=== PATIENT | male | born 1960 | race Caucasian/White ===

== ENCOUNTER → 2017-04-10 | Outpatient (CLI) | payer BC, SELFPAY | PROVIDERS: Visit Provider Family Medicine | DX: Z79.01 Long term (current) use of anticoagulants (principal); Z51.81 Encounter for therapeutic drug level monitoring | CPT/HCPCS: 36415; 85610 ==

== ENCOUNTER → 2017-05-15 08:19 | Outpatient (CLI) | payer BC, SELFPAY ==
[2017-05-15 08:43] LABS: INR 2.21 (0.9-1.1); Prothrombin Time 24.1 seconds (9.4-11.8)
== END ==
PROVIDERS: PCP Family Medicine; Visit Provider Family Medicine
DX: Z79.01 Long term (current) use of anticoagulants (principal); Z51.81 Encounter for therapeutic drug level monitoring
CPT/HCPCS: 36415; 85610

== ENCOUNTER → 2017-06-11 09:01 | Outpatient (CLI) | payer BC, SELFPAY ==
[2017-06-11 09:22] LABS: INR 1.42 (0.9-1.1); Prothrombin Time 15.4 seconds (9.4-11.8)
== END ==
PROVIDERS: Visit Provider Family Medicine
DX: Z51.81 Encounter for therapeutic drug level monitoring (principal); Z79.01 Long term (current) use of anticoagulants
CPT/HCPCS: 36415; 85610

== ENCOUNTER → 2017-07-03 10:55 | Outpatient (CLI) | payer BC, SELFPAY ==
[2017-07-03 11:16] LABS: INR 2.64 (0.9-1.1); Prothrombin Time 28.8 seconds (9.4-11.8)
== END ==
PROVIDERS: Visit Provider Family Medicine
DX: Z79.01 Long term (current) use of anticoagulants (principal); Z51.81 Encounter for therapeutic drug level monitoring
CPT/HCPCS: 36415; 85610

== ENCOUNTER → 2017-08-31 11:09 | Outpatient (CLI) | payer BC, SELFPAY ==
[2017-08-31 11:37] LABS: INR 2.38 (0.9-1.1); Prothrombin Time 25.9 seconds (9.4-11.8)
== END ==
PROVIDERS: Visit Provider Family Medicine
DX: Z79.01 Long term (current) use of anticoagulants (principal); Z51.81 Encounter for therapeutic drug level monitoring
CPT/HCPCS: 36415; 85610

== ENCOUNTER → 2017-10-09 08:34 | Outpatient (CLI) | payer BC, SELFPAY ==
[2017-10-09 08:59] LABS: INR 2.44 (0.9-1.1); Prothrombin Time 24.5 seconds (9.4-11.8)
== END ==
PROVIDERS: Visit Provider Family Medicine
DX: Z79.01 Long term (current) use of anticoagulants (principal); Z51.81 Encounter for therapeutic drug level monitoring
CPT/HCPCS: 36415; 85610

== ENCOUNTER → 2017-11-13 08:20 | Outpatient (CLI) | payer BC, SELFPAY ==
[2017-11-13 08:42] LABS: INR 2.19 (0.9-1.1); Prothrombin Time 22.1 seconds (9.4-11.8)
== END ==
PROVIDERS: Visit Provider Family Medicine
DX: Z79.01 Long term (current) use of anticoagulants (principal); Z51.81 Encounter for therapeutic drug level monitoring
CPT/HCPCS: 36415; 85610

== ENCOUNTER → 2018-03-05 11:57 | Outpatient (CLI) | payer BC, SELFPAY ==
[2018-03-05 12:16] LABS: INR 2.53 (0.9-1.1); Prothrombin Time 25.4 seconds (9.4-11.8)
== END ==
PROVIDERS: Visit Provider Family Medicine
DX: Z51.81 Encounter for therapeutic drug level monitoring (principal); Z79.01 Long term (current) use of anticoagulants
CPT/HCPCS: 36415; 85610

== ENCOUNTER → 2018-04-02 10:36 | Outpatient (CLI) | payer BC, SELFPAY ==
[2018-04-02 11:39] LABS: INR 2.98 (0.9-1.1); Prothrombin Time 29.7 seconds (9.4-11.8)
== END ==
PROVIDERS: Visit Provider Family Medicine
DX: Z79.01 Long term (current) use of anticoagulants (principal)
CPT/HCPCS: 36415; 85610

== ENCOUNTER → 2018-06-04 12:51 | Outpatient (CLI) | payer BC, SELFPAY ==
[2018-06-04 13:09] LABS: INR 2.46 (0.9-1.1); Prothrombin Time 24.7 seconds (9.4-11.8)
== END ==
PROVIDERS: Visit Provider Family Medicine
DX: Z51.81 Encounter for therapeutic drug level monitoring (principal); Z79.01 Long term (current) use of anticoagulants
CPT/HCPCS: 36415; 85610

== ENCOUNTER → 2018-07-02 08:01 | Outpatient (CLI) | payer BC, SELFPAY ==
[2018-07-02 08:42] LABS: INR 3.14 (0.9-1.1); Prothrombin Time 31.3 seconds (9.4-11.8)
== END ==
PROVIDERS: Visit Provider Family Medicine
DX: Z51.81 Encounter for therapeutic drug level monitoring (principal); Z79.01 Long term (current) use of anticoagulants
CPT/HCPCS: 36415; 85610

== ENCOUNTER → 2018-09-03 10:37 | Outpatient (CLI) | payer BC, SELFPAY ==
[2018-09-03 10:56] LABS: INR 2.84 (0.9-1.1); Prothrombin Time 28.1 seconds (9.4-11.8)
== END ==
PROVIDERS: Visit Provider Family Medicine
DX: Z51.81 Encounter for therapeutic drug level monitoring (principal); Z79.01 Long term (current) use of anticoagulants
CPT/HCPCS: 36415; 85610

== ENCOUNTER → 2018-10-15 09:56 | Outpatient (CLI) | payer BC, SELFPAY ==
[2018-10-15 10:35] LABS: INR 2.84 (0.9-1.1); Prothrombin Time 28.1 seconds (9.4-11.8)
== END ==
PROVIDERS: Visit Provider Family Medicine
DX: Z51.81 Encounter for therapeutic drug level monitoring (principal); Z79.01 Long term (current) use of anticoagulants
CPT/HCPCS: 36415; 85610

== ENCOUNTER → 2018-12-24 11:23 | Outpatient (CLI) | payer BC, SELFPAY ==
[2018-12-24 11:47] LABS: INR 3.02 (0.9-1.1); Prothrombin Time 29.8 seconds (9.4-11.8)
== END ==
PROVIDERS: Visit Provider Family Medicine
DX: Z51.81 Encounter for therapeutic drug level monitoring (principal); Z79.01 Long term (current) use of anticoagulants; Z86.718 Personal history of other venous thrombosis and embolism
CPT/HCPCS: 36415; 85610

== ENCOUNTER → 2019-03-04 09:39 | Outpatient (CLI) | payer BC, SELFPAY ==
[2019-03-04 10:10] LABS: INR 2.78 (0.9-1.1); Prothrombin Time 27.5 seconds (9.4-11.8)
== END ==
PROVIDERS: Visit Provider Family Medicine
DX: Z51.81 Encounter for therapeutic drug level monitoring (principal); Z79.01 Long term (current) use of anticoagulants; Z86.718 Personal history of other venous thrombosis and embolism
CPT/HCPCS: 36415; 85610

== ENCOUNTER → 2019-04-08 12:54 | Outpatient (CLI) | payer BC, SELFPAY ==
[2019-04-08 14:29] LABS: INR 2.98 (0.9-1.1); Prothrombin Time 29.4 seconds (9.4-11.8)
== END ==
PROVIDERS: Visit Provider Family Medicine
DX: Z51.81 Encounter for therapeutic drug level monitoring (principal); Z79.01 Long term (current) use of anticoagulants; Z86.718 Personal history of other venous thrombosis and embolism
CPT/HCPCS: 36415; 85610

== ENCOUNTER → 2019-06-10 11:40 | Outpatient (CLI) | payer BC, SELFPAY ==
[2019-06-10 12:15] LABS: INR 2.72 (0.9-1.1)
== END ==
PROVIDERS: Visit Provider Family Medicine
DX: Z51.81 Encounter for therapeutic drug level monitoring (principal); Z79.01 Long term (current) use of anticoagulants; Z86.718 Personal history of other venous thrombosis and embolism
CPT/HCPCS: 36415; 85610

== ENCOUNTER → 2019-07-08 12:02 | Outpatient (CLI) | payer BC, SELFPAY ==
[2019-07-08 12:23] LABS: INR 2.68 (0.9-1.1); Prothrombin Time 26.6 seconds (9.4-11.8)
== END ==
PROVIDERS: Visit Provider Family Medicine
DX: Z51.81 Encounter for therapeutic drug level monitoring (principal); Z79.01 Long term (current) use of anticoagulants; Z86.718 Personal history of other venous thrombosis and embolism
CPT/HCPCS: 36415; 85610

== ENCOUNTER → 2019-08-03 11:01 | Outpatient (CLI) | payer BC, SELFPAY ==
--- NOTE | 2019-08-03 11:06 | XR_ITS ---
PROCEDURE: XR HAND LT MIN 3V CLINICAL INDICATION: Pain and stiffness COMPARISON: No exams were available for comparison FINDINGS: No fracture or dislocation. No lytic or blastic change. There is normal mineralization. Minimal osteoarthritic changes are present at the 1st metacarpal-carpal joint with some mild lateral subluxation of the 1st metacarpal. Ring artifact is present at the proximal phalanx of the 4th finger Other findings:None. IMPRESSION: Minimal osteoarthritic change 1st metacarpal-carpal joint Dictated by: Jacob Bah MD 08/03/2019 12:27 Electronically signed by Jacob Bah MD in [place] 08/03/2019 12:27
--- NOTE | 2019-08-03 11:06 | XR_ITS ---
PROCEDURE: XR HAND RT MIN 3V CLINICAL INDICATION: POLYARTHRALGIA COMPARISON: No exams were available for comparison FINDINGS: There are mild osteoarthritic changes the 1st metacarpophalangeal joint and 1st interphalangeal joint No fracture or dislocation. No lytic or blastic change. Other findings:None. IMPRESSION: Mild osteoarthritis of the thumb Dictated by: Jacob Bah MD 08/03/2019 12:12 Electronically signed by Jacob Bah MD in [place] 08/03/2019 12:12
== END ==
PROVIDERS: PCP Family Medicine; Visit Provider Family Medicine
DX: M25.50 Pain in unspecified joint (principal); M79.642 Pain in left hand; M79.641 Pain in right hand
CPT/HCPCS: 73130

== ENCOUNTER → 2019-09-09 10:03 | Outpatient (CLI) | payer BC, SELFPAY ==
[2019-09-09 11:00] LABS: INR 2.55 (0.9-1.1); Prothrombin Time 24.7 seconds (9.4-11.8)
== END ==
PROVIDERS: Visit Provider Family Medicine
DX: Z86.718 Personal history of other venous thrombosis and embolism (principal); Z79.01 Long term (current) use of anticoagulants
CPT/HCPCS: 36415; 85610

== ENCOUNTER → 2019-10-06 14:49 | Outpatient (CLI) | payer BC, SELFPAY ==
[2019-10-06 15:09] LABS: INR 2.69 (0.9-1.1)
== END ==
PROVIDERS: Visit Provider Family Medicine
DX: Z51.81 Encounter for therapeutic drug level monitoring (principal); Z79.01 Long term (current) use of anticoagulants; Z86.718 Personal history of other venous thrombosis and embolism
CPT/HCPCS: 36415; 85610

== ENCOUNTER → 2019-12-30 09:48 | Outpatient (CLI) | payer BC, SELFPAY ==
[2019-12-30 10:19] LABS: INR 2.63 (0.9-1.1); Prothrombin Time 25.4 seconds (9.4-11.8)
== END ==
PROVIDERS: Visit Provider Family Medicine
DX: Z51.81 Encounter for therapeutic drug level monitoring (principal); Z79.01 Long term (current) use of anticoagulants; Z86.718 Personal history of other venous thrombosis and embolism
CPT/HCPCS: 36415; 85610

== ENCOUNTER → 2020-02-09 11:09 | Outpatient (CLI) | payer BC, SELFPAY ==
[2020-02-09 12:06] LABS: INR 2.48 (0.9-1.1); Prothrombin Time 25.3 seconds (9.4-11.8)
== END ==
PROVIDERS: Visit Provider Family Medicine
DX: Z51.81 Encounter for therapeutic drug level monitoring (principal); Z79.01 Long term (current) use of anticoagulants; Z86.718 Personal history of other venous thrombosis and embolism
CPT/HCPCS: 36415; 85610

== ENCOUNTER → 2020-03-16 11:12 | Outpatient (CLI) | payer BC, SELFPAY ==
[2020-03-16 12:14] LABS: INR 2.81 (0.9-1.1); Prothrombin Time 28.4 seconds (9.4-11.8)
== END ==
PROVIDERS: Visit Provider Family Medicine
DX: Z51.81 Encounter for therapeutic drug level monitoring (principal); Z79.01 Long term (current) use of anticoagulants; Z86.718 Personal history of other venous thrombosis and embolism
CPT/HCPCS: 36415; 85610

== ENCOUNTER → 2020-04-20 12:01 | Outpatient (CLI) | payer BC, SELFPAY ==
[2020-04-20 13:04] LABS: INR 2.31 (0.9-1.1); Prothrombin Time 23.8 seconds (9.4-11.8)
== END ==
PROVIDERS: Visit Provider Family Medicine
DX: Z51.81 Encounter for therapeutic drug level monitoring (principal); Z79.01 Long term (current) use of anticoagulants; Z86.718 Personal history of other venous thrombosis and embolism
CPT/HCPCS: 36415; 85610

== ENCOUNTER → 2020-06-01 09:27 | Outpatient (CLI) | payer BC, SELFPAY ==
[2020-06-01 10:30] LABS: Chloride 106 mmol/L (98-107); Sodium 141 mmol/L (136-145)
[2020-06-01 10:31] LABS: Potassium 4.6 mmoL/L (3.5-5.1)
[2020-06-01 10:33] LABS: Alanine Aminotransferase 26 U/L (12-78); Albumin Level 4.5 g/dl (3.5-5.0); Albumin/Globulin Ratio 1.3 (1.1-1.8); Alkaline Phosphatase 52 U/L (38-126); Anion Gap 12.6 mEq/L (5-15); Aspartate Amino Transferase 26 U/L (17-59); Bilirubin,Total 0.8 mg/dl (0.2-1.3); Blood Urea Nitrogen 22 mg/dl (9-20); Carbon Dioxide 27 mmol/L (22.0-30.0); Cholesterol 132 mg/dl (140-200); Estimated Glomerular Filt Rate 68 ml/min (>60); GFR (African American) 82 ML/MIN (>60); Globulin 3.4 g/dL (1.3-3.2); Total Protein,Serum 7.9 g/dl (6.3-8.2); Triglycerides 154 mg/dl (30-150); VLDL Cholesterol 31 mg/dL (0-40)
[2020-06-01 10:34] LABS: Calcium 9.7 mg/dl (8.4-10.2); Chol/HDL Ratio 3.3 (1-3.5); Glucose 133 mg/dl (74-100); HDL Cholesterol 40 mg/dl (40-60)
[2020-06-01 10:45] LABS: Direct LDL Cholesterol 64.15 mg/dL (100-129)
[2020-06-01 10:48] LABS: Creatinine,Urine Random 81 mg/dL (Not Estab.); Microalbumin < 6.000 mg/L (0-16.7)
[2020-06-01 10:50] LABS: 25-OH Vitamin D, Total 51.3 ng/mL (30-100)
[2020-06-01 10:50] LABS: INR 1.95 (0.9-1.1); Prothrombin Time 20.4 seconds (9.4-11.8)
[2020-06-01 10:59] LABS: Uric Acid 3.8 mg/dl (3.5-8.5)
[2020-06-01 11:05] LABS: Thyroid Stimulating Hormone 1.08 uIU/mL (0.465-4.68)
[2020-06-01 11:19] LABS: Hemoglobin A1C 7.1 % (4.0-6.0)
== END ==
PROVIDERS: Visit Provider Family Medicine
DX: E11.9 Type 2 diabetes mellitus without complications (principal); E78.2 Mixed hyperlipidemia; E55.9 Vitamin D deficiency, unspecified; I10 Essential (primary) hypertension; M1A.9XX0 Chronic gout, unspecified, without tophus (tophi); Z79.84 Long term (current) use of oral hypoglycemic drugs
CPT/HCPCS: 36415; 80053; 80061; 82043; 82306; 82570; 83036; 84443; 84550; 85610

== ENCOUNTER → 2020-07-06 10:21 | Outpatient (CLI) | payer BC, SELFPAY ==
[2020-07-06 10:42] LABS: INR 1.82 (0.9-1.1); Prothrombin Time 20.5 seconds (10.1-12.5)
== END ==
PROVIDERS: Visit Provider Family Medicine
DX: Z79.01 Long term (current) use of anticoagulants (principal); Z86.718 Personal history of other venous thrombosis and embolism
CPT/HCPCS: 36415; 85610

== ENCOUNTER → 2020-08-17 08:55 | Outpatient (CLI) | payer BC, SELFPAY ==
[2020-08-17 09:41] LABS: INR 2.63 (0.9-1.1); Prothrombin Time 28.9 seconds (10.1-12.5)
== END ==
PROVIDERS: Visit Provider Family Medicine
DX: Z51.81 Encounter for therapeutic drug level monitoring (principal); Z79.01 Long term (current) use of anticoagulants; Z86.718 Personal history of other venous thrombosis and embolism
CPT/HCPCS: 36415; 85610

== ENCOUNTER → 2020-09-14 09:21 | Outpatient (CLI) | payer BC, SELFPAY ==
[2020-09-14 09:54] LABS: Prothrombin Time 43.5 seconds (10.1-12.5)
[2020-09-14 10:18] LABS: INR 4.09 (0.9-1.1)
== END ==
PROVIDERS: Visit Provider Family Medicine
DX: Z51.81 Encounter for therapeutic drug level monitoring (principal); Z79.01 Long term (current) use of anticoagulants; Z86.718 Personal history of other venous thrombosis and embolism
CPT/HCPCS: 36415; 85610

== ENCOUNTER 2020-09-14 13:19 | Emergency (ER) | payer BC, SELFPAY ==
[2020-09-14 13:59] VITALS: BP 155/87; PULSE 86; RESP 14; TEMP 36.8; O2SAT 98; BMI 36.6
--- NOTE | 2020-09-14 14:09 | HMH.EDUTC ---
[facility] [place] Disposition Clinical Impression: Left leg cellulitis, Abscess of left leg Disposition: Home, Self-Care Condition on Discharge: Good Instructions: Cellulitis, Boil Additional Instructions: Keep the wounds clean and dry. Follow up with your regular doctor. Take the antibiotics as directed and apply the topical antibiotics as directed. Follow up with your primary care doctor. Since you are diabetic, it makes infections like this very worrisome. You should f/u for a recheck in 48 to 72 hours to make sure it is getting better instead of worse. GO TO THE ER FOR ANY WORSENING SYMPTOMS Prescriptions: Sulfamethoxazole/Trimethoprim [Bactrim DS tablet] 1 each PO BID 10 Days #20 tab Transmission Status: Received by [facility] # cephALEXin [cephALEXin 500mg capsule] 500 mg PO Q6H 10 Days #40 cap Transmission Status: Received by [facility] # Referrals: Drew Stout MD [Primary Care Provider] - Time of Disposition: 14:19 Medical Decision Making - Medical Records Medical records reviewed: No: I reviewed the patient's medical records. - Jose Inquiry Pt receiving controlled substance: No Vital Signs: 09/14/20 13:59 09/14/20 14:28 Temperature 98.3 F 98.3 F Temperature Source Oral Pulse Rate 85 Pulse Rate [Right] 86 Respiratory Rate 14 16 Blood Pressure 149/89 H Blood Pressure [Right Arm] 155/87 H Blood Pressure Mean [Right Arm] 109 02 Sat by Pulse Oximetry 98 Orders (Tests/Meds): ED MEDICATIONS Discontinued Medications Generic Name Dose Route Start Last Admin Trade Name Manuelq PRN Reason Stop Dose Admin Ceftriaxone Sodium 1 gm 09/14/20 14:25 09/14/20 14:26 Ceftriaxone 1gm Vial IM 09/14/20 14:26 1 gm ONCE ONE Administration Protocol Lidocaine HCl 0 ml 09/14/20 14:25 09/14/20 14:26 Lidocaine 1% 5ml Pf Vial IM 09/14/20 14:26 2 ml ONCE ONE Administration ORDERS Category Date Time Status Wound Culture and Gram Stain Stat Micro 09/14/20 14:30 Results [facility] [place] HPI - General Stated complaint: Poss Bug bite on left leg Time Seen by Provider: 09/14/20 14:15 Mode of Arrival: Ambulatory Source of Information: Patient Limitations: No Limitations Description of Symptoms (Recalled from Triage Doc. by RN): pt c/o of a bug bit on his lower L barrow. it appears as cellulitis on the L outer barrow. the area is purple with red all around it and oozing red/purulent drainage. HEENT Symptoms (Recalled from RN notes): No Resp Symptoms (Recalled from RN notes): No Skin Symptoms (Recalled from RN notes): Yes (L outer barrow cellulitis) MS Symptoms (Recalled from RN notes): No Functional Status (Recalled from RN notes): na - History of Present Illness Provider Complaint: He states that for the past 2 days he has had a red area on his left lower leg that has bene painful and swollen. There is now an open area in its center that has a moderate amount of clear drainage coming from it. - Related Data Home Medications Medication Instructions Recorded Confirmed Empagliflozin [Jardiance] 10 mg PO DAILY 11/28/18 11/28/18 Enoxaparin Sodium [Lovenox 100 mg SQ DAILY 11/28/18 11/28/18 100mg/mL syringe] Fenofibrate 40 mg PO DAILY 11/28/18 11/28/18 Metformin HCl [Metformin 1000mg 1,000 mg PO BID 11/28/18 11/28/18 Tablets] Multivit-Min/FA/Lycopen/Lutein 1 tab PO DAILY 11/28/18 11/28/18 [Centrum Silver Men Tablet] Pravastatin Sodium [Pravachol] 20 mg PO DAILY 11/28/18 11/28/18 Warfarin Sodium [Jantoven] 10 mg PO DAILY 11/28/18 11/28/18 allopurinoL [Allopurinol 100mg 100 mg PO DAILY 11/28/18 11/28/18 tablet] Previous Rx's Medication Instructions Recorded Sulfamethoxazole/Trimethoprim 1 each PO BID 10 Days #20 tab 09/14/20 [Bactrim DS tablet] cephALEXin [cephALEXin 500mg 500 mg PO Q6H 10 Days #40 cap 09/14/20 capsule] Allergies Allergy/AdvReac Type Severity Reaction Status Date / Time No Known Allergies Allergy
[2020-09-14 14:28] VITALS: BP 149/89; PULSE 85; RESP 16; TEMP 36.8
== END 2020-09-14 14:42 | disposition home or self-care (01) ==
PROVIDERS: Emergency Provider Nurse Practitioner Family; PCP Family Medicine
DX: L03.116 Cellulitis of left lower limb (principal); W57.XXXA Bitten or stung by nonvenomous insect and other nonvenomous arthropods, initial encounter
CPT/HCPCS: 87070; 87077; 87186; 87205; 96372; 99202; G0463

== ENCOUNTER → 2020-11-02 11:07 | Outpatient (CLI) | payer BC, SELFPAY ==
[2020-11-02 11:36] LABS: Prothrombin Time 27.7 seconds (10.1-12.5)
[2020-11-02 11:39] LABS: INR 2.51 (0.9-1.1)
== END ==
PROVIDERS: Visit Provider Family Medicine
DX: Z51.81 Encounter for therapeutic drug level monitoring (principal); Z79.01 Long term (current) use of anticoagulants; Z86.718 Personal history of other venous thrombosis and embolism
CPT/HCPCS: 85610

== ENCOUNTER → 2020-12-21 10:43 | Outpatient (CLI) | payer BC, SELFPAY ==
[2020-12-21 11:18] LABS: Prothrombin Time 37.2 seconds (10.1-12.5)
[2020-12-21 11:26] LABS: INR 3.46 (0.9-1.1)
== END ==
PROVIDERS: Visit Provider Family Medicine
DX: Z51.81 Encounter for therapeutic drug level monitoring (principal); Z79.01 Long term (current) use of anticoagulants; Z86.718 Personal history of other venous thrombosis and embolism
CPT/HCPCS: 36415; 85610

== ENCOUNTER → 2021-01-24 09:15 | Outpatient (CLI) | payer BC, SELFPAY ==
[2021-01-24 09:59] LABS: INR 2.85 (0.9-1.1); Prothrombin Time 29.8 seconds (10.1-12.5)
== END ==
PROVIDERS: Visit Provider Family Medicine
DX: Z51.81 Encounter for therapeutic drug level monitoring (principal); Z79.01 Long term (current) use of anticoagulants; Z86.718 Personal history of other venous thrombosis and embolism
CPT/HCPCS: 36415; 85610

== ENCOUNTER → 2021-02-22 11:51 | Outpatient (CLI) | payer BC, SELFPAY ==
[2021-02-22 14:12] LABS: INR 1.83 (0.9-1.1); Prothrombin Time 19.8 seconds (10.1-12.5)
== END ==
PROVIDERS: Visit Provider Family Medicine
DX: Z51.81 Encounter for therapeutic drug level monitoring (principal); Z79.01 Long term (current) use of anticoagulants; Z86.718 Personal history of other venous thrombosis and embolism
CPT/HCPCS: 36415; 85610

== ENCOUNTER → 2021-03-29 10:20 | Outpatient (CLI) | payer BC, SELFPAY ==
[2021-03-29 10:47] LABS: INR 3.25 (0.9-1.1); Prothrombin Time 33.7 seconds (10.1-12.5)
== END ==
PROVIDERS: Visit Provider Family Medicine
DX: Z51.81 Encounter for therapeutic drug level monitoring (principal); Z79.01 Long term (current) use of anticoagulants; Z86.718 Personal history of other venous thrombosis and embolism
CPT/HCPCS: 36415; 85610

== ENCOUNTER → 2021-06-07 08:43 | Outpatient (CLI) | payer BC, SELFPAY ==
[2021-06-07 09:46] LABS: INR 2.03 (0.9-1.1); Prothrombin Time 21.8 seconds (10.1-12.5)
== END ==
PROVIDERS: PCP Family Medicine; Visit Provider Family Medicine
DX: Z51.81 Encounter for therapeutic drug level monitoring (principal); Z79.01 Long term (current) use of anticoagulants; Z86.718 Personal history of other venous thrombosis and embolism
CPT/HCPCS: 36415; 85610

== ENCOUNTER → 2021-07-19 08:56 | Outpatient (CLI) | payer BC, SELFPAY ==
[2021-07-19 09:34] LABS: INR 2.27 (0.9-1.1); Prothrombin Time 24.1 seconds (10.1-12.5)
== END ==
PROVIDERS: Visit Provider Family Medicine
DX: Z51.81 Encounter for therapeutic drug level monitoring (principal); Z79.01 Long term (current) use of anticoagulants; Z86.718 Personal history of other venous thrombosis and embolism
CPT/HCPCS: 36415; 85610

== ENCOUNTER → 2021-09-01 10:36 | Outpatient (CLI) | payer BC, SELFPAY ==
[2021-09-01 11:54] LABS: INR 2.02 (0.9-1.1); Prothrombin Time 21.7 seconds (10.1-12.5)
== END ==
PROVIDERS: Family Medicine; Visit Provider Family Medicine
DX: Z51.81 Encounter for therapeutic drug level monitoring (principal); Z79.01 Long term (current) use of anticoagulants; Z86.718 Personal history of other venous thrombosis and embolism
CPT/HCPCS: 36415; 85610

== ENCOUNTER → 2021-11-29 12:01 | Outpatient (CLI) | payer BC, SELFPAY ==
[2021-11-29 12:49] LABS: INR 2.34 (0.9-1.1); Prothrombin Time 24.8 seconds (10.1-12.5)
== END ==
PROVIDERS: PCP Family Medicine; Visit Provider Family Medicine
DX: Z51.81 Encounter for therapeutic drug level monitoring (principal); Z79.01 Long term (current) use of anticoagulants; Z86.718 Personal history of other venous thrombosis and embolism
CPT/HCPCS: 36415; 85610

== ENCOUNTER → 2022-01-10 09:17 | Outpatient (CLI) | payer BC, SELFPAY ==
[2022-01-10 10:02] LABS: INR 2.93 (0.9-1.1); Prothrombin Time 29.8 seconds (10.1-12.5)
== END ==
PROVIDERS: PCP Family Medicine; Visit Provider Family Medicine
DX: Z51.81 Encounter for therapeutic drug level monitoring (principal); Z79.01 Long term (current) use of anticoagulants; Z86.718 Personal history of other venous thrombosis and embolism
CPT/HCPCS: 36415; 85610

== ENCOUNTER → 2022-02-14 09:56 | Outpatient (CLI) | payer BC, SELFPAY ==
[2022-02-14 10:58] LABS: INR 2.29 (0.9-1.1); Prothrombin Time 23.6 seconds (10.1-12.5)
== END ==
PROVIDERS: PCP Family Medicine; Visit Provider Family Medicine
DX: Z51.81 Encounter for therapeutic drug level monitoring (principal); Z79.01 Long term (current) use of anticoagulants; Z86.718 Personal history of other venous thrombosis and embolism
CPT/HCPCS: 36415; 85610

== ENCOUNTER 2022-02-28 10:33 | Emergency (ER) | payer BC, SELFPAY ==
--- NOTE | 2022-02-28 11:27 | EXP.UTC ---
Discharge Plan Disposition Patient Disposition: Home, Self-Care Condition: Good Prescriptions Prescriptions: New cephalexin 500 mg capsule 500 mg PO QID Qty: 40 0RF mupirocin 2 % ointment 1 applic topical TID 7 Days Qty: 1 0RF No Action warfarin 10 MG tablet 10 mg PO DAILY allopurinol 100 MG tablet 100 mg PO DAILY metformin 1,000 MG tablet 1,000 mg PO BID pravastatin 20 MG tablet 20 mg PO DAILY enoxaparin 100 MG/ML syringe 100 mg SQ DAILY fenofibrate 40 MG tablet 40 mg PO DAILY wmoyhjrr-qpx-AT-lycopen-lutein 1 EACH tablet 1 tab PO DAILY empagliflozin 10 MG tablet 10 mg PO DAILY sulfamethoxazole-trimethoprim 1 EACH tablet 1 each PO BID 10 Days Qty: 20 0RF cephalexin 500 MG capsule 500 mg PO Q6H 10 Days Qty: 40 0RF Referrals Follow up/Referrals: Drew Stout MD [Primary Care Provider] - See instructions Activity Restrictions/Add. Instructions Additional Instructions/Restrictions: Keep the wound clean and dry. Watch the wound for signs of infection, such as redness, swelling, drainage, fever. etc. take tylenol for pain. Follow up with your regular doctor. GO TO THE ER FOR ANY WORSENING SYMPTOMS OR CONCERNS. Clinical Impressions Clinical Impression: Cellulitis of left leg, Ulcer of left lower extremity Instructions Patient Instructions: Cellulitis Discharge ED [place] Óscar Calhoun [facility] [place] General Stated complaint: left leg redness,sore Time Seen by Provider: 02/28/22 11:25 History of Present Illness Provider Complaint: He is here with a wound and redness of his left lower leg. He states that he first noticed the wound last night. He is a diabetic. He had a similar wound on his other leg last year that he had to take rocephin shots to get it to heal. Related Data Home Medications Medication Instructions Recorded Confirmed allopurinol 100 mg tablet 100 mg PO DAILY blood pressure 11/28/18 11/28/18 empagliflozin 10 mg tablet 10 mg PO DAILY Diabetes 11/28/18 11/28/18 enoxaparin 100 mg/mL subcutaneous 100 mg SQ DAILY Blood thinner 11/28/18 11/28/18 syringe fenofibrate 40 mg tablet 40 mg PO DAILY cholestrol 11/28/18 11/28/18 metformin 1,000 mg tablet 1,000 mg PO BID Diabetes 11/28/18 11/28/18 rrjqzsjq-yjn-estxw acid 300 1 tab PO DAILY Supplement 11/28/18 11/28/18 mcg-lycopene 600 mcg-lutein 300 mcg tablet pravastatin 20 mg tablet 20 mg PO DAILY cholestrol 11/28/18 11/28/18 warfarin 10 mg tablet 10 mg PO DAILY Blood thinner 11/28/18 11/28/18 Previous Rx's Medication Instructions Recorded cephalexin 500 mg capsule 500 mg PO Q6H 10 days #40 caps 09/14/20 sulfamethoxazole 800 1 each PO BID 10 days #20 tabs 09/14/20 mg-trimethoprim 160 mg tablet cephalexin 500 mg capsule 500 mg PO QID #40 caps 02/28/22 mupirocin 2 % topical ointment 1 applic topical TID 7 days #1 g 02/28/22 Allergies Allergy/AdvReac Type Severity Reaction Status Date / Time No Known Allergies Allergy Verified 02/28/22 11:35 PFSH PFS Social History Smoking Status: Former smoker alcohol intake: former current occupational status: employed Travel in the last 8 weeks: None caffeine: Yes ROS Obtained: Yes All systems reviewed & no additional complaints except as documented Constitutional Constitutional: Denies chills and Denies fever(s) Eyes Eyes: Denies eye discharge ENT Ears, Nose, Mouth, and Throat: Denies dizziness, Denies otalgia and Denies sore throat Cardiovascular Cardiovascular: Denies chest pain Respiratory Respiratory: Denies shortness of breath, Denies chest congestion, Denies cough, Denies stridor and Denies wheezing Gastrointestinal Gastrointestingal: Denies nausea or vomiting Musculoskeletal Musculoskeletal: Reports system reviewed and no additional complaints, except as documented and Denies arthralgias Integumentary/Breasts Skin
[2022-02-28 11:32] VITALS: BP 182/68; PULSE 69; RESP 18; TEMP 36.6; O2SAT 95; BMI 36.6
[2022-02-28 12:02] VITALS: BP 0/0; PULSE 105; RESP 19; TEMP 38.2
== END 2022-02-28 12:02 | disposition home or self-care (01) ==
PROVIDERS: Emergency Provider Nurse Practitioner Family; PCP Family Medicine
DX: L03.116 Cellulitis of left lower limb (principal); E11.622 Type 2 diabetes mellitus with other skin ulcer; L97.921 Non-pressure chronic ulcer of unspecified part of left lower leg limited to breakdown of skin; Z79.84 Long term (current) use of oral hypoglycemic drugs; Z79.01 Long term (current) use of anticoagulants; Z79.899 Other long term (current) drug therapy
CPT/HCPCS: 87070; 87205; 96372; 99213; G0463; J0696

== ENCOUNTER → 2022-03-21 09:52 | Outpatient (CLI) | payer BC, SELFPAY ==
[2022-03-21 10:24] LABS: INR 2.48 (0.9-1.1); Prothrombin Time 25.4 seconds (10.1-12.5)
== END ==
PROVIDERS: PCP Family Medicine; Visit Provider Family Medicine
DX: Z51.81 Encounter for therapeutic drug level monitoring (principal); Z79.01 Long term (current) use of anticoagulants; Z86.718 Personal history of other venous thrombosis and embolism
CPT/HCPCS: 36415; 85610

== ENCOUNTER → 2022-05-30 10:37 | Outpatient (CLI) | payer BC, SELFPAY ==
[2022-05-30 13:23] LABS: Prothrombin Time 27.6 seconds (10.1-12.5)
== END ==
PROVIDERS: PCP Family Medicine; Visit Provider Family Medicine
DX: Z51.81 Encounter for therapeutic drug level monitoring (principal); Z79.01 Long term (current) use of anticoagulants
CPT/HCPCS: 36415; 85610

== ENCOUNTER → 2022-07-04 09:21 | Outpatient (CLI) | payer BC, SELFPAY ==
[2022-07-04 10:02] LABS: INR 3.35 (0.9-1.1); Prothrombin Time 33.8 seconds (10.1-12.5)
== END ==
PROVIDERS: PCP Family Medicine; Visit Provider Family Medicine
DX: Z51.81 Encounter for therapeutic drug level monitoring (principal); Z79.01 Long term (current) use of anticoagulants
CPT/HCPCS: 36415; 85610

== ENCOUNTER → 2022-08-07 11:38 | Outpatient (CLI) | payer BC, SELFPAY ==
[2022-08-07 12:07] LABS: INR 2.33 (0.9-1.1)
== END ==
PROVIDERS: PCP Family Medicine; Visit Provider Family Medicine
DX: Z51.81 Encounter for therapeutic drug level monitoring (principal); Z79.01 Long term (current) use of anticoagulants
CPT/HCPCS: 36415; 85610

== ENCOUNTER → 2022-09-12 11:16 | Outpatient (CLI) | payer BC, SELFPAY ==
[2022-09-12 12:53] LABS: INR 2.59 (0.9-1.1); Prothrombin Time 26.5 seconds (10.1-12.5)
== END ==
PROVIDERS: PCP Family Medicine; Visit Provider Family Medicine
DX: Z51.81 Encounter for therapeutic drug level monitoring (principal); Z79.01 Long term (current) use of anticoagulants
CPT/HCPCS: 36415; 85610

== ENCOUNTER → 2022-11-23 11:26 | Outpatient (CLI) | payer BC, SELFPAY ==
[2022-11-23 12:15] LABS: INR 2.18 (0.9-1.1); Prothrombin Time 22.4 seconds (10.1-12.5)
== END ==
PROVIDERS: PCP Family Medicine; Visit Provider Family Medicine
DX: Z51.81 Encounter for therapeutic drug level monitoring (principal); Z79.01 Long term (current) use of anticoagulants
CPT/HCPCS: 36415; 85610

== ENCOUNTER → 2022-12-19 12:22 | Outpatient (CLI) | payer BC, SELFPAY | PROVIDERS: PCP Family Medicine; Visit Provider Family Medicine | DX: Z51.81 Encounter for therapeutic drug level monitoring (principal); Z79.01 Long term (current) use of anticoagulants | CPT/HCPCS: 36415; 85610 ==

== ENCOUNTER → 2023-01-23 09:06 | Outpatient (CLI) | payer BC, SELFPAY ==
[2023-01-23 09:45] LABS: INR 3.78 (0.9-1.1); Prothrombin Time 37.4 seconds (10.1-12.5)
== END ==
PROVIDERS: PCP Family Medicine; Visit Provider Family Medicine
DX: Z51.81 Encounter for therapeutic drug level monitoring (principal); Z79.01 Long term (current) use of anticoagulants
CPT/HCPCS: 36415; 85610

== ENCOUNTER → 2023-02-24 16:02 | Outpatient (CLI) | payer BC, SELFPAY ==
[2023-02-24 16:32] LABS: Prothrombin Time 17.7 seconds (10.1-12.5)
== END ==
PROVIDERS: PCP Family Medicine; Visit Provider Family Medicine
DX: Z79.01 Long term (current) use of anticoagulants (principal); Z86.718 Personal history of other venous thrombosis and embolism
CPT/HCPCS: 36415; 85610

== ENCOUNTER → 2023-03-27 12:10 | Outpatient (CLI) | payer BC, SELFPAY ==
[2023-03-27 13:10] LABS: INR 2.47 (0.9-1.1); Prothrombin Time 25.1 seconds (10.1-12.5)
== END ==
PROVIDERS: PCP Family Medicine; Visit Provider Family Medicine
DX: Z79.01 Long term (current) use of anticoagulants (principal)
CPT/HCPCS: 36415; 85610

== ENCOUNTER 2023-06-03 15:40 | Outpatient (CLI) | payer BC, SELFPAY ==
[2023-06-03 16:30] LABS: INR 2.29 (0.9-1.1); Prothrombin Time 23.4 seconds (10.1-12.5)
== END 2023-06-03 23:59 ==
LOC: LAB 15:42
PROVIDERS: PCP Family Medicine; Visit Provider Family Medicine
DX: Z79.01 Long term (current) use of anticoagulants (principal)
CPT/HCPCS: 36415; 85610

== ENCOUNTER 2023-07-03 12:48 | Outpatient (CLI) | payer BC, SELFPAY ==
[2023-07-03 13:12] LABS: Prothrombin Time 24.5 seconds (10.1-12.5)
== END 2023-07-03 23:59 ==
LOC: LAB 12:50
PROVIDERS: PCP Family Medicine; Visit Provider Family Medicine
DX: Z79.01 Long term (current) use of anticoagulants (principal); Z86.718 Personal history of other venous thrombosis and embolism
CPT/HCPCS: 36415; 85610

== ENCOUNTER 2023-08-11 10:34 | Outpatient (CLI) | payer MEDICARE, OTHER, SELFPAY ==
[2023-08-11 11:02] LABS: INR 1.96 (0.9-1.1); Prothrombin Time 20.3 seconds (10.1-12.5)
== END 2023-08-11 23:59 | disposition home or self-care (01) ==
LOC: LAB 10:36
PROVIDERS: PCP Family Medicine; Visit Provider Family Medicine
DX: Z51.81 Encounter for therapeutic drug level monitoring; Z79.01 Long term (current) use of anticoagulants
CPT/HCPCS: 36415; 85610

== ENCOUNTER 2023-11-22 13:42 | Outpatient (CLI) | payer MEDICARE, OTHER, SELFPAY ==
[2023-11-22 14:34] LABS: INR 2.54 (0.9-1.1); Prothrombin Time 25.9 seconds (10.1-12.5)
== END 2023-11-22 23:59 | disposition home or self-care (01) ==
LOC: LAB 13:43
PROVIDERS: PCP Family Medicine; Visit Provider Family Medicine
DX: Z79.01 Long term (current) use of anticoagulants (principal)
CPT/HCPCS: 36415; 85610

== ENCOUNTER 2023-12-31 12:01 | Outpatient (CLI) | payer MEDICARE, OTHER, SELFPAY ==
[2023-12-31 12:34] LABS: INR 2.41 (0.9-1.1); Prothrombin Time 24.7 seconds (10.1-12.5)
== END 2023-12-31 23:59 | disposition home or self-care (01) ==
LOC: LAB 12:05
PROVIDERS: PCP Family Medicine; Visit Provider Family Medicine
DX: Z79.01 Long term (current) use of anticoagulants (principal); Z86.718 Personal history of other venous thrombosis and embolism
CPT/HCPCS: 36415; 85610

== ENCOUNTER 2024-01-27 10:40 | Outpatient (CLI) | payer MEDICARE, OTHER, SELFPAY ==
[2024-01-27 11:31] LABS: INR 1.84 (0.9-1.1); Prothrombin Time 19.4 seconds (10.1-12.5)
== END 2024-01-27 23:59 | disposition home or self-care (01) ==
LOC: LAB 10:42
PROVIDERS: PCP Family Medicine; Visit Provider Family Medicine
DX: Z79.01 Long term (current) use of anticoagulants (principal)
CPT/HCPCS: 36415; 85610

== ENCOUNTER 2024-03-14 10:28 | Outpatient (CLI) | payer MEDICARE, OTHER, SELFPAY ==
[2024-03-14 11:04] LABS: INR 1.85 (0.9-1.1); Prothrombin Time 19.5 seconds (10.1-12.5)
== END 2024-03-14 23:59 | disposition home or self-care (01) ==
LOC: LAB 10:29
PROVIDERS: PCP Family Medicine; Visit Provider Family Medicine
DX: Z79.01 Long term (current) use of anticoagulants (principal)
CPT/HCPCS: 36415; 85610

== ENCOUNTER 2024-06-05 11:54 | Outpatient (CLI) | payer MEDICARE, OTHER, SELFPAY ==
[2024-06-05 12:45] LABS: INR 1.76 (0.9-1.1); Prothrombin Time 18.3 seconds (9.2-12.1)
== END 2024-06-05 23:59 | disposition home or self-care (01) ==
LOC: LAB 11:55
PROVIDERS: PCP Family Medicine; Visit Provider Family Medicine
DX: Z79.01 Long term (current) use of anticoagulants (principal)
CPT/HCPCS: 36415; 85610

== ENCOUNTER 2024-07-07 12:51 | Outpatient (CLI) | payer MEDICARE, OTHER, SELFPAY ==
[2024-07-07 13:16] LABS: INR 2.56 (0.9-1.1); Prothrombin Time 26.1 seconds (10.1-12.5)
== END 2024-07-07 23:59 | disposition home or self-care (01) ==
LOC: LAB 12:53
PROVIDERS: PCP Family Medicine; Visit Provider Family Medicine
DX: Z79.01 Long term (current) use of anticoagulants (principal)
CPT/HCPCS: 36415; 85610

== ENCOUNTER 2024-08-03 07:38 | Day surgery (SDC) | payer MEDICARE, OTHER, SELFPAY ==
[2024-07-21 09:14] VITALS: BMI 37.3
--- NOTE | 2024-07-21 09:15 | SUR.PREOP ---
Left message w/ Dr Stout's office on 07/18/24 after speaking w/ patient to see if we could bridge w/ Lovenox for upcoming Colonoscopy on 08/03. Followed up w/ Dr Stout s office on 07/19, and , no response to message. Determined to schedule appointment for pt to address coumadin/Lovenox. Pt to call and schedule. Dr. Patterson office notified.
[2024-08-03 08:14] VITALS: BP 166/78; PULSE 64; RESP 18; TEMP 36.2; O2SAT 94
[2024-08-03 08:23] LABS: POC Glucose,Bedside 104 (70-110)
--- NOTE | 2024-08-03 08:40 | P.HP_ITS ---
History of Present Illness *Admission Date: 08/03/24 *Reason for visit:: Surveillance colonoscopy *History of present illness: Mr. Staton is a 64-year-old gentleman who is here for surveillance colonoscopy secondary to a personal history of colon polyps and family history of colon cancer (father). The examination is deemed medically necessary for surveillance. The patient has been seen, interviewed and examined prior to the procedure by both myself and the anesthesia provider. [facility] Disclaimer: The information contained in this section may have been updated after the patient was seen, as this information can be updated by other users. Medical History (Updated 08/03/24 @ 08:42 by Rakesh Patterson II, MD) HLD (hyperlipidemia) Diabetes DVT (deep venous thrombosis) Surgical History (Updated 07/21/24 @ 09:13 by Martin Mcbride RN) No history of previous surgery Family History (Updated 07/21/24 @ 09:14 by Martin Mcbride RN) Other Family history of DVT Family history of cancer Family history of heart disease Social History (Updated 07/21/24 @ 09:13 by Martin Mcbride RN) Smoking Status: Former smoker alcohol intake: former current occupational status: retired Travel in the last 8 weeks: Inside the [place] caffeine: Yes Have you lived/traveled outside US in past 30 days?: No Contact w/someone who lives/traveled outside US past 30 days?: No Exposure to someone with infectious disease in past 14 days?: No Do you have a fever (greater than 100.4 F or 38 C)?: No Have you tested positive for COVID-19: No Exposed to someone with COVID-19 in past 14 days?: No Do you have a sore throat?: No Do you have a cough?: No Do you have any weakness?: No Do you have any diarrhea?: No Are you experiencing any unusual bleeding?: No Do you have any muscle aches/pain?: No Do you have any abdominal pain?: No Are you experiencing loss of taste or smell?: No Review of Systems Review of Systems Review of systems (narrative): Negative *Cardiovascular Comments: Negative *Gastrointestinal Comments: Negative *Genitourinary Comments: Negative *Musculoskeletal Comments: Negative *Neurologic Comments: Negative Meds Home Medications and Allergies Home Medications ?Medication ?Instructions ?Recorded ?Confirmed ?Type allopurinol 100 mg tablet 100 mg PO DAILY blood pressure 11/28/18 08/03/24 History empagliflozin 10 mg tablet 10 mg PO DAILY Diabetes 11/28/18 08/03/24 History fenofibrate 40 mg tablet 40 mg PO DAILY cholestrol 11/28/18 08/03/24 History metformin 1,000 mg tablet 1,000 mg PO BID Diabetes 11/28/18 08/03/24 History rwofzreg-nw-sgdup 300 mcg-K 60 1 tab PO DAILY Supplement 11/28/18 08/03/24 History mcg-lycop 600 mcg-lutein 300 mcg tablet pravastatin 20 mg tablet 20 mg PO DAILY cholestrol 11/28/18 08/03/24 History warfarin 10 mg tablet 10 mg PO DAILY Blood thinner 11/28/18 08/03/24 History sodium,potassium,mag sulfates 17.5 See Rx Instructions PO .COMPLEX 07/21/24 08/03/24 Rx gram-3.13 gram-1.6 gram oral soln #354 mL (Suprep Bowel Prep Kit) enoxaparin 30 mg/0.3 mL 30 mg SQ Q12H 08/03/24 08/03/24 History subcutaneous syringe (Lovenox) New Prescriptions to Start Prescriptions: Allergies Allergy/AdvReac Type Severity Reaction Status Date / Time No Known Allergies Allergy Verified 02/28/22 11:35 Exam Data for Last 24 hours Vital signs and Labs for Last 24 Hours: Temp Pulse Resp BP Pulse Ox O2 Del Method 97.2 F L 64 18 166/78 H 94 L Room Air 08/03/24 08:14 08/03/24 08:14 08/03/24 08:14 08/03/24 08:14 08/03/24 08:14 08/03/24 08:14 Laboratory Results - last 24 hr 08/03/24 08:15: POC Glucose 104 *Routine HEENT Exam Head: Present normocephalic Eye: Present EOMI and PERRL ENT: Present mucous membranes moist *Routine Neck Exam Neck: Present supple *Routine Respiratory Exam Respiratory: Present CTA bilaterally *Routine Cardiovascular Exam Cardiovascular: Present RRR *Routine Abdominal Exam Abdominal: Present soft and normoactive bowel sounds; Absent tenderness *Routine Rectal Exam Rectal:: deferred *Routine Genitalia Exam Genitalia:: deferred *Routine Extremities Exam Extremities: Absent cyanosis, clubbing or edema *Routine Skin Exam Skin: Present warm; Absent rash *Routine Neurological Exam Neurological: Present alert and oriented X3 Assessment and Plan *Assessment and plan (1) Family history of colon cancer in father: Status: Acute Category: Medical Code(s): Z80.0 - Family history of malignant neoplasm of digestive organs (2) Personal history of colon polyps, unspecified: Status: Acute Category: Medical Code(s): Z86.0100 - Personal history of colon polyps, unspecified Plan A/P: 1. Personal history of colon polyps and family history of colon cancer (father) is the preprocedural diagnosis. The patient's last colonoscopy was November 2018. The patient will be anesthetized/sedated using MAC sedation. The patient has been seen and examined. Cardiac and lung assessment prior to the examination is stable. Proceed with planned surveillance colonoscopy.
--- NOTE | 2024-08-03 08:42 | HMH.PROCNOTE ---
[facility] Procedure Note Date: 08/03/24 Time: 09:17 Procedure Note:: Colonoscopy Procedure Report: Colonoscopy with cold snare polypectomy Endoscopist: Rakesh Patterson II, MD Referring physician: Drew Stout MD Date of Procedure: August 03, 2024 Equipment: Olympus 190 variable stiffness pediatric colonoscope Sedation: MAC sedation Indication: Mr. Staton is a 64-year-old gentleman who is here for follow-up surveillance colonoscopy. The patient's father had colon cancer at the age of 70. His first colonoscopy 15 or 16 years ago revealed 4-5 polyps which were removed. His colonoscopy 10 or 11 years ago (Rafiq Hough M.D.) revealed 1 or 2 polyps which were removed. His last colonoscopy with il in November 2018 revealed a single polyp (hyperplastic polyp) which was removed. He reports no abdominal pain, weight loss, change in his bowel habits or rectal bleeding. Procedure: Prior to the procedure, a history and physical exam was performed, and patient's medications and allergies were reviewed. The risks, benefits and alternatives of the sedation and procedure were discussed with the patient. All questions were answered and informed consent was obtained. The patient was brought to the procedure room. Patient identification and proposed procedure were verified by the physician and the nurse. The patient was placed in a left lateral decubitus position and the scope was passed under direct vision. Throughout the procedure, the patient's blood pressure, pulse, and oxygen saturations were monitored continuously. The colonoscopy was accomplished without difficulty. The patient tolerated the procedure well. Findings: On digital rectal examination there was normal rectal tone. There were no external hemorrhoids. The prostate was 2-3+, mildly firm but symmetric without nodules. The colonoscope was introduced through the anal canal to the rectum and advanced to the cecum. The ileocecal valve and appendiceal orifice were identified. The scope was advanced a short distance into the ileum which appeared grossly normal. The scope was then withdrawn into the colon. There were 5 diminutive polyps (ascending x 1 (4 mm), transverse x 1 (3 mm), descending x 2 (2 and 5 mm) and sigmoid x 1 (2 mm)). These were all removed via cold snare polypectomy. The remaining cecum, ascending and transverse colon and mucosa were grossly normal. There were scattered diverticuli throughout the descending and sigmoid colon (LEFT colon). Within the rectum there were rectal varices identified. Upon retroflexion within the rectum there were grade 2 internal hemorrhoids. The preparation was excellent throughout with [place] Preparation Score of 9. The cecal time was 12 minutes. Impression: 1. Diminutive colonic polyps x 5 2. Left-sided diverticulosis 3. Incidental rectal varices 4. Grade 2 internal hemorrhoids Plan: I will follow-up the polyp histology and recommend repeat surveillance colonoscopy again in 5 years. I would encourage psyllium bulking fiber supplementation on a long-term daily maintenance basis. Because of the incidental rectal varices, I will obtain hepatic fibrotic markers/FibroSure testing.
[2024-08-03 08:48] VITALS: O2SAT 98
--- NOTE | 2024-08-03 08:51 | EXP.ANES.CKL ---
[facility] Disclaimer: The information contained in this section may have been updated after the patient was seen, as this information can be updated by other users. Medical History HLD (hyperlipidemia) Diabetes DVT (deep venous thrombosis) Surgical History No history of previous surgery Family History Other Family history of DVT Family history of cancer Family history of heart disease Social History Smoking Status: Former smoker alcohol intake: former substance use type: unknown current occupational status: retired Travel in the last 8 weeks: Inside the [place] caffeine: Yes [facility] Anesthesia Checklist Patient Identification Patient Identification: Arm Band Structural Data Admitted From: Home Planned Operative Procedure/s: colonscopy Consent for Planned Operative Procedure(s) Verified: Yes Verified Documents: Surgical Consent and History and Physical NPO Status Verified Time NPO: 00:00 Additional verifications Anesthesia Reactions: No Airway Assessment Mallampati Score:: Class II Neurological Assessment Level of Consciousness: Awake, Alert and Appropriate Hx Seizures: No Anesthesia Plan Anesthesia Risk discussed: Yes Anesthesia Plan: Verified ASA Class: III Anesthesia Type: MAC
[2024-08-03 09:19] VITALS: BP 104/64; PULSE 71; RESP 17; O2SAT 92
[2024-08-03 09:29] VITALS: BP 102/58; PULSE 63; RESP 17; O2SAT 97
[2024-08-03 09:39] VITALS: BP 112/60; PULSE 74; RESP 17; O2SAT 93
[2024-08-03 09:49] VITALS: BP 105/73; PULSE 70; RESP 17; O2SAT 93
== END 2024-08-03 10:15 | disposition home or self-care (01) ==
PROVIDERS: PCP Family Medicine; Visit Provider Internal Medicine Gastroenterology
PROC: 0DJD8ZZ Inspection of Lower Intestinal Tract, Via Natural or Artificial Opening Endoscopic (ICD-10-PCS; CPT 45378; principal; 2024-08-03 09:00)
DX: D12.2 Benign neoplasm of ascending colon (principal); D12.4 Benign neoplasm of descending colon; D12.5 Benign neoplasm of sigmoid colon; D12.3 Benign neoplasm of transverse colon; K57.30 Diverticulosis of large intestine without perforation or abscess without bleeding; K64.1 Second degree hemorrhoids; Z80.0 Family history of malignant neoplasm of digestive organs; Z86.0100 Personal history of colon polyps, unspecified
CPT/HCPCS: 45385; 82962; J7120

== ENCOUNTER 2024-08-11 12:49 | Outpatient (CLI) | payer MEDICARE, OTHER, SELFPAY ==
--- OUTSIDE RECORDS SUMMARY | 2024-08-11 12:51 | XMS_ITS ---
Author Organization Unknown [facility] Start Date Provider Encounter for Check-up [id number] [facility]
[2024-08-11 13:40] LABS: Prothrombin Time 11.2 seconds (10.1-12.5)
[2024-08-16 00:08] LABS: ALT (SGPT) P5P 88 IU/L (0-55); AST (SGOT) P5P 50 IU/L (0-40); Alpha 2-Macroglobulins, Qn 317 mg/dL (110-276); Apolipoprotein A-1 143 mg/dL (101-178); Bilirubin, Total <0.1 mg/dL (0.0-1.2); Cholesterol, Total 138 mg/dL (100-199); GGT 27 IU/L (0-65); Glucose 183 mg/dL (70-99); Haptoglobin 206 mg/dL (32-363); NASH Score 0.77 (0.00-0.25); Steatosis Score 0.72 (0.00-0.40); Triglycerides 181 mg/dL (0-149)
== END 2024-08-11 23:59 | disposition home or self-care (01) ==
LOC: LAB 12:50
PROVIDERS: PCP Family Medicine; Visit Provider Internal Medicine Gastroenterology
DX: K64.9 Unspecified hemorrhoids (principal); E78.5 Hyperlipidemia, unspecified; K75.81 Nonalcoholic steatohepatitis (NASH); Z79.01 Long term (current) use of anticoagulants
CPT/HCPCS: 36415; 82172; 82247; 82465; 82947; 82977; 83010; 83883; 84450; 84460; 84478; 85610

== ENCOUNTER 2024-08-28 09:20 | Outpatient (CLI) | payer MEDICARE, OTHER, SELFPAY ==
[2024-08-28 13:07] LABS: INR 2.42 (0.9-1.1); Prothrombin Time 25.2 seconds (10.1-12.5)
== END 2024-08-28 23:59 | disposition home or self-care (01) ==
LOC: LAB 09:21
PROVIDERS: PCP Family Medicine; Visit Provider Family Medicine
DX: Z79.01 Long term (current) use of anticoagulants (principal)
CPT/HCPCS: 36415; 85610

== ENCOUNTER 2024-09-25 11:46 | Outpatient (CLI) | payer MEDICARE, OTHER, SELFPAY ==
--- OUTSIDE RECORDS SUMMARY | 2023-10-22 06:30 | XMS_ITS ---
Author Organization [facility] Address [address] [place] [id number] Care Team Providers Care Audit Consultant Name Role Phone Drew Stout Primary Care Provider Allergies No Known Allergies Results Component Value [...] Interpretation:satisfactory Performing Lab: Notes/Report: Test performed by [facility], [facility] [address] [place] [address] , [address], [place] [address] Sterling Allen MD, Material Cutter CLIA: [id number] Sodium 136 135-145 mmol/L Potassium 4.4 3.5-5.3 [...] Interpretation:Normal Performing Lab: Notes/Report: Test performed by [facility], [address] , [address] , [place] [address] Sterling Allen MD, Material Cutter CLIA: [id number] Cholesterol 128 <200 mg/dL Triglycerides 141 <150 [...] Interpretation:Normal Performing Lab: Notes/Report: Test performed by [facility] , [address], [place] [address] Sterling Allen MD, Material Cutter CLIA: [id number] PSA 0.45 <4.00 ng/mL Please note this is an ultrasensitive PSA assay with a lower limit of detection of 0.014 ng/mL. This test is performed by the [employer] ECLIA methodology. Values obtained with different assay methods or kits cannot be directly compared. P-TSH reflex to FT4 Reviewed date:10/25/2023 12:10:32 PM Interpretation:Normal Performing Lab: Notes/Report: Test performed by [facility] [address] , [place] [id number] Sterling Allen MD, Material Cutter CLIA: [id number] TSH reflex to FT4 1.74 0.43-5.25 mU/L P-Microalbumin/Creatinine, R andom Urine Sample Reviewed date:10/25/2023 12:10:32 PM Interpretation:satisfactory Performing Lab: Notes/Report: Test performed by [facility] , [address], [place] [address] Sterling Allen MD, Material Cutter CLIA: [id number] Albumin/Creatinine Ratio, Urine See Comment 0-30 ug/mg Unable to calculate Urine Albumin/Creatinine Ratio when urine creatinine or urine albumin fall outside established reportable range. Microalbumin, Urine, Random <0.3 Creatinine, Urine 93.0 P-Uric Acid Reviewed date:10/25/2023 12:10:33 PM Interpretation:Normal Performing Lab: Notes/Report: Test performed by [facility] , [address], [place] [address] Sterling Allen MD, Material Cutter CLIA: [id number] Uric Acid 4.5 3.4-8.0 mg/dL P-Vitamin D 25-Hydroxy Reviewed date:10/25/2023 12:10:33 PM Interpretation:Normal Performing Lab: Notes/Report: Test performed by [facility] [address] [place] [address] , [address], [place] [address] Sterling Allen MD, Material Cutter CLIA: [id number] Vitamin D 25-Hydroxy 50.8 30.0-100.0 ng/mL Interpretation [...] MG TAKE 1 TO 2 TABLETS ONCE DAILY for 90 days Active metFORMIN HCl ER 500 MG 2 tabs Orally Tw o times a day 10/19/2022 Active Vital Signs Blood pressure systolic 140 mm Hg 10/22/19 24 Blood pressure diastolic 76 mm Hg 024 Heart Rate 64 /min 10/22/2023 Height 73.50 in 10/22/2023 Weight 282.4 lbs 10/22/2023 BMI 36.75 kg/m2 10/22/2023 Encounters Encounter Location Date Provider Diagnosis [facility] [address] [facility] [address] [place], [place] [phone] 10/22/2023 Drew Stout Type 2 diabetes andres [...] E66.9 ; Prostate cancer screening Z12.5 and senior living current use of anticoagulant Z79.01 Assessments Encounter [...] Prostate cancer screening (ICD-10 - Z12.5) 10/22/2023 terminologist current us e of anticoagulant (ICD-10 - Z79.01) Plan Of Treatment Medication Medication Name Sig Start Date Stop Date Notes Rosuvastatin Calcium 20 MG 1 tab(s) orally once a day Vitamin D3 50 MCG (2000 UT) 2.5 cap(s) orally once a day [...] Follow Up: 6 Months, Reason: Provider Name:Drew mason, 10/20/2024 09:00:00 AM, [address], [address], [place], [phone], Progress Notes * Katlyn STATONDOB:09/1960 (64 yo M)Acc No.[id number]:10/22/2023 Progress Notes Patient: Katlyn CARBAJAL Provider: Alexandre Stout M.D. :1960 A ge:63 Y S ex:Male Date:10/22/2023 Address:[address], [id number] Subjective: * Chief Complaints: * 1 . [...] Diagno stic Procedure: R T Leg DVT- [facility] 01/17-03/2007, LT Leg Cellulitis- [facility] ER 09/14/2020. * Family History: F ather: alive 91 yrs, CABG x4, colon CA. M other: alive 84 yrs, valve repair. P aternal Grand Father: , [place]. P aternal Grand Mother: , alzheimer. M [...] C ardiology: General Appearance: p leasant, NAD. HEENT: u nremarkable. Heart sounds: R RR, normal S1, S2. Lungs: c lear, no rales or wheezes. Extremities: t race right leg edema, no left leg edema.? Peripheral pulses: 2 plus bilateral. ? Assessment: * Assessment: 1. T ype 2 [...] by Creatinine 68 >59 - mL/min/1.73m2 * Radha Burciagaira 10/25/2023 12:10:0 7 PM [...] igor Acid 4.5 3.4-8.0 - mg/dL * Melani Burciaga 10/25/2023 12:10:0 7 PM > Pt informed 6.?Vitamin D deficiency? Continue Vitamin D3 Capsule, 50 MCG (2000 UT), 2.5 cap(s), orally, once a day.?LAB: P-Vitamin D 25-Hydroxy (Collection Date & Time - 10/22/2023 09:52 AM)? Normal* Value Reference Range V itamin D 25-Hydroxy 50.8 30.0-100.0 - ng/mL * Melani Burciaga 10/25/2023 12:10:0 7 PM > Pt informed 7.?Obstructive sleep apnea syndrome? Refill CPAP SUPPLIES, DIRECTED, 1, Refills 0.??8.?Prostate cancer screening?LAB: P-PSA (Collection Date & Time - 10/22/2023 09:52 AM)?Normal* Value Reference Range P SA 0.45 <4.00 - ng/mL * Melani Burciaga 10/25/2023 12:10:0 7 PM > Pt informed 9.?senior living current use of anticoagulant?LAB: PT/INR (in house) [...] G 2211 Complex e/[place], [address] GLUCOSE TEST, 45730 GLYCATED HEMOGLOBIN TEST, Modifiers: QW , 28127 PROTHROMBIN TIME, Modifiers: QW * Follow Up: 6 Months * Billing Information: * Visit Code: 02259 Office Visit, Est Pt., Level 4. * Procedure Codes: G2211 Complex e/[place]. [address] GLUCOSE TEST. 01455 GLYCATED HEMOGLOBIN TEST. Modifiers: QW 74289 PROTHROMBIN TIME. Modifiers: QW * Electronic signature of Mora Stout MD on 09/25/2024 at 11:48 AM EDT Sign off status: Pending * Provider: Alexandre Stout M.D. Date: 0 10/22/2023 Generated for Andressa carter/Elías/Keenansmitting on: 0 09/25/2024 11:48 AM EDT History and Physical Notes * [...]
--- OUTSIDE RECORDS SUMMARY | 2024-04-21 05:15 | XMS_ITS ---
Author Organization [facility] Address [address] [place] [id number] Care Team Providers Care Rn Patient Services Name Role Phone Drew Stout Primary Care [...] Notes/Report: glycohemoglobin 7.1% 5 - 6.5 % REASON FOR VISIT 6 mth check up [...] 300 MG TAKE 1 TABLET ONCE D AILY for 90 Active metFORMIN HCl ER 500 MG TAKE 2 TABLETS T WICE A DAY Active Jardiance 25 MG TAKE 1 TABLET EVERY MORNING Active Triamterene-HCTZ 37.5-25 MG 1/2 tab(s) o rally once a day Active Fenofibrate 150 MG TAKE 1 CAPSULE ONCE DAILY for 90 Active Rosuvastatin Calcium 20 MG TAKE 1 TABLET ONCE DAILY for 90 Active Immunizations Vaccine Route Administration Date Status Comme candelaria Prevnar (PCV20) IM Intramuscular 04/21/2024 Administered Vital Signs Blood pressure systolic 142 mm Hg 04/21/19 25 Blood pressure diastolic 80 mm Hg 025 Heart Rate 70 /min 04/21/2024 Height 73.50 in 04/21/2024 Weight 286.6 lbs 04/21/2024 BMI 37.30 kg/m2 04/21/2024 Encounters Encounter Location Date Provider Diagnosis [facility] [address] [place], [place] [phone] 04/21/2024 Drew Stout Type 2 diabetes andres itus without complication, without long-term current use of insulin E11.9 ; Essential hypertension I10 ; History of DVT of lower extremity Z86.718 ; residential current use of anticoagulant Z79.01 ; Colon cancer screening Z12.11 and Encounter for immunization Z23 Assessments Encounter Date Diagnosis (ICD Code) Assessment Notes Treatment Notes Treatment Clinical Notes Section Notes 04/21/2024 Type 2 diabetes mellitus without complication, without long-term current use of insulin (ICD-10 - E11.9) 04/21/2024 Essential hypertension (ICD-10 - I10) 04/21/2024 History of DVT of lower extremity (ICD-10 - Z86.718) 04/21/2024 exterminator termite current use of anticoagulant (ICD-10 - Z79.01) [...] MG 1/2 tab(s) orally once a day Pending Test Test Name Order Date colonoscopy 04/21/2024 Next Appt Details Follow Up: 6 Months, Reason: Provider Name:Drew mason, 10/20/2024 09:00:00 AM, [address], [address], [place], [phone], Progress Notes * Katlyn STATONDOB:09/1960 (64 yo M)Acc No.[id number]:04/21/2024 Progress Notes Patient: Katlyn CARBAJAL Provider: Alexandre Stout M.D. :1960 A ge:63 Y S ex:Male Date:04/21/2024 Address:[address], [id number] Subjective: * Chief Complaints: * 1 . [...] Diagno stic Procedure: R T Leg DVT- [facility] 01/17-03/2007, LT Leg Cellulitis- [facility] ER 09/14/2020. * Family History: F ather: alive 92 yrs, CABG x4, colon CA. M other: alive 85 yrs, valve repair. P aternal Grand Father: , [place]. P aternal Grand Mother: , alzheimer. M [...] glucose 117 74 - 106 mg/dL * Melani Burciaga 04/21/2024 10:03:5 4 AM > , Provider reviewed results while patient in office. ?LAB: Glycohemoglobin A1c (in house) (Collection Date & Time - 04/21/2024)* Value Reference Range g lycohemoglobin 7.1% 5 - 6.5 % * Melani Burciaga 04/21/2024 10:07:0 3 AM > , Provider [...] month * i deal INR 2-3 * Melani Burciaga 04/21/2024 10:05:4 4 AM > , Provider reviewed results while patient in office.Drew Stout 04/21/2024 1:26:14 PM > 4.?Colon cancer screening?Imaging: colonoscopy* Malu Patel 04/21/2024 10:56 :56 AM > order faxed to Dr. Patterson * Immunizations: Prevnar (PCV20) : 0.5 mL (Route: Intramuscular) given by Melani Burciaga on Right Deltoid (Encounter for immunization) * Procedure Codes: G 2211 Complex e/[place], [address] CAPILLARY BLOOD DRAW, 64358 GLUCOSE TEST, 74579 GLYCATED HEMOGLOBIN TEST, Modifiers: QW , 73855 PROTHROMBIN TIME, Modifiers: QW * Follow Up: 6 Months * Billing Information: * Visit Code: 84489 Office Visit, Est Pt., Level 4. * Procedure Codes: G2211 Complex e/[place]. [address] CAPILLARY BLOOD DRAW. 48255 GLUCOSE TEST. 32326 GLYCATED HEMOGLOBIN TEST. Modifiers: QW 38868 PROTHROMBIN TIME. Modifiers: QW * Electronic signature of Mora Stout MD on 09/25/2024 at 11:48 AM EDT Sign off status: Pending * Provider: Alexandre Stout M.D. Date: 0 04/21/2024 Generated for Ericksoni ng/Oriong/eTransmitting on: 0 09/25/2024 11:48 AM EDT History [...]
--- OUTSIDE RECORDS SUMMARY | 2024-06-19 07:00 | XMS_ITS ---
Author Organization [facility] Address [address] [place] [phone] Care Team Providers Care Olive Knocker Name Role Phone Drew Stout Primary Care Provider Shae Dominguez Unavailable [phone] Allergies No Known Allergies Results Component Value Reference Range Notes Influenza Screen (in house) Reviewed date:06/19/2024 01:09:35 PM Interpretation:pos fluA Performing Lab: Notes/Report: pos fluA results pos fluA REASON FOR VISIT fever & cough Medications Medication SIG (Take, Route, Frequency, Duration) Notes Start Date End Date Status Triamterene-HCTZ 37.5-25 MG 1/2 tab(s) o rally once a day for 90 days Active Jardiance 25 MG TAKE 1 TABLET EVERY MORNING for 90 days Active metFORMIN HCl ER 500 MG TAKE 2 TABLETS T WICE A DAY for 90 days Active Scopolamine 1 MG/3DAYS 1 patch to skin b ehind the ear as needed Transdermal every 72 hours 04/28/2024 Active Pioglitazone HCl 30 MG TAKE 1 TABLET ONC E DAILY for 90 days Active Jantoven 5 MG TAKE 1 TO 2 TABLETS ONCE DAILY Active Vitamin D3 50 MCG (1999) 2.5 cap(s) o rally once a day Active Rosuvastatin Calcium 20 MG TAKE 1 TABLET ONCE DAILY for 90 Active Fenofibrate 150 MG TAKE 1 CAPSULE ONCE DAILY for 90 Active Allopurinol 300 MG TAKE 1 TABLET ONCE D AILY for 90 Active Tamiflu 75 MG 1 capsule Orally Twi ce a day for 5 day(s) 06/19/2024 Active CPAP SUPPLIES DIRECTED 02/10/2019 Act aaron Vital Signs Blood pressure systolic 130 mm Hg 06/20/19 25 Blood pressure diastolic 70 mm Hg 025 Heart Rate 103 /min 06/19/2024 Height 73.50 in 06/19/2024 Weight 281.2 lbs 06/19/2024 BMI 36.59 kg/m2 06/19/2024 Encounters Encounter Location Date Provider Diagnosis [facility] [address] [facility] [address] [facility] [address] [place] [phone] 06/19/2024 Shae Dominguez Influenza A J10.1 Assessments Encounter Date Diagnosis (ICD Code) Assessment Notes Treatment Notes Treatment Clinical Notes Section Notes 06/19/2024 Influenza A (ICD-10 - J10.1) fluids, rest, supportive measures for fever/symptom relief Plan Of Treatment Medication Medication Name Sig Start Date Stop Date Notes Tamiflu 75 MG 1 capsule Orally Twice a day for 5 day(s) Treatment Notes Assessment Notes Influenza A fluids, rest, suppor tive measures for fever/symptom relief Next Appt Details Follow Up: prn, Reason: Provider Name:Drew Zuniga ry, 10/20/2024 09:00:00 AM, [address] [facility] 36 [facility], [address], [place], [phone], Progress Notes * Katlyn STATONDOB:09/1960 (64 yo M)Acc No.[id number]:06/19/2024 Progress Notes Patient: Alexandre HEBERTBraxton Katlyn Almaraz Provider: DOMONIQUE Means :1960 A ge:64 Y S ex:Male Date:06/19/2024 Address:[address] [id number] Pcp:Drew Stout Subjective: * Chief Complaints: * 1 . Fever & cough. * HPI: E NT/respiratory: 64 year old male presents with c/o cough c onstant. c/o Fever P t sts that when he woke up this morning he had a temp of 101 and sts he has not taken any Tylenol since last night. c/o headache. c/o body aches. Denies : rhinorrhea. D enies : Short of Breath. D enies : smoking. Pt sts he started coughing on Wednesday and sts he had a low grade fever last night and this morning was 101. Pt sts today his cough is better does not feel like eating; drinking less. G astroenterology: c/o Nausea. * ROS: D ERMATOLOGY: no R bobby. n o H kirby. G ASTROENTEROLOGY: no N ausea. n o V omiting. U ROLOGY: no D ifficulty urinating. n o B lood in urine. * Medical History: T ype 2 Diabetes, DVT, Protein S deficiency, Hypertriglyceridemia, Hyperuricemia, Colon polyps, needs colonoscopy every 5 years, Testosterone deficiency, Vitamin D deficiency, sleep apnea, Dx: 2015, RE positive July 2019, Eye Exam 01/2022. * Surgical History: C olonoscopy 2008, 2013, 2018. * Hospitalization/Major Diagno stic Procedure: R T Leg DVT- [facility] 01/17-03/2007, LT Leg Cellulitis- [facility] ER 09/14/2020. * Family History: F ather: alive 92 yrs, CABG x4, colon CA. M other: alive 85 yrs, valve repair. P aternal Grand Father: , [place]. P aternal Grand Mother: , alzheimer. M [...] T aking CPAP SUPPLIES DIRECTED , Taking Vitamin D3 50 MCG (1999 UT) Capsule 2.5 cap(s) orally once a day , Taking Jantoven 5 MG Tablet TAKE 1 TO 2 TABLETS ONCE DAILY , Taking Allopurinol 300 MG Tablet TAKE 1 TABLET ONCE DAILY , Taking Fenofibrate 150 MG Capsule TAKE 1 CAPSULE ONCE DAILY , Taking Rosuvastatin Calcium 20 MG Tablet TAKE 1 TABLET ONCE DAILY , Taking Pioglitazone HCl 30 MG Tablet TAKE 1 TABLET ONCE DAILY , Taking metFORMIN HCl ER 500 MG Tablet Extended Release 24 Hour TAKE 2 TABLETS TWICE A DAY , Taking Jardiance 25 MG Tablet TAKE 1 TABLET EVERY MORNING , Taking Triamterene-HCTZ 37.5-25 MG Tablet 1/2 tab(s) orally once a day , Taking Scopolamine 1 MG/3DAYS Patch 72 Hour 1 patch to skin behind the ear as needed Transdermal every 72 hours , Medication List reviewed and reconciled with the patient * Allergies: N .K.D.A. Objective: * Vitals: W t:281.2, Temp:99.3, BP:130/70, HR:103, O2 Sat:97% on RA, Nurse:javier, Ht: 73.50, BMI:36.59. * Examination: E NT/Respiratory: General Appearance: well nourished and hydrated, NAD, alert, active. Eyes: sclera and conjunctiva clear. Ears: auditory canals normal bilaterally, tympanic membranes normal bilaterally. Nose : nares patent. Oral cavity : no erythema or exudate seen on pharynx.? Neck : supple, no cervical lymphadenopathy. Heart : RRR. Lungs: CTAB A&P. Skin : cheeks flushed. Assessment: * Assessment: 1. I markos A - J10.1 (Primary) Plan: * Treatment: * Labs: * L ab: Influenza Screen (in house) (Collection Date & Time - 06/19/2024) p os fluA Value Reference Range r esults pos fluA * Makenzie Shrestha 06/19/2024 11:09 :33 AM > Provider reviewed results while patient in office.Shae Dominguez 06/19/2024 1:09:37 PM > * Procedure Codes: G 2211 Complex e/[place], [address] [place] [address] Flu Test- Nasal Swab, Modifiers: QW , G8752 MOST RECENT SYSTOLIC BP < 140MM HG, G8754 MOST RECENT DIASTOLIC BP < 90MM HG * Follow Up: p rn * Billing Information: * Visit Code: 77487 Office Visit, Est Pt., Level 3. * Procedure Codes: G2211 Complex e/[place] [address] [place] [address] Flu Test- Nasal Swab. Modifiers: QW G8752 MOST RECENT SYSTOLIC BP < 140MM HG. G8754 MOST RECENT DIASTOLIC BP < 90MM HG. * Electronic signature of Sharlene mcclurelois Dominguez APRN on 09/25/2024 at 11:48 AM EDT Sign off status: Pending * Provider: DOMONIQUE Means Date: 0 06/19/2024 Generated for Andressa carter/Elías/Fred on: 0 09/25/2024 11:48 AM EDT History and Physical Notes * HPI (History of Present Illness) Category Sub-Category Detail Notes Category Not es ENT/respiratory Short of Breath Pt sts he started coughing on Wednesday and sts he had a low grade fever last night and this morning was 101. Pt sts today his cough is better does not feel like eating; drinking less cough constant Fever Pt sts that when he woke up this morning he had a temp of 101 and sts he has not taken any Tylenol since last night headache rhinorrhea smoking body aches Gastroenterology Nausea Examination Category Sub-Category Detail Notes Category Not es ENT/Respiratory Oral cavity : no erythema or exudate s een on pharynx Ears: auditory canals norm al bilaterally, tympanic membranes normal bilaterally Neck : supple, no cervical lymphadenopathy Heart : RRR Lungs: CTAB A&P General Appearance: well nourished and h ydrated, NAD, alert, active Nose : nares patent Skin : cheeks flushed Eyes: sclera and conjuncti va clear
--- OUTSIDE RECORDS SUMMARY | 2024-09-25 11:49 | XMS_ITS | Patient Health Record ---
Author Organization [facility] Address [address] [place] [id number] Care Team Providers Care Ball Shagger Name Role Phone Drew Stout Primary Care Provider Shae Dominguez Unavailable [phone] Allergies No Known Allergies Results Component Value [...] Interpretation:satisfactory Performing Lab: Notes/Report: Test performed by [facility], [facility] , [address], [place] [address] Sterling Allen MD, [place] CLIA: [id number] Sodium 136 135-145 mmol/L Potassium 4.4 3.5-5.3 [...] Interpretation:Normal Performing Lab: Notes/Report: Test performed by [facility], [address] , [address] , [place] [address] Sterling Allen MD, [place] CLIA: [id number] Cholesterol 128 <200 mg/dL Triglycerides 141 <150 [...] Interpretation:Normal Performing Lab: Notes/Report: Test performed by [facility] [address] , [address], [place] [address] Sterling Allen MD, [place]maker CLIA: [id number] PSA 0.45 <4.00 ng/mL Please note this is an ultrasensitive PSA assay with a lower limit of detection of 0.014 ng/mL. This test is performed by the [employer] ECLIA methodology. Values obtained with different assay methods or kits cannot be directly compared. P-TSH reflex to FT4 Reviewed date:10/25/2023 12:10:32 PM Interpretation:Normal Performing Lab: Notes/Report: Test performed by [facility] [address] , [address], [place] [address] Sterling Allen MD, [place] CLIA: [id number] TSH reflex to FT4 1.74 0.43-5.25 mU/L P-Microalbumin/Creatinine, R andom Urine Sample Reviewed date:10/25/2023 12:10:32 PM Interpretation:satisfactory Performing Lab: Notes/Report: Test performed by [facility] [address] , [address], [place] [address] Sterling Allen MD, Sparmaker CLIA: [id number] Albumin/Creatinine Ratio, Urine See Comment 0-30 ug/mg Unable to calculate Urine Albumin/Creatinine Ratio when urine creatinine or urine albumin fall outside established reportable range. Microalbumin, Urine, Random <0.3 Creatinine, Urine 93.0 P-Uric Acid Reviewed date:10/25/2023 12:10:33 PM Interpretation:Normal Performing Lab: Notes/Report: Test performed by [facility] [address] , [address], [place] [address] Sterling Allen MD, [place]maker CLIA: [id number] Uric Acid 4.5 3.4-8.0 mg/dL P-Vitamin D 25-Hydroxy Reviewed date:10/25/2023 12:10:33 PM Interpretation:Normal Performing Lab: Notes/Report: Test performed by [facility] [address] [place] [address] , [address], [place] [address] Sterling Allen MD, [place]maker CLIA: [id number] Vitamin D 25-Hydroxy 50.8 30.0-100.0 ng/mL Interpretation of Vitamin D 25 OH: < 20 ng/mL - Deficiency 20 - 29 ng/mL - Insufficiency 30 - 100 ng/mL - Sufficiency > 100 ng/mL - Super-therapeutic- toxicity may occur above this level. Clinical correlation required. PT/INR (in house) Reviewed date:04/21/2024 01:26:18 PM [...] Notes/Report: glycohemoglobin 7.1% 5 - 6.5 % Influenza Screen (in house) Reviewed date:06/19/2024 01:09:35 PM Interpretation:pos fluA Performing Lab: Notes/Report: pos fluA results pos fluA H-PT/INR Reviewed date:11/22/2023 03:18:24 PM Interpretation: Performing Lab: Notes/Report: PT 25.9 10.1-12.5 seconds INR 2.54 0.9-1.1 INDICATION INR RANGE Therapy for DVT, PE, Atrial Fib, 2.0-3.0 Prophylaxis for VTE. 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 H-PT/INR Reviewed date:07/07/2024 05:10:42 PM Interpretation: Performing Lab: Notes/Report: PT 26.1 10.1-12.5 seconds INR 2.56 0.9-1.1 INDICATION INR RANGE Therapy for DVT, PE, Atrial Fib, 2.0-3.0 Prophylaxis for VTE. 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 H-PT/INR Reviewed date:08/29/2024 03:13:22 PM Interpretation: Performing Lab: Notes/Report: PT 25.2 10.1-12.5 seconds INR 2.42 0.9-1.1 INDICATION INR RANGE Therapy for DVT, PE, Atrial Fib, 2.0-3.0 Prophylaxis for VTE. 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 H-PT/INR Reviewed date:12/31/2023 04:18:29 PM Interpretation: Performing Lab: Notes/Report: PT 24.7 10.1-12.5 seconds INR 2.41 0.9-1.1 INDICATION INR RANGE Therapy for DVT, PE, Atrial Fib, 2.0-3.0 Prophylaxis for VTE. 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 H-PT/INR Reviewed date:01/31/2024 11:44:32 AM Interpretation: Performing Lab: Notes/Report: PT 19.4 10.1-12.5 seconds INR 1.84 0.9-1.1 INDICATION INR RANGE Therapy for DVT, PE, Atrial Fib, 2.0-3.0 Prophylaxis for VTE. 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 H-PT/INR Reviewed date:03/16/2024 09:29:33 AM Interpretation: Performing Lab: Notes/Report: PT 19.5 10.1-12.5 seconds INR 1.85 0.9-1.1 INDICATION INR RANGE Therapy for DVT, PE, Atrial Fib, 2.0-3.0 Prophylaxis for VTE. 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 H-PT/INR Reviewed date:08/15/2024 03:54:08 PM Interpretation:1.0 Performing Lab: Notes/Report: PT 11.2 10.1-12.5 seconds INR 1.00 0.9-1.1 INDICATION INR RANGE Therapy for DVT, PE, Atrial Fib, 2.0-3.0 Prophylaxis for VTE. 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 H-PT/INR Reviewed date:06/05/2024 02:53:46 PM Interpretation: Performing Lab: Notes/Report: PT 18.3 9.2-12.1 seconds INR 1.76 0.9-1.1 INDICATION INR RANGE Therapy for DVT, PE, Atrial Fib, 2.0-3.0 Prophylaxis for VTE. 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 Medications Medication SIG (Take, Route, Frequency, Duration) Notes Start Date End Date Status Triamterene-HCTZ 37.5-25 MG 1/2 tab(s) o rally once a day for 90 days Active Jardiance 25 MG TAKE 1 TABLET EVERY MORNING for 90 days Active metFORMIN HCl ER 500 MG TAKE 2 TABLETS T WICE A DAY for 90 days Active Enoxaparin Sodium 100 MG/ML 100 mg Injec tion every 12 hrs for 7 days 07/24/2024 Active Tamiflu 75 MG 1 capsule Orally Twi ce a day for 5 day(s) 06/19/2024 Active Jantoven 5 MG TAKE 1 TO 2 TABLETS ONCE DAILY Active Vitamin D3 50 MCG (1999) 2.5 cap(s) o rally once a day Active CPAP SUPPLIES DIRECTED 02/10/2019 Act aaron Scopolamine 1 MG/3DAYS 1 patch to skin b ehind the ear as needed Transdermal every 72 hours 04/28/2024 Active Pioglitazone HCl 30 MG TAKE 1 TABLET ONC E DAILY for 90 days Active Rosuvastatin Calcium 20 MG TAKE 1 TABLET ONCE DAILY for 90 Active Fenofibrate 150 MG TAKE 1 CAPSULE ONCE DAILY for 90 Active Allopurinol 300 MG TAKE 1 TABLET ONCE D AILY for 90 Active Immunizations Vaccine Route Administration Date Status Comme nts Tetanus Tdap-Adacel (over 7yrs) IM Intramuscular 10/18/2006 Administered Tetanus Tdap-Adacel (over 7yrs) IM Intramuscular 04/20/2022 Administered Prevnar (PCV20) IM Intramuscular 04/21/2024 Administered Fluzone Quad (6months&older) IM Intramuscular 01/31/2018 Administered Given by MP Fluzone Quad (6months&older) IM Intramuscular 02/06/2019 Administered COVID 19 Darcie Unknown 09/05/2020 Administered Problems Problem Type SNOMED Code ICD Code Onset Dates Problem Status W/U Status Risk Notes Problem 43940513 Vitamin D defici ency (E55.9) Active confirmed Problem 01401009 Essential hypert ension (I10) Active confirmed Problem 761477249 Hypertriglycerid emia (E78.1) Active confirmed Problem 503674744 History of DVT o f lower extremity (Z86.718) Active confirmed PT/INR order 12/17/20 to 12/17/21 Problem 696024000 manager intermediate curren t use of anticoagulant (Z79.01) Active confirmed Problem 569518330 Sebaceous cyst (L72.3) Active confirm ed Problem 278107039 Mixed hyperlipid emia (E78.2) Active confirmed Problem 851331312 Non morbid obesi ty due to excess calories (E66.09) Active confirmed Problem 35289983 Obstructive slee p apnea syndrome (G47.33) Active confirmed Problem 776270025 Chronic gout wit hout tophus, unspecified cause, unspecified site (M1A.9XX0) Active confirmed Problem 94209547 Essential hypert ension, hypertension with unspecified goal (I10) Active confirmed Problem 710778518 Type 2 diabetes mellitus without complication, without long-term current use of insulin (E11.9) Active confirmed Problem 338487573 Non morbid obesi ty (E66.9) Active confirmed Vital Signs Heart Rate 103 /min 06/19/2024 Blood pressure diastolic 70 mm Hg 06/19/2024 Height 73.50 in 06/19/2024 Blood pressure systolic 130 mm Hg 06/19/2024 Weight 281.2 lbs 06/19/2024 BMI 36.59 kg/m2 06/19/2024 Encounters Encounter Location Date Provider Diagnosis [facility] [address] [place], [place] [id number] 10/22/2023 Drew Stout Type 2 diabetes andres [...] E66.9 ; Prostate cancer screening Z12.5 and [facility] current use of anticoagulant Z79.01 [facility] [address] [facility] [address] [place], [place] [id number] 04/21/2024 Drew Prospect Type 2 diabetes andres itus without complication, without long-term current use of insulin E11.9 ; Essential hypertension I10 ; History of DVT of lower extremity Z86.718 ; [facility]FP current use of anticoagulant Z79.01 ; Colon cancer screening Z12.11 and Encounter for immunization Z23 [facility] [address] [facility] [address] [place], [place] [id number] 06/19/2024 Shae Dominguez Influenza A J10.1 [facility] [address] [facility] [address] [place], [place] [id number] 10/22/2023 Drew Prospect Type 2 diabetes andres itus without complication, without long-term current use of insulin E11.9 ; Chronic gout without tophus, unspecified cause, unspecified site M1A.9XX0 ; Hypertriglyceridemia E78.1 ; Mixed hyperlipidemia E78.2 ; History of DVT of lower extremity Z86.718 and Essential hypertension, hypertension with unspecified goal I10 [facility] [address] [facility] [address] [place], [place] [id number] 11/22/2023 Drew Prospect [facility] [address] [facility] [address] [place], [place] [id number] 12/31/2023 Drew Prospect [facility] [address] [facility] [address] [place] [id number] 01/28/2024 Drew Prospect [facility] [address] [facility] [address] [place], [place] [id number] 03/15/2024 Drew Prospect [facility] [address] [facility] [address] [place], [place] [id number] 04/28/2024 Drew Prospect Type 2 diabetes andres itus without complication, without long-term current use of insulin E11.9 ; Essential hypertension I10 and History of DVT of lower extremity Z86.718 [facility] [address] [place], [place] [id number] 04/28/2024 Drew Prospect [facility] [address] [place], [place] [id number] 06/05/2024 Drew Prospect [facility] [address] [place], [place] [id number] 07/07/2024 Drew Prospect [facility] [address] [place], [place] [id number] 07/18/2024 Drew Prospect [facility] [address] [place], [place] [id number] 07/21/2024 Drew Prospect [facility] [address] [place], [place] [id number] 08/14/2024 Drew Prospect [facility] [address] [place], [place] [id number] 08/29/2024 Drew Prospect Assessments Encounter Date Diagnosis (ICD Code) Assessment Notes Treatment Notes Treatment Clinical Notes Section Notes 10/22/2023 Essential hypertensi on, hypertension with unspecified goal (ICD-10 - I10) 10/22/2023 Type 2 diabetes andres itus without complication, without long-term current use of insulin (ICD-10 - E11.9) 10/22/2023 Type 2 diabetes andres itus without complication, without long-term current use of insulin (ICD-10 - E11.9) 04/21/2024 Essential hypertensi on (ICD-10 - I10) 04/21/2024 Type 2 diabetes andres itus without complication, without long-term current use of insulin (ICD-10 - E11.9) 04/28/2024 Type 2 diabetes andres itus without complication, without long-term current use of insulin (ICD-10 - E11.9) 06/19/2024 Influenza A (ICD-10 - J10.1) fluids, rest, supportive measures for fever/symptom relief 04/28/2024 Essential hypertensi on (ICD-10 - I10) 10/22/2023 Chronic gout without tophus, unspecified cause, unspecified site (ICD-10 - M1A.9XX0) 04/21/2024 History of DVT of lo wer extremity (ICD-10 - Z86.718) 10/22/2023 Mixed hyperlipidemia (ICD-10 - E78.2) 10/22/2023 Hypertriglyceridemia (ICD-10 - E78.1) 10/22/2023 Hypertriglyceridemia (ICD-10 - E78.1) 04/21/2024 manager intermediate current us e of anticoagulant (ICD-10 - Z79.01) 04/28/2024 History of DVT of lo wer extremity (ICD-10 - Z86.718) 04/21/2024 Colon cancer screeni ng (ICD-10 - Z12.11) 10/22/2023 Chronic gout without tophus, unspecified cause, unspecified site (ICD-10 - M1A.9XX0) 10/22/2023 Mixed hyperlipidemia (ICD-10 - E78.2) 10/22/2023 Vitamin D deficiency (ICD-10 - E55.9) 10/22/2023 History of DVT of lo wer extremity (ICD-10 - Z86.718) 04/21/2024 Encounter for immunization (ICD-10 - Z23) 10/22/2023 Essential hypertensi on, hypertension with unspecified goal (ICD-10 - I10) 10/22/2023 Obstructive sleep ap marco a syndrome (ICD-10 - G47.33) 10/22/2023 Non morbid obesity (ICD-10 - E66.9) 10/22/2023 Prostate cancer screening (ICD-10 - Z12.5) 10/22/2023 [facility]FP current us e of anticoagulant (ICD-10 - Z79.01) Plan Of Treatment Pending Test Test Name Order Date colonoscopy 04/21/2024 Next Appt Details Provider Name:Drew Zuniga ry, 10/20/2024 09:00:00 AM, [address], [address], [place], [id number], Insurance Providers Payer Name Payer Address Payer Phone Subscriber Number Group Number Insured Name Patient Relationship to Insured Coverage Start Date Coverage End Date MEDICARE PART B [address] [place] [id number] Bradley Katlyn Self - patient is the insured [email or web address] [address] [address] [place] [id number] Collette Statonll Self - patient is the insured Medical (General) History Medical History History ICD Code Type 2 Diabetes DVT, Protein S deficiency Hypertriglyceridemia Hyperuricemia Colon polyps, needs colonoscopy every 5 years Testosterone deficiency Vitamin D deficiency sleep apnea, Dx: 2015 RE positive July 2019 Eye Exam 01/2022 Surgical History Surgery Date(Month/Year) Colonoscopy 2008, 2013, 2018 Hospitalization History Reason Date(Month/Year) RT Leg DVT- [facility] 01/17-03/2007 LT Leg Cellulitis- [facility] ER 09/14/2020
[2024-09-25 12:40] LABS: INR 2.96 (0.9-1.1); Prothrombin Time 30.3 seconds (10.1-12.5)
== END 2024-09-25 23:59 | disposition home or self-care (01) ==
LOC: LAB 11:46
PROVIDERS: PCP Family Medicine; Visit Provider Family Medicine
DX: Z79.01 Long term (current) use of anticoagulants (principal)
CPT/HCPCS: 36415; 85610

== ENCOUNTER 2024-11-16 10:39 | Outpatient (CLI) | payer MEDICARE, OTHER, SELFPAY ==
--- OUTSIDE RECORDS SUMMARY | 2024-04-21 05:15 | XMS_ITS ---
Author Organization [facility] Address [address] [place] [phone] Care Team Providers Care Car Washer Name Role Phone Drew Stout Primary Care [...] 04/21/2024 Encounters Encounter Location Date Provider Diagnosis [facility] [address] [phone] 04/21/2024 Drew Stout Type 2 diabetes andres itus without complication, without long-term current use of insulin E11.9 ; Essential hypertension I10 ; History of DVT of lower extremity Z86.718 ; senior living current use of anticoagulant Z79.01 ; Colon cancer screening Z12.11 and Encounter for immunization Z23 Assessments Encounter Date Diagnosis (ICD Code) Assessment Notes Treatment Notes Treatment Clinical Notes Section Notes 04/21/2024 Type 2 diabetes mellitus without complication, without long-term current use of insulin (ICD-10 - E11.9) 04/21/2024 Essential hypertension (ICD-10 - I10) 04/21/2024 History of DVT of lower extremity (ICD-10 - Z86.718) 04/21/2024 senior living current use of anticoagulant (ICD-10 - Z79.01) [...] [address], [place], [phone], Progress Notes * Katlyn STATONDOB:09/1960 (64 yo M)Acc No.[id number]:04/21/2024 Progress Notes Patient: Katlyn CARBAJAL Provider: Alexandre Stout M.D. :1960 A ge:63 Y S ex:Male Date:04/21/2024 Address:[place], [id number] Subjective: * Chief Complaints: * 1 . [...] Diagno stic Procedure: R T Leg DVT- [facility] 01/17-03/2007, LT Leg Cellulitis- [facility] ER 09/14/2020. * Family History: F ather: alive 92 yrs, CABG x4, colon CA. M other: alive 85 yrs, valve repair. P aternal Grand Father: , [place]. P aternal Grand Mother: , alzheimer. M [...] screening?Imaging: colonoscopy (Performed Date - 08/03/2024)?Several polyps* aMlu Patel 04/21/2024 10:56 :56 AM > order faxed to Drew [facility] 09/26/2024 10:31:37 PM EDT > * Immunizations: Prevnar (PCV20) : 0.5 mL (Route: Intramuscular) given by Melani Burciaga on Right Deltoid (Encounter for immunization) * Procedure Codes: G 2211 Complex e/[place], [address] CAPILLARY BLOOD DRAW, 29355 GLUCOSE TEST, 10750 GLYCATED HEMOGLOBIN TEST, Modifiers: QW , 01746 PROTHROMBIN TIME, Modifiers: QW * Follow Up: 6 Months * Images: Billing Information: * Visit Code: 40505 Office Visit, Est Pt., Level 4. * Procedure Codes: G2211 Complex e/[place]. [address] CAPILLARY BLOOD DRAW. 99978 GLUCOSE TEST. 10469 GLYCATED HEMOGLOBIN TEST. Modifiers: QW 74313 PROTHROMBIN TIME. Modifiers: QW * Electronic signature of Mora Stout MD on 11/16/2024 at 10:48 AM EDT Sign off status: Pending * Provider: Alexandre Stout M.D. Date: 0 04/21/2024 Generated for Andressa carter/Elías/Keenansmitting on: 0 11/16/2024 10:48 AM EDT History and Physical Notes * [...]
--- OUTSIDE RECORDS SUMMARY | 2024-06-19 07:00 | XMS_ITS ---
Author Organization [facility] Address [address] [place] [phone] Care Team Providers Care Cloth Cutting Inspector Name Role Phone Drew Stout Primary Care Provider Shae Dominguez Unavailable [phone] Allergies No Known Allergies Results Component Value Reference Range Notes Influenza Screen (in house) Reviewed date:06/19/2024 01:09:35 PM Interpretation:pos fluA Performing Lab: Notes/Report: pos fluA results pos fluA REASON FOR VISIT fever & cough Medications Medication SIG (Take, Route, Frequency, Duration) Notes Start Date End Date Status Triamterene-HCTZ 37.5-25 MG 1/2 tab(s) o rally once a day; Duration: 90 days Active Jardiance 25 MG TAKE 1 TABLET EVERY MORNING; Duration: 90 days Active metFORMIN HCl ER 500 MG TAKE 2 TABLETS T WICE A DAY; Duration: 90 days Active Scopolamine 1 MG/3DAYS 1 patch to skin b ehind the ear as needed Transdermal every 72 hours 04/28/2024 Active Pioglitazone HCl 30 MG TAKE 1 TABLET ONC E DAILY; Duration: 90 days Active Jantoven 5 MG TAKE 1 TO 2 TABLETS ONCE DAILY Active Vitamin D3 50 MCG (1999) 2.5 cap(s) o rally once a day Active Rosuvastatin Calcium 20 MG TAKE 1 TABLET ONCE DAILY; Duration: 90 Active Fenofibrate 150 MG TAKE 1 CAPSULE ONCE DAILY; Duration: 90 Active Allopurinol 300 MG TAKE 1 TABLET ONCE D AILY; Duration: 90 Active Tamiflu 75 MG 1 capsule Orally Twi ce a day; Duration: 5 day(s) 06/19/2024 Active CPAP SUPPLIES DIRECTED 02/10/2019 Act aaron Vital Signs Blood pressure systolic 130 mm Hg 06/20/19 25 Blood pressure diastolic 70 mm Hg 025 Heart Rate 103 /min 06/19/2024 Height 73.50 in 06/19/2024 Weight 281.2 lbs 06/19/2024 BMI 36.59 kg/m2 06/19/2024 Encounters Encounter Location Date Provider Diagnosis [facility] [address] [facility] 36 [facility] [address] [place], [place] [phone] 06/19/2024 Shae Dominguez Influenza A J10.1 Assessments Encounter Date Diagnosis (ICD Code) Assessment Notes Treatment Notes Treatment Clinical Notes Section Notes 06/19/2024 Influenza A (ICD-10 - J10.1) fluids, rest, supportive measures for fever/symptom relief Plan Of Treatment Medication Medication Name Sig Start Date Stop Date Notes Tamiflu 75 MG 1 capsule Orally Twi ce a day; Duration: 5 day(s) 06/19/2024 Treatment Notes Assessment Notes Influenza A fluids, rest, suppor tive measures for fever/symptom relief Next Appt Details Follow Up: prn, Reason: Provider Name:Drew mason, 04/23/2025 10:00:00 AM, [address] [facility] 36 [facility], [address], [place], [place], [phone], Progress Notes * Katlyn STATONDOB:09/1960 (64 yo M)Acc No.[id number]:06/19/2024 Progress Notes Patient: Eagle CARBAJALrachana Almaraz Provider: DOMONIQUE Means :1960 A ge:64 Y S ex:Male Date:06/19/2024 Address:[address] [id number] Pcp:Drew Stout Subjective: * Chief Complaints: * [...] stic Procedure: R T Leg DVT- [facility] 01/17-03/2007, LT Leg Cellulitis- [facility] ER 09/14/2020. * Family History: F ather: alive 92 yrs, CABG x4, colon CA. M other: alive 85 yrs, valve repair. P aternal Grand Father: , [place]. P aternal Grand Mother: , alzheimer. M [...] DIRECTED , Taking Vitamin D3 50 MCG (2000 UT) Capsule 2.5 cap(s) orally once a [...] well nourished and hydrated, NAD, alert, active. E yes: sclera and conjunctiva clear. E ars: auditory canals normal bilaterally, tympanic membranes normal bilaterally. N ose : nares patent. O ral cavity : no erythema or exudate seen on pharynx. N reynaldo : supple, no cervical lymphadenopathy. H eart : RRR. L ungs: CTAB A&P. S kin : cheeks flushed. ? Assessment: * Assessment: 1. I markos A [...] G 2211 Complex e/[place], [address] [place], [address] Flu Test- Nasal Swab, Modifiers: QW , G8752 MOST RECENT SYSTOLIC BP < 140MM HG, G8754 MOST RECENT DIASTOLIC BP < 90MM HG * Follow Up: p rn * Images: Billing Information: * Visit Code: 27156 Office Visit, Est Pt., Level 3. * Procedure Codes: G2211 Complex e/[place]. [address] [place] [address] Flu Test- Nasal Swab. Modifiers: QW G8752 MOST RECENT SYSTOLIC BP < 140MM HG. G8754 MOST RECENT DIASTOLIC BP < 90MM HG. * Electronic signature of Sharlene Dominguez APRN on 11/16/2024 at 10:48 AM EDT Sign off status: Pending * Provider: DOMONIQUE Means Date: 0 06/19/2024 Generated for Andressa carter/Elías/eTransmitting on: 0 11/16/2024 10:48 AM EDT History [...]
--- OUTSIDE RECORDS SUMMARY | 2024-10-20 05:00 | XMS_ITS ---
Author Organization [facility] Address [address] [place] [id number] Care Team Providers Care Security Rover Name Role Phone Drew Stout Primary Care Provider Allergies No Known Allergies Results Component Value Reference Range Notes PT/INR (in house) Reviewed date:10/20/2024 10:45:54 AM Interpretation: Performing Lab: Notes/Report: INR 4.1 current dose 10 mg Daily new dose 7.5 mg daily next check 3 weeks at [facility] ideal INR 2-3 Glucose (In-House) Reviewed date:10/20/2024 10:45:54 AM Interpretation:107 Performing Lab: Notes/Report: 107 blood glucose 107 74 - 106 mg/dL Glycohemoglobin A1c (in hous e) Reviewed date:10/20/2024 10:45:54 AM Interpretation:7.2 Performing Lab: Notes/Report: 7.2 glycohemoglobin 7.2% 5 - 6.5 % P-Comprehensive Metabolic Pa codie (CMP) Reviewed date:10/23/2024 12:47:55 PM Interpretation:gluc 118 Performing Lab: Notes/Report: Test performed by [facility], [facility] [address] [place] [address] , [address], [place] [address] Sterling Allen MD, Test And Research Reactor Operator CLIA: [id number] Sodium 139 135-145 mmol/L Potassium 4.4 3.5-5.3 mmol/L Chloride 106 97-108 mmol/L CO2 23 20-32 mmol/L Glucose 118 65-99 mg/dL BUN 23 8-23 mg/dL Creatinine 1.02 0.70-1.30 mg/dL Calcium 9.0 8.6-10.4 mg/dL eGFR by Creatinine 81 >59 mL/min/1.73m2 Protein 7.1 6.0-8.3 g/dL Albumin 4.3 3.5-5.3 g/dL Alkaline Phosphatase 51 40-129 IU/L ALT (SGPT) 19 <5-55 IU/L AST (SGOT) 18 <5-46 IU/L Bilirubin, Total 0.5 <0.2-1.2 mg/dL A/G Ratio 1.5 1.1-2.5 P-Lipid Panel Reviewed date:10/23/2024 12:47:55 PM Interpretation:Normal Performing Lab: Notes/Report: Test performed by [facility], [address] , [address], [place] [address] Sterling Allen MD, Test And Research Reactor Operator CLIA: [id number] Cholesterol 119 <200 mg/dL Triglycerides 127 <150 mg/dL HDL Cholesterol 44 >39 mg/dL Cholesterol / HDL Ratio 2.70 0.00-4.99 Ratio Non-HDL Cholesterol 75 <130 mg/dL LDL Cholesterol (Calculation) 50 <130 mg/dL LDL Cholesterol Levels* Less than 100 mg/dL Optimal 100 to 129 mg/dL Near Optimal/ Above Optimal 130 to 159 mg/dL Borderline High 160 to 189 mg/dL High 190 mg/dL and above Very High * Categories as recommended by the 2004 ATPIII guidelines LDL/HDL Ratio 1.1 <3.3 Ratio LDL Cholesterol Patient History Test Date: 10/22/2023 LDL Results: 59 Units: mg/dL % Change: - Test Date: 10/20/2024 LDL Results: 50 Units: mg/dL % Change: -15% P-PSA Reviewed date:10/23/2024 12:47:55 PM Interpretation:Normal Performing Lab: Notes/Report: Test performed by [facility] [address] [place] [address] , [place] [address] Sterling Allen MD, Test And Research Reactor Operator CLIA: [id number] PSA 0.54 <4.00 ng/mL Please note this is an ultrasensitive PSA assay with a lower limit of detection of 0.014 ng/mL. This test is performed by the [employer] ECLIA methodology. Values obtained with different assay methods or kits cannot be directly compared. P-TSH reflex to FT4 Reviewed date:10/23/2024 12:47:55 PM Interpretation:Normal Performing Lab: Notes/Report: Test performed by [facility] [address] [place] [address] , [place] [address] Sterling Allen MD, Test And Research Reactor Operator CLIA: [id number] TSH reflex to FT4 1.49 0.43-5.25 mU/L P-Microalbumin/Creatinine, R andom Urine Sample Reviewed date:10/23/2024 12:47:55 PM Interpretation:Normal Performing Lab: Notes/Report: Test performed by [facility] [address] [place] [address] , [address], [place] [address] Sterling Allen MD, Test And Research Reactor Operator CLIA: [id number] Albumin/Creatinine Ratio, Urine <4.30 0-30 ug/mg Microalbumin, Urine, Random <0.3 Creatinine, Urine 69.7 P-Uric Acid Reviewed date:10/23/2024 12:47:55 PM Interpretation:Normal Performing Lab: Notes/Report: Test performed by [facility] [address] [place] [address] [address]Dny [address] , [place] [address] Sterling Allen MD, Test And Research Reactor Operator CLIA: [id number] Uric Acid 4.2 3.4-8.0 mg/dL P-Vitamin D 25-Hydroxy Reviewed date:10/23/2024 12:47:55 PM Interpretation:42.6 Performing Lab: Notes/Report: Test performed by [facility] [address] [place] [address] Dany Mackay , [place] [address] Sterling Allen MD, Test And Research Reactor Operator CLIA: [id number] Vitamin D 25-Hydroxy 42.6 30.0-100.0 ng/mL Interpretation of Vitamin D 25 OH: < 20 ng/mL - Deficiency 20 - 29 ng/mL - Insufficiency 30 - 100 ng/mL - Sufficiency > 100 ng/mL - Super-therapeutic- toxicity may occur above this level. Clinical correlation required. REASON FOR VISIT 6 months Medications Medication SIG (Take, Route, Frequency, Duration) Notes Start Date End Date Status metFORMIN HCl ER 500 MG 2 tablets orally twice a day; Duration: 90 days Active Rosuvastatin Calcium 20 MG 1 tablet Oral ly Once a day; Duration: 90 days Active Pioglitazone HCl 30 MG 1 tablet Orally O nce a day; Duration: 90 days Active Enoxaparin Sodium 100 MG/ML 100 mg Injec tion every 12 hrs; Duration: 7 days 07/24/2024 Active Vitamin D3 50 MCG (1999) 2.5 cap(s) o rally once a day Active CPAP SUPPLIES DIRECTED 02/10/2019 Act aaron Triamterene-HCTZ 37.5-25 MG 1/2 tab(s) o rally once a day; Duration: 90 days Active Jantoven 5 MG TAKE 1 TO 2 TABLETS ONCE DAILY Active Fenofibrate 150 MG 1 capsule with food Orally Once a day; Duration: 90 days Active Jardiance 25 MG 1 tablet Orally Once a day; Duration: 90 days Active Allopurinol 300 MG 1 tablet Orally Once a day; Duration: 90 days Active Problems Problem Type SNOMED Code ICD Code Onset Dates Problem Status W/U Status Risk Notes Problem Type 2 diabetes mellitus with other specified complication, unspecified whether detention insulin use (E11.69) Active confirmed Vital Signs Blood pressure systolic 140 mm Hg 10/21/19 25 Blood pressure diastolic 80 mm Hg 025 Heart Rate 69 /min 10/20/2024 Height 73.50 in 10/20/2024 Weight 278.2 lbs 10/20/2024 BMI 36.2 kg/m2 10/20/2024 Encounters Encounter Location Date Provider Diagnosis [facility] [address] [facility] [address] [place], [place] [id number] 10/20/2024 Drew Stout Type 2 diabetes andres itus without complication, without long-term current use of insulin E11.9 ; Essential hypertension, hypertension with unspecified goal I10 ; Mixed hyperlipidemia E78.2 ; Hypertriglyceridemia E78.1 ; Chronic gout without tophus, unspecified cause, unspecified site M1A.9XX0 ; Vitamin D deficiency E55.9 ; Prostate cancer screening Z12.5 ; History of DVT of lower extremity Z86.718 ; 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 ; Non morbid obesity E66.9 and Type 2 diabetes mellitus with other specified complication, unspecified whether intermediate frame tender insulin use E11.69 Assessments Encounter Date Diagnosis (ICD Code) Assessment Notes Treatment Notes Treatment Clinical Notes Section Notes 10/20/2024 Type 2 diabetes andres itus without complication, without long-term current use of insulin (ICD-10 - E11.9) 10/20/2024 Essential hypertensi on, hypertension with unspecified goal (ICD-10 - I10) 10/20/2024 Mixed hyperlipidemia (ICD-10 - E78.2) 10/20/2024 Hypertriglyceridemia (ICD-10 - E78.1) 10/20/2024 Chronic gout without tophus, unspecified cause, unspecified site (ICD-10 - M1A.9XX0) 10/20/2024 Vitamin D deficiency (ICD-10 - E55.9) 10/20/2024 Prostate cancer screening (ICD-10 - Z12.5) 10/20/2024 History of DVT of lo wer extremity (ICD-10 - Z86.718) 10/20/2024 shelter current us e of anticoagulant (ICD-10 - Z79.01) 10/20/2024 Non morbid obesity (ICD-10 - E66.9) 10/20/2024 Type 2 diabetes andres itus with other specified complication, unspecified whether intermediate frame tender insulin use (ICD-10 - E11.69) Plan Of Treatment Next Appt Details Follow Up: 6 Months, Reason: Provider Name:Drew Zuniga ry, 04/23/2025 10:00:00 AM, [address], [address], [place], [place], [id number], Progress Notes * Katlyn STATON SungDOB:09/1960 (64 yo M)Acc No.[id number]:10/20/2024 Progress Notes Patient: Katlyn CARBAJAL Provider: Alexandre Stout M.D. :1960 A ge:64 Y S ex:Male Date:10/20/2024 Address:[facility], [id number] Subjective: * Chief Complaints: * 1 . 6 months. * HPI: C ardiology: 64 year old male presents with c/o Blood Pressure Elevated P t here for 6 mo f/u on hypertension. Pt states he is doing well and does not have any concerns.? c/o Hyperlipidemia P t is fasting today. E ndocrinology: c/o Recent Blood Sugars P t here to f/u on DM 2. * ROS: D ERMATOLOGY: no R bobby. [...] Procedure: R T Leg DVT- [facility] 01/17-03/2007, LT Leg Cellulitis- [facility] ER 09/14/2020. * Family History: F [...] . * Social History: C URRENT TOBACCO USE: No . C affeine: yes, frequency:. Exercise: no. Home smoke detector use: no. Marital Status: . New since last visit: none. Past smoking status: no. Occup. exposure: none. Recreational drug use: no. Alcohol: no. Sexually active: yes. Travel ouside [place]: no. * Medications: T akin CPAP SUPPLIES DIRECTED , Taking Vitamin D3 50 MCG (1999 [place]) Capsule 2.5 cap(s) orally once a day , Taking Jantoven 5 MG Tablet TAKE 1 TO 2 TABLETS ONCE DAILY , Taking Triamterene-HCTZ 37.5-25 MG Tablet 1/2 tab(s) orally once a day , Taking Enoxaparin Sodium 100 MG/ML Solution Prefilled Syringe 100 mg Injection every 12 hrs , Taking Pioglitazone HCl 30 MG Tablet 1 tablet Orally Once a day , Taking Rosuvastatin Calcium 20 MG Tablet 1 tablet Orally Once a day , Taking metFORMIN HCl ER 500 MG Tablet Extended Release 24 Hour 2 tablets orally twice a day , Taking Allopurinol 300 MG Tablet 1 tablet Orally Once a day , Taking Jardiance 25 MG Tablet 1 tablet Orally Once a day , Taking Fenofibrate 150 MG Capsule 1 capsule with food Orally Once a day , Discontinued Scopolamine 1 MG/3DAYS Patch 72 Hour 1 patch to skin behind the ear as needed Transdermal every 72 hours , Discontinued Tamiflu 75 MG Capsule 1 capsule Orally Twice a day , Medication List reviewed and reconciled with the patient * Allergies: N .K.D.A. Objective: * Vitals: W t: 278.2, Temp: 97.8, BP: 140/80, HR: 69, Nurse: vicki, Ht: 73.50, BMI:36.2. * Examination: C ardiology: General Appearance: p [...] itamin D deficiency - E55.9 7 . P rostate cancer screening - Z12.5 8 . H istory of DVT of lower extremity - Z86.718 9 . L anibal term current use of anticoagulant - Z79.01 1 0. N on morbid obesity - E66.9 1 1. T ype 2 diabetes mellitus with other specified complication, unspecified whether detention insulin use - E11.69 Plan: * Treatment: Value Reference Range A /G Ratio 1.5 1.1-2.5 - * A lbumin 4.3 3.5-5.3 - g/dL * A lkaline Phosphatase 51 40-129 - IU/L * A LT (SGPT) 19 <5-55 - IU/L * A ST (SGOT) 18 <5-46 - IU/L * B ilirubin, Total 0.5 <0.2-1.2 - mg/dL * B UN 23 8-23 - mg/dL * C alcium 9.0 8.6-10.4 - mg/dL * C hloride 106 97-108 - mmol/L * C O2 23 20-32 - mmol/L * C reatinine 1.02 0.70-1.30 - mg/dL * G lucose 118 H 65-99 - mg/dL * P otassium 4.4 3.5-5.3 - mmol/L * S odium 139 135-145 - mmol/L * P rotein 7.1 6.0-8.3 - g/dL * e GFR by Creatinine 81 >59 - mL/min/1.73m2 * AmandaMalu greco 10/23/2024 12:4 7:46 PM EDT > See phone encounter ?LAB: P-TSH reflex to FT4 (Collection Date & Time - 10/20/2024 08:30 AM)? Normal* Value Reference Range T SH reflex to FT4 1.49 0.43-5.25 - mU/L * Malu Patel 10/23/2024 12:4 7:46 PM EDT > See phone encounter ?LAB: P-Microalbumin/Creatinine, Random Urine Sample (Collection Date & Time - 10/20/2024 08:30 AM)?Normal* Value Reference Range A lbumin/Creatinine Ratio, Urine <4.30 0-30 - ug /mg * C reatinine, Urine 69.7 - mg/dL * M icroalbumin, Urine, Random <0.3 - mg/dL * Malu Patel 10/23/2024 12:4 7:46 PM EDT > See phone encounter ?LAB: Glucose (In-House) (Collection Date & Time - 10/20/2024)?107* Value Reference Range b lood glucose 107 74 - 106 mg/dL * Melani Burciaga 10/20/2024 09:31: 39 AM EDT > Provider reviewed results while patient in office. ?LAB: Glycohemoglobin A1c (in house) (Collection Date & Time - 10/20/2024)? 7.2* Value Reference Range g lycohemoglobin 7.2% 5 - 6.5 % * Melani Bucriaga 10/20/2024 09:34: 20 AM EDT > Provider reviewed results while patient in office. 2.?Essential hypertension, hypertension with unspecified goal?LAB: P-Comprehensive Metabolic Panel (CMP) (Collection Date & Time - 10/20/2024 08:30 AM)?gluc 118* Value Reference Range A /G Ratio 1.5 1.1-2.5 - * A lbumin 4.3 3.5-5.3 - g/dL * A lkaline Phosphatase 51 40-129 - IU/L * A LT (SGPT) 19 <5-55 - IU/L * A ST (SGOT) 18 <5-46 - IU/L * B ilirubin, Total 0.5 <0.2-1.2 - mg/dL * B UN 23 8-23 - mg/dL * C alcium 9.0 8.6-10.4 - mg/dL * C hloride 106 97-108 - mmol/L * C O2 23 20-32 - mmol/L * C reatinine 1.02 0.70-1.30 - mg/dL * G lucose 118 H 65-99 - mg/dL * P otassium 4.4 3.5-5.3 - mmol/L * S odium 139 135-145 - mmol/L * P rotein 7.1 6.0-8.3 - g/dL * e GFR by Creatinine 81 >59 - mL/min/1.73m2 * Malu Patel 10/23/2024 12:4 7:46 PM EDT > See phone encounter 3.?Mixed hyperlipidemia?LAB: P-Comprehensive Metabolic Panel (CMP) (Collection Date & Time - 10/20/2024 08:30 AM)?gluc 118* Value Reference Range A /G Ratio 1.5 1.1-2.5 - * A lbumin 4.3 3.5-5.3 - g/dL * A lkaline Phosphatase 51 40-129 - IU/L * A LT (SGPT) 19 <5-55 - IU/L * A ST (SGOT) 18 <5-46 - IU/L * B ilirubin, Total 0.5 <0.2-1.2 - mg/dL * B UN 23 8-23 - mg/dL * C alcium 9.0 8.6-10.4 - mg/dL * C hloride 106 97-108 - mmol/L * C O2 23 20-32 - mmol/L * C reatinine 1.02 0.70-1.30 - mg/dL * G lucose 118 H 65-99 - mg/dL * P otassium 4.4 3.5-5.3 - mmol/L * S odium 139 135-145 - mmol/L * P rotein 7.1 6.0-8.3 - g/dL * e GFR by Creatinine 81 >59 - mL/min/1.73m2 * Malu Patel 10/23/2024 12:4 7:46 PM EDT > See phone encounter ?LAB: P-Lipid Panel (Collection Date & Time - 10/20/2024 08:30 AM)?Normal* Value Reference Range C holesterol / HDL Ratio 2.70 0.00-4.99 - Ratio * C holesterol 119 <200 - mg/dL * H DL Cholesterol 44 >39 - mg/dL * L DL Cholesterol (Calculation) 50 <130 - mg/d L * L DL/HDL Ratio 1.1 <3.3 - Ratio * N on-HDL Cholesterol 75 <130 - mg/dL * T riglycerides 127 <150 - mg/dL * Amanda Malu 10/23/2024 12:4 7:46 PM EDT > See phone encounter 4.?Chronic gout without tophus, unspecified cause, unspecified site?LAB: P-Uric Acid (Collection Date & Time - 10/20/2024 08:30 AM)?Normal* Value Reference Range U igor Acid 4.2 3.4-8.0 - mg/dL * Amanda Malu 10/23/2024 12:4 7:46 PM EDT > See phone encounter 5.?Vitamin D deficiency?LAB: P-Vitamin D 25-Hydroxy (Collection Date & Time - 10/20/2024 08:30 AM)? 42.6* Value Reference Range V itamin D 25-Hydroxy 42.6 30.0-100.0 - ng/mL * Malu Patel 10/23/2024 12:4 7:46 PM EDT > See phone encounter 6.?Prostate cancer screening?LAB: P-PSA (Collection Date & Time - 10/20/2024 08:30 AM)?Normal* Value Reference Range P SA 0.54 <4.00 - ng/mL * Amanda Malu 10/23/2024 12:4 7:46 PM EDT > See phone encounter 7.?History of DVT of lower extremity?LAB: PT/INR (in house) (Collection Date & Time - 10/20/2024)* Value Reference Range I NR 4.1 * c urrent dose 10 mg Daily * n ew dose 7.5 mg daily * n ext check 3 weeks at [facility] * i deal INR 2-3 * Melani Burciaga 10/20/2024 09:31: 18 AM EDT > Provider reviewed results while patient in office. 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 * Procedure Codes: G 2211 Complex e/[place], [address] GLUCOSE TEST, 30971 GLYCATED HEMOGLOBIN TEST, Modifiers: QW , 7[address] PROTHROMBIN TIME, Modifiers: QW , 3051F HG A1C>EQUAL 7.0%<8.0%, 1036F TOBACCO NON-USER, G8950 PREHTN/HTN BP DOC INDCD F/U DOC, G8753 MOST RECENT SYSTOLIC BP >= 140MM HG, G8754 MOST RECENT DIASTOLIC BP < 90MM HG * Follow Up: 6 Months * Images: Billing Information: * Visit Code: 42162 Office Visit, Est Pt., Level 4. * Procedure Codes: G2211 Complex e/[place]. [address] GLUCOSE TEST. 12300 GLYCATED HEMOGLOBIN TEST. Modifiers: QW 62734 PROTHROMBIN TIME. Modifiers: QW 3051F HG A1C>EQUAL 7.0%<8.0%. 1036F TOBACCO NON-USER. G8950 PREHTN/HTN BP DOC INDCD F/U DOC. G8753 MOST RECENT SYSTOLIC BP >= 140MM HG. G8754 MOST RECENT DIASTOLIC BP < 90MM HG. * Electronic signature of Mora Stout MD on 11/16/2024 at 10:48 AM EDT Sign off status: Pending * Provider: Alexandre Stout M.D. Date: 0 10/20/2024 Generated for Andressa carter/Elías/Geraitting on: 0 11/16/2024 10:48 AM EDT History and Physical Notes * HPI (History of Present Illness) Category Sub-Category Detail Notes Category Not es Endocrinology Recent Blood Sugars Pt here to f/u on DM 2 Cardiology Blood Pressure Elevated Pt here for 6 mo f/u on hypertension. Pt states he is doing well and [...]
--- OUTSIDE RECORDS SUMMARY | 2024-11-16 10:49 | XMS_ITS | Patient Health Record ---
[facility] Address [address] [facility] [address] [place] [id number] Care Team Providers Care Hem Inspector Name Role Phone Drew Stout Primary Care Provider Shae Dominguez Unavailable [phone] Allergies No Known Allergies Results Component Value [...] Interpretation:Several polyps Performing Lab: Notes/Report: Several polyps Influenza Screen (in house) Reviewed date:06/19/2024 01:09:35 PM Interpretation:pos fluA Performing Lab: Notes/Report: pos fluA results pos fluA PT/INR (in house) Reviewed date:10/20/2024 10:45:54 AM Interpretation: Performing Lab: Notes/Report: INR 4.1 current dose 10 mg Daily new dose 7.5 mg daily next check 3 weeks at [facility] ideal INR 2-3 Glucose (In-House) Reviewed date:10/20/2024 10:45:54 AM Interpretation:107 Performing Lab: Notes/Report: 107 blood glucose 107 74 - 106 mg/dL Glycohemoglobin A1c (in hous e) Reviewed date:10/20/2024 10:45:54 AM Interpretation:7.2 Performing Lab: Notes/Report: 7.2 glycohemoglobin 7.2% 5 - 6.5 % P-Comprehensive Metabolic Pa codie ([facility]) Reviewed date:10/23/2024 12:47:55 PM Interpretation:gluc 118 Performing Lab: Notes/Report: Test performed by [facility] [address] [place] [address] , [address], [place] [address] Sterling Allen MD, Hotel Maintenance Worker CLIA: [id number] Sodium 139 135-145 mmol/L Potassium 4.4 3.5-5.3 [...] Interpretation:Normal Performing Lab: Notes/Report: Test performed by [facility] [address] [place] [address] , [address], [place] [address] Sterling Allen MD, Hotel Maintenance Worker CLIA: [id number] Cholesterol 119 <200 mg/dL Triglycerides 127 <150 [...] Interpretation:Normal Performing Lab: Notes/Report: Test performed by [facility], [address] , [address], [place] [address] Sterling Allen MD, Hotel Maintenance Worker CLIA: [id number] PSA 0.54 <4.00 ng/mL Please note this is an ultrasensitive PSA assay with a lower limit of detection of 0.014 ng/mL. This test is performed by the [facility] ECLIA methodology. Values obtained with different assay methods or kits cannot be directly compared. P-TSH reflex to FT4 Reviewed date:10/23/2024 12:47:55 PM Interpretation:Normal Performing Lab: Notes/Report: Test performed by [facility] [address] , [address], [place] [address] Sterling Allen MD, Hotel Maintenance Worker CLIA: [id number] TSH reflex to FT4 1.49 0.43-5.25 mU/L P-Microalbumin/Creatinine, R andom Urine Sample Reviewed date:10/23/2024 12:47:55 PM Interpretation:Normal Performing Lab: Notes/Report: Test performed by [facility] , [address], [place] [address] Sterling Aleln MD, Hotel Maintenance Worker CLIA: [id number] Albumin/Creatinine Ratio, Urine <4.30 0-30 ug/mg Microalbumin, Urine, Random <0.3 Creatinine, Urine 69.7 P-Uric Acid Reviewed date:10/23/2024 12:47:55 PM Interpretation:Normal Performing Lab: Notes/Report: Test performed by [facility] [address] , [address], [place] [address] Sterling Allen MD, Hotel Maintenance Worker CLIA: [id number] Uric Acid 4.2 3.4-8.0 mg/dL P-Vitamin D 25-Hydroxy Reviewed date:10/23/2024 12:47:55 PM Interpretation:42.6 Performing Lab: Notes/Report: Test performed by [facility] [address] , [address], [place] [address] Sterling Allen MD, Hotel Maintenance Worker CLIA: [id number] Vitamin D 25-Hydroxy 42.6 30.0-100.0 ng/mL Interpretation of Vitamin D 25 OH: < 20 ng/mL - Deficiency 20 - 29 ng/mL - Insufficiency 30 - 100 ng/mL - Sufficiency > 100 ng/mL - Super-therapeutic- toxicity may occur above this level. Clinical correlation required. 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 H-PT/INR Reviewed date:09/28/2024 09:42:54 AM Interpretation: Performing Lab: Notes/Report: PT 30.3 10.1-12.5 seconds INR 2.96 0.9-1.1 INDICATION INR RANGE Therapy for DVT, PE, Atrial Fib, 2.0-3.0 Prophylaxis for VTE. 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 Medications Medication SIG (Take, Route, Frequency, Duration) Notes Start Date End Date Status Vitamin D3 50 MCG (1999) 2.5 cap(s) o rally once a day Active CPAP SUPPLIES DIRECTED 02/10/2019 Act aaron Fenofibrate 150 MG 1 capsule with food Orally Once a day; Duration: 90 days Active Jardiance 25 MG 1 tablet Orally Once a day; Duration: 90 days Active Allopurinol 300 MG 1 tablet Orally Once a day; Duration: 90 days Active metFORMIN HCl ER 500 MG 2 tablets orally twice a day; Duration: 90 days Active Rosuvastatin Calcium 20 MG 1 tablet Oral ly Once a day; Duration: 90 days Active Pioglitazone HCl 30 MG 1 tablet Orally O nce a day; Duration: 90 days Active Enoxaparin Sodium 100 MG/ML 100 mg Injec tion every 12 hrs; Duration: 7 days 07/24/2024 Active Triamterene-HCTZ 37.5-25 MG 1/2 tab(s) o rally once a day; Duration: 90 days Active Jantoven 5 MG TAKE 1 TO 2 TABLETS ONCE DAILY Active Immunizations Vaccine Route Administration Date Status [...] Problem Status W/U Status Risk Notes Problem Vitamin D deficiency (18076818) Vitamin D deficiency (E55.9) Active confirmed Problem Essential hypertension (00703793) Essential hypertension (I10) Active confirmed Problem Hypertriglyceridemia (617742430) Hypertriglyceridemia (E78.1) Active confirmed Problem History of thromboembolism of vein (898982096) History of DVT of lower extremity (Z86.718) Active confirmed PT/INR order 12/17/20 to 12/17/21 Problem Long-term current us e of anticoagulant (302182024) terminal gauger current use of anticoagulant (Z79.01) Active confirmed Problem Sebaceous cyst (792781602) Sebaceous cyst (L72.3) Active confirmed Problem Mixed hyperlipidemia (548790773) Mixed hyperlipidemia (E78.2) Active confirmed Problem Obesity (529700842) Non morbid o besity due to excess calories (E66.09) Active confirmed Problem Obstructive sleep apnea syndrome (76312941) Obstructive sleep apnea syndrome (G47.33) Active confirmed Problem Chronic gouty arthritis (83882405) Chronic gout without tophus, unspecified cause, unspecified site (M1A.9XX0) Active confirmed Problem Essential hypertension (16102394) Essential hypertension, hypertension with unspecified goal (I10) Active confirmed Problem Type II diabetes mellitus without complication (185224238) Type 2 diabetes mellitus without complication, without long-term current use of insulin (E11.9) Active confirmed Problem Obesity (477713321) Non morbid o besity (E66.9) Active confirmed Problem Type 2 diabetes mellitus with other specified complication, unspecified whether intermediate manager insulin use (E11.69) Active confirmed Vital Signs Heart Rate 69 /min 10/20/2024 Blood pressure diastolic 80 mm Hg 10/20/2024 Height 73.50 in 10/20/2024 Blood pressure systolic 140 mm Hg 10/20/2024 Weight 278.2 lbs 10/20/2024 BMI 36.2 kg/m2 10/20/2024 Encounters Encounter Location Date [facility] [address] [place] [id number] 04/21/2024 Drew Stout Type 2 diabetes mellitus without complication, without long-term current use of insulin E11.9 ; Essential hypertension I10 ; History of DVT of lower extremity Z86.718 ; half-way current use of anticoagulant Z79.01 ; Colon cancer screening Z12.11 and Encounter for immunization Z23 [facility] [address] [place] [id number] 06/19/2024 Shae Dominguez Influenza A J10.[address] [place] [id number] 10/20/2024 Drewgeorges Stout Type 2 diabetes mellitus without complication, without long-term current use of insulin E11.9 ; Essential hypertension, hypertension with unspecified goal I10 ; Mixed hyperlipidemia E78.2 ; Hypertriglyceridemia E78.1 ; Chronic gout without tophus, unspecified cause, unspecified site M1A.9XX0 ; Vitamin D deficiency E55.9 ; Prostate cancer screening Z12.5 ; History of DVT of lower extremity Z86.718 ; terminal gauger current use of anticoagulant Z79.01 ; Non morbid obesity E66.9 and Type 2 diabetes mellitus with other specified complication, unspecified whether intermediate manager insulin use E11.69 [facility] [address] [place] [id number] 11/22/2023 Drew Liberty [facility] [address] [place], [place] [id number] 12/31/2023 Drew Liberty [facility] [address] [place] [id number] 01/28/2024 Drew Liberty [facility] [address] [place] [id number] 03/15/2024 Drew Liberty [facility] [address] [place] [id number] 04/28/2024 Drew Liberty Type 2 diabetes mellitus without complication, without long-term current use of insulin E11.9 ; Essential hypertension I10 and History of DVT of lower extremity Z86.718 [facility] [address] [place], [place] [id number] 04/28/2024 Drew Liberty [facility] [address] [place] [id number] 06/05/2024 Drew Liberty [facility] [address] [place] [id number] 07/07/2024 Drew Liberty [facility] [address] [place] [id number] 07/18/2024 Drew Liberty [facility] [address] [place] [id number] 07/21/2024 Drew Liberty [facility] [address] [place] [id number] 08/14/2024 Drew Liberty [facility] [address] [place] [id number] 08/29/2024 Drew Liberty [facility] [address] [place] [id number] 09/27/2024 Drew Liberty [facility] [address] [place] [id number] 10/23/2024 Drew Liberty Assessments Encounter Date Diagnosis (ICD Code) Assessment Notes Treatment Notes Treatment Clinical Notes Section Notes 04/21/2024 Essential hypertensi on (ICD-10 - I10) 04/28/2024 Type 2 diabetes andres itus without complication, without long-term current use of insulin (ICD-10 - E11.9) 06/19/2024 Influenza A (ICD-10 - J10.1) fluids, rest, supportive measures for fever/symptom relief 04/21/2024 Type 2 diabetes andres itus without complication, without long-term current use of insulin (ICD-10 - E11.9) 10/20/2024 Essential hypertensi on, hypertension with unspecified goal (ICD-10 - I10) 10/20/2024 Type 2 diabetes andres itus without complication, without long-term current use of insulin (ICD-10 - E11.9) 10/20/2024 Mixed hyperlipidemia (ICD-10 - E78.2) 04/28/2024 Essential hypertensi on (ICD-10 - I10) 04/21/2024 History of DVT of lo wer extremity (ICD-10 - Z86.718) 04/21/2024 half-way current us e of anticoagulant (ICD-10 - Z79.01) 04/28/2024 History of DVT of lo wer extremity (ICD-10 - Z86.718) 10/20/2024 Hypertriglyceridemia (ICD-10 - E78.1) 10/20/2024 Chronic gout without tophus, unspecified cause, unspecified site (ICD-10 - M1A.9XX0) 04/21/2024 Colon cancer screeni ng (ICD-10 - Z12.11) 04/21/2024 Encounter for immunization (ICD-10 - Z23) 10/20/2024 Vitamin D deficiency (ICD-10 - E55.9) 10/20/2024 Prostate cancer screening (ICD-10 - Z12.5) 10/20/2024 History of DVT of lo wer extremity (ICD-10 - Z86.718) 10/20/2024 half-way current us e of anticoagulant (ICD-10 - Z79.01) 10/20/2024 Non morbid obesity (ICD-10 - E66.9) 10/20/2024 Type 2 diabetes andres itus with other specified complication, unspecified whether [facility] insulin use (ICD-10 - E11.69) Plan Of Treatment Next Appt Details Provider Name:Drew Zuniga ry, 04/23/2025 10:00:00 AM, [address], [address], [place], [id number], Insurance Providers Payer Name Payer Address Payer Phone Subscriber Number Group Number Insured Name Patient Relationship to Insured Coverage Start Date Coverage End Date MEDICARE PART B [address] [address] [place] [address] [phone] [id number] Katlyn Staton Self - patient is the insured [employer] [address] [address] [place] [id number] Katlyn Staton Self - patient is the insured Medical (General) History Medical History History ICD Code Type 2 Diabetes DVT, Protein S deficiency Hypertriglyceridemia Hyperuricemia Colon polyps, needs colonoscopy every 5 years Testosterone deficiency Vitamin D deficiency sleep apnea, Dx: 2016 RE positive July 2019 Eye Exam 01/2022 Surgical History Surgery Date(Month/Year) Colonoscopy 2008, 2013, 2018 Hospitalization History Reason Date(Month/Year) LT Leg Cellulitis- [facility] ER 09/14/2020 RT Leg DVT- [facility] 01/17-03/2007
[2024-11-16 12:15] LABS: INR 1.65 (0.9-1.1); Prothrombin Time 17.6 seconds (10.1-12.5)
== END 2024-11-16 23:59 | disposition home or self-care (01) ==
LOC: LAB 10:46
PROVIDERS: PCP Family Medicine; Visit Provider Family Medicine
DX: Z51.81 Encounter for therapeutic drug level monitoring (principal); Z79.01 Long term (current) use of anticoagulants
CPT/HCPCS: 36415; 85610

== ENCOUNTER 2024-11-29 12:04 | Outpatient (CLI) | payer MEDICARE, OTHER, SELFPAY ==
--- OUTSIDE RECORDS SUMMARY | 2024-04-21 05:15 | XMS_ITS ---
Author Organization [facility] Address [address] [place] [id number] Care Team Providers Care Senior Portfolio Manager Name Role Phone Drew Stout Primary Care Provider [phone] Allergies No Known Allergies Results Component Value Reference Range Notes PT/INR (in house) Reviewed date:04/21/2024 01:26:18 PM Interpretation: Performing Lab: Notes/Report: INR 2.0 current dose 7.5mg Daily new dose no change next check 1 month ideal INR 2-3 Glucose (In-House) Reviewed date:04/21/2024 12:55:25 PM Interpretation: Performing Lab: Notes/Report: blood glucose 117 74 - 106 mg/dL Glycohemoglobin A1c (in hous e) Reviewed date:04/21/2024 12:55:16 PM Interpretation: Performing Lab: Notes/Report: glycohemoglobin 7.1% 5 - 6.5 % colonoscopy Reviewed date:09/26/2024 10:31:42 PM Interpretation:Several polyps Performing Lab: Notes/Report: Several polyps REASON FOR VISIT 6 mth check up Medications Medication SIG (Take, Route, Frequency, Duration) Notes Start Date End Date Status Jantoven 5 MG TAKE 1 TO 2 TABLETS ONCE DAILY Active Pioglitazone HCl 30 MG TAKE 1 TABLET ONCE DAILY Active Vitamin D3 50 MCG (1999) 2.5 cap(s) o rally once a day Active CPAP SUPPLIES DIRECTED 02/10/2019 Act aaron Allopurinol 300 MG TAKE 1 TABLET ONCE D AILY; Duration: 90 Active metFORMIN HCl ER 500 MG TAKE 2 TABLETS T WICE A DAY Active Jardiance 25 MG TAKE 1 TABLET EVERY MORNING Active Triamterene-HCTZ 37.5-25 MG 1/2 tab(s) o rally once a day Active Fenofibrate 150 MG TAKE 1 CAPSULE ONCE DAILY; Duration: 90 Active Rosuvastatin Calcium 20 MG TAKE 1 TABLET ONCE DAILY; Duration: 90 Active Immunizations Vaccine Route Administration Date Status Comme nts Prevnar (PCV20) IM Intramuscular 04/21/2024 Administered Vital Signs Blood pressure systolic 142 mm Hg 04/21/19 25 Blood pressure diastolic 80 mm Hg 025 Heart Rate 70 /min 04/21/2024 Height 73.50 in 04/21/2024 Weight 286.6 lbs 04/21/2024 BMI 37.30 kg/m2 04/21/2024 Encounters Encounter Location Date Provider Diagnosis [facility] [address] [phone] 04/21/2024 Drew Stout Type 2 diabetes andres itus without complication, without long-term current use of insulin E11.9 ; Essential hypertension I10 ; History of DVT of lower extremity Z86.718 ; 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 ; Colon cancer screening Z12.11 and Encounter for immunization Z23 Assessments Encounter Date Diagnosis (ICD Code) Assessment Notes Treatment Notes Treatment Clinical Notes Section Notes 04/21/2024 Type 2 diabetes mellitus without complication, without long-term current use of insulin (ICD-10 - E11.9) 04/21/2024 Essential hypertension (ICD-10 - I10) 04/21/2024 History of DVT of lower extremity (ICD-10 - Z86.718) 04/21/2024 bed bug exterminator current use of anticoagulant (ICD-10 - Z79.01) 04/21/2024 Colon cancer screening (ICD-10 - Z12.11) 04/21/2024 Encounter for immunization (ICD-10 - Z23) Plan Of Treatment Medication Medication Name Sig Start Date Stop Date Notes Jantoven 5 MG TAKE 1 TO 2 TABLETS ONCE DAILY Pioglitazone HCl 30 MG TAKE 1 TABLET ONCE DAILY metFORMIN HCl ER 500 MG TAKE 2 TABLETS TWICE A DAY Jardiance 25 MG TAKE 1 TABLET EVERY MORNING Triamterene-HCTZ 37.5-25 MG 1/2 tab(s) orally once a day Next Appt Details Follow Up: 6 Months, Reason: Provider Name:Drew Zuniga ry, 04/23/2025 10:00:00 AM, [address], [address], [place], [phone], Progress Notes * Katlyn STATONDOB:09/1960 (64 yo M)Acc No.[id number]:04/21/2024 Progress Notes Patient: Katlyn CARBAJAL Provider: Alexandre Stout M.D. :1960 A ge:63 Y S ex:Male Date:04/21/2024 Address:[address], [id number] Subjective: * Chief Complaints: * 1 . 6 mth check up. * HPI: C ardiology: 63 year old male presents with c/o Blood Pressure Elevated P t here for 6 mo f/u on hypertension, states he is doing well and does not have any concerns. c/o Hyperlipidemia P t is fasting today. E ndocrinology: c/o Recent Blood Sugars P t here to f/u on DM 2, pt states that he does not check his blood sugar at home. * ROS: D ERMATOLOGY: no R bobby. [...] * Surgical History: C olonoscopy 2008, 2013, 2019. * Hospitalization/Major Diagno stic Procedure: R T Leg DVT- [facility] 01/17-03/2007, LT Leg Cellulitis- [facility] ER 09/14/2020. * Family History: F ather: alive 92 yrs, CABG x4, colon CA. M other: alive 85 yrs, valve repair. P aternal Grand Father: , [place]. P aternal Grand Mother: , alzheimer. M [...] ouside US: no. * Medications: T aking CPAP SUPPLIES DIRECTED , Taking Triamterene-HCTZ 37.5-25 MG Tablet 1/2 tab(s) orally once a day , Taking Vitamin D3 50 MCG (1999 [place]) Capsule 2.5 cap(s) orally once a day , Taking Jantoven 5 MG Tablet TAKE 1 TO 2 TABLETS ONCE DAILY , Taking Pioglitazone HCl 30 MG Tablet TAKE 1 TABLET ONCE DAILY , Taking Rosuvastatin Calcium 20 MG Tablet TAKE 1 TABLET ONCE DAILY , Taking Fenofibrate 150 MG Capsule TAKE 1 CAPSULE ONCE DAILY , Taking Allopurinol 300 MG Tablet TAKE 1 TABLET ONCE DAILY , Taking metFORMIN HCl ER 500 MG Tablet Extended Release 24 Hour TAKE 2 TABLETS TWICE A DAY , Taking Jardiance 25 MG Tablet TAKE 1 TABLET EVERY MORNING , Medication List reviewed and reconciled with the patient * Allergies: N .K.D.A. Objective: * Vitals: W t:286.6, Temp:98.0, BP:142/80, HR:70, Nurse:vicki, Ht: 73.50, BMI:37.30. * Examination: C ardiology: General Appearance: p [...] - E11.9 (Primary) 2 . E ssential hypertension - I10 3 . H istory of DVT of lower extremity - Z86.718 4 . L anibal term current use of anticoagulant - Z79.01 5 . C olon cancer screening - Z12.11 6 . E ncounter for immunization - Z23 Plan: * Treatment: Value Reference Range b lood glucose 117 74 - 106 mg/dL * Radha Burciagaira 04/21/2024 10:03:5 4 AM > , Provider reviewed results while patient in office. ?LAB: Glycohemoglobin A1c (in house) (Collection Date & Time - 04/21/2024)* Value Reference Range g lycohemoglobin 7.1% 5 - 6.5 % * Melani 04/21/2024 10:07:0 3 AM > , Provider reviewed results while patient in office. 2.?Essential hypertension? Continue Triamterene-HCTZ Tablet, 37.5-25 MG, 1/2 tab(s), orally, once a day.?? 3.?History of DVT of lower extremity? Continue Jantoven Tablet, 5 MG, TAKE 1 TO 2 TABLETS ONCE DAILY.?LAB: PT/INR (in house) (Collection Date & Time - 04/21/2024)* Value Reference Range I NR 2.0 * c urrent dose 7.5mg Daily * n ew dose no change * n ext check 1 month * i deal INR 2-3 * GualbertoRadhaMelani 04/21/2024 10:05:4 4 AM > , Provider reviewed results while patient in office.Drew Stout 04/21/2024 1:26:14 PM > 4.?Colon cancer screening?Imaging: colonoscopy (Performed Date - 08/03/2024)?Several polyps* Malu Patel 04/21/2024 10:56 :56 AM > order faxed to Drew Lawrence 09/26/2024 10:31:37 PM EDT > * Immunizations: Prevnar (PCV20) : 0.5 mL (Route: Intramuscular) given by Melani Burciaga on Right Deltoid (Encounter for immunization) * Procedure Codes: G 2211 Complex e/[place], [address] CAPILLARY BLOOD DRAW, 43963 GLUCOSE TEST, 38040 GLYCATED HEMOGLOBIN TEST, Modifiers: QW , 57848 PROTHROMBIN TIME, Modifiers: QW * Follow Up: 6 Months * Images: Billing Information: * Visit Code: 75506 Office Visit, Est Pt., Level 4. * Procedure Codes: G2211 Complex e/[place]. [address] CAPILLARY BLOOD DRAW. 90682 GLUCOSE TEST. 76203 GLYCATED HEMOGLOBIN TEST. Modifiers: QW 39946 PROTHROMBIN TIME. Modifiers: QW * Electronic signature of Mora Stout MD on 11/29/2024 at 12:06 PM EDT Sign off status: Pending * Provider: Alexandre Stout M.D. Date: 0 04/21/2024 Generated for Andressa carter/Elías/Bradleyransmitting on: 0 11/29/2024 12:06 PM EDT History and Physical Notes * HPI (History of Present Illness) Category Sub-Category Detail Notes Category Not es Endocrinology Recent Blood Sugars Pt here to f /u on DM 2, pt states that he does not check his blood sugar at home Cardiology Blood Pressure Elevated Pt here for [...]
--- OUTSIDE RECORDS SUMMARY | 2024-06-19 07:00 | XMS_ITS ---
Author Organization [facility] Address [address] [place] [phone] Care Team Providers Care Plan Checker Name Role Phone Drew Stout Primary Care Provider [phone] Shae Dominguez Unavailable [phone] Allergies No Known Allergies Results Component Value [...] 06/19/2024 Encounters Encounter Location Date Provider Diagnosis [facility] [address] [facility] 36 [facility] [address] [place], [place] [phone] 06/19/2024 Shae Dominguez Influenza A J10.1 Assessments [...] Provider Name:Drew mason, 04/23/2025 10:00:00 AM, [address] [facility] 36 [facility], [address], [place], [place], [phone], Progress Notes * Katlyn STATONDOB:09/1960 (64 yo M)Acc No.[id number]:06/19/2024 Progress Notes Patient: Eagle CARBAJALrachana Almaraz Provider: DOMONIQUE Means :1960 A ge:64 Y S ex:Male Date:06/19/2024 Address:[address] [id number] Pcp:Drew Stout Subjective: * Chief Complaints: * [...] Diagno stic Procedure: R T Leg DVT- [facility] 01/17-03/2007, LT Leg Cellulitis- [facility] ER 09/14/2020. * Family History: F [...] G 2211 Complex e/[place], [address] [place], [address] Flu Test- Nasal Swab, Modifiers: QW , G8752 MOST RECENT SYSTOLIC BP < 140MM HG, G8754 MOST RECENT DIASTOLIC BP < 90MM HG * Follow Up: p rn * Images: Billing Information: * Visit Code: 06571 Office Visit, Est Pt., Level 3. * Procedure Codes: G2211 Complex e/[place]. [address] [place]. [address] Flu Test- Nasal Swab. Modifiers: QW G8752 MOST RECENT SYSTOLIC BP < 140MM HG. G8754 MOST RECENT DIASTOLIC BP < 90MM HG. * Electronic signature of Sharlene Dominguez APRN on 11/29/2024 at 12:06 PM EDT Sign off status: Pending * Provider: DOMONIQUE Means Date: 0 06/19/2024 Generated for Ericksoni emma/Facherry/eTransmitting on: 0 11/29/2024 12:06 PM EDT History [...]
--- OUTSIDE RECORDS SUMMARY | 2024-10-20 05:00 | XMS_ITS ---
Author Organization [facility] Address [address] [place] [id number] Care Team Providers Care Cook Helper Pastry Name Role Phone Drew Stout Primary Care Provider Allergies No Known Allergies Results Component Value Reference Range Notes PT/INR (in house) Reviewed date:10/20/2024 10:45:54 AM Interpretation: Performing Lab: Notes/Report: INR 4.1 current dose 10 mg Daily new dose 7.5 mg daily next check 3 weeks at [facility] ideal INR 2-3 Glucose (In-House) Reviewed date:10/20/2024 10:45:54 AM Interpretation:107 Performing Lab: Notes/Report: 107 blood glucose 107 74 - 106 mg/dL Glycohemoglobin A1c (in hous e) Reviewed date:10/20/2024 10:45:54 AM Interpretation:7.2 Performing Lab: Notes/Report: 7.2 glycohemoglobin 7.2% 5 - 6.5 % P-Comprehensive Metabolic Pa codie (CMP) Reviewed date:10/23/2024 12:47:55 PM Interpretation:gluc 118 Performing Lab: Notes/Report: Test performed by [facility], [email or web address] [address] [place] [address] , [address], [place] [address] Sterling Allen MD, Radiology Transporter CLIA: [id number] Sodium 139 135-145 mmol/L Potassium 4.4 3.5-5.3 [...] Interpretation:Normal Performing Lab: Notes/Report: Test performed by [facility], [address] , [address], [place] [address] Sterling Allen MD, Radiology Transporter CLIA: [id number] Cholesterol 119 <200 mg/dL Triglycerides 127 <150 [...] Interpretation:Normal Performing Lab: Notes/Report: Test performed by [facility] [address] [place] [address] , [place] [address] Sterling Allen MD, Radiology Transporter CLIA: [id number] PSA 0.54 <4.00 ng/mL Please note this is an ultrasensitive PSA assay with a lower limit of detection of 0.014 ng/mL. This test is performed by the [employer] ECLIA methodology. Values obtained with different assay methods or kits cannot be directly compared. P-TSH reflex to FT4 Reviewed date:10/23/2024 12:47:55 PM Interpretation:Normal Performing Lab: Notes/Report: Test performed by [facility] [address] [place] [address] , [place] [address] Sterling Allen MD, Radiology Transporter CLIA: [id number] TSH reflex to FT4 1.49 0.43-5.25 mU/L P-Microalbumin/Creatinine, R andom Urine Sample Reviewed date:10/23/2024 12:47:55 PM Interpretation:Normal Performing Lab: Notes/Report: Test performed by [facility] [address] [place] [address] , [address], [place] [address] Sterling Allen MD, Radiology Transporter CLIA: [id number] Albumin/Creatinine Ratio, Urine <4.30 0-30 ug/mg Microalbumin, Urine, Random <0.3 Creatinine, Urine 69.7 P-Uric Acid Reviewed date:10/23/2024 12:47:55 PM Interpretation:Normal Performing Lab: Notes/Report: Test performed by [facility] [address] [place] [address] Dany Mackay , [place] [address] Sterling Allen MD, Radiology Transporter CLIA: [id number] Uric Acid 4.2 3.4-8.0 mg/dL P-Vitamin D 25-Hydroxy Reviewed date:10/23/2024 12:47:55 PM Interpretation:42.6 Performing Lab: Notes/Report: Test performed by [facility] [address] [place] [address] Dany [address]ay , [place] [address] Sterling Allen MD, Radiology Transporter CLIA: [id number] Vitamin D 25-Hydroxy 42.6 30.0-100.0 ng/mL Interpretation [...] mellitus with other specified complication, unspecified whether medical terminologist insulin use (E11.69) Active confirmed Vital Signs Blood pressure systolic 140 mm Hg 10/21/19 25 Blood pressure diastolic 80 mm Hg 025 Heart Rate 69 /min 10/20/2024 Height 73.50 in 10/20/2024 Weight 278.2 lbs 10/20/2024 BMI 36.2 kg/m2 10/20/2024 Encounters Encounter Location Date Provider Diagnosis [facility] [address] [facility] [address] [place], [place] [id number] 10/20/2024 Drew Stout Type 2 diabetes andres itus without complication, without long-term current use of insulin E11.9 ; Essential hypertension, hypertension with unspecified goal I10 ; Mixed hyperlipidemia E78.2 ; Hypertriglyceridemia E78.1 ; Chronic gout without tophus, unspecified cause, unspecified site M1A.9XX0 ; Vitamin D deficiency E55.9 ; Prostate cancer screening Z12.5 ; History of DVT of lower extremity Z86.718 ; 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 ; Non morbid obesity E66.9 and Type 2 diabetes mellitus with other specified complication, unspecified whether medical terminologist insulin use E11.69 Assessments Encounter Date Diagnosis [...] lo wer extremity (ICD-10 - Z86.718) 10/20/2024 parts counterman current us e of anticoagulant (ICD-10 - Z79.01) 10/20/2024 Non morbid obesity (ICD-10 - E66.9) 10/20/2024 Type 2 diabetes andres itus with other specified complication, unspecified whether medical terminologist insulin use (ICD-10 - E11.69) Plan Of Treatment Next Appt Details Follow Up: 6 Months, Reason: Provider Name:Drew Zuniga ry, 04/23/2025 10:00:00 AM, [address], [address], [place], [place], [id number], Progress Notes * Katlyn STATON SungDOB:09/1960 (64 yo M)Acc No.[id number]:10/20/2024 Progress Notes Patient: Katlyn CARBAJAL Provider: Alexandre Stout M.D. :1960 A ge:64 Y S ex:Male Date:10/20/2024 Address:[facility], [id number] Subjective: * Chief Complaints: * 1 . [...] Diagno stic Procedure: R T Leg DVT- [facility] 01/17-03/2007, LT Leg Cellulitis- [facility] ER 09/14/2020. * Family History: F [...] mellitus with other specified complication, unspecified whether chcf insulin use - E11.69 Plan: * Treatment: [...] 7.2% 5 - 6.5 % * Melani Burciaga 10/20/2024 09:34: 20 AM EDT > Provider [...] * n ext check 3 weeks at [facility] * i deal INR 2-3 * Melani Burciaga 10/20/2024 09:31: 18 AM EDT > Provider reviewed results while patient in office. 8.?parts counterman current use of anticoagulant?LAB: PT/INR (in house) (Collection Date & Time - 10/20/2024)* Value Reference Range I NR 4.1 * c urrent dose 10 mg Daily * n ew dose 7.5 mg daily * n ext check 3 weeks at [facility] * i deal INR 2-3 * Melani Burciaga 10/20/2024 09:31: 18 AM EDT > Provider reviewed results while patient in office. * Procedure Codes: G 2211 Complex e/[place], [address] GLUCOSE TEST, 86829 GLYCATED HEMOGLOBIN TEST, Modifiers: QW , [address] PROTHROMBIN TIME, Modifiers: QW , 3051F HG A1C>EQUAL 7.0%<8.0%, 1036F TOBACCO NON-USER, G8950 PREHTN/HTN BP DOC INDCD F/U DOC, G8753 MOST RECENT SYSTOLIC BP >= 140MM HG, G8754 MOST RECENT DIASTOLIC BP < 90MM HG * Follow Up: 6 Months * Images: Billing Information: * Visit Code: 28064 Office Visit, Est Pt., Level 4. * Procedure Codes: G2211 Complex e/[place]. [address] GLUCOSE TEST. 57588 GLYCATED HEMOGLOBIN TEST. Modifiers: QW 72244 PROTHROMBIN TIME. Modifiers: QW 3051F HG A1C>EQUAL [...] 10/20/2024 Generated for Andressa carter/Elías/Geraitting on: 0 11/29/2024 12:06 PM EDT History [...]
--- OUTSIDE RECORDS SUMMARY | 2024-11-29 12:07 | XMS_ITS | Patient Health Record ---
Author [facility] Address [address] [facility] [address] [phone] Care Team Providers Care Sisal Picker Name Role Phone Drew Stout Primary Care Provider Shae Dominguez Unavailable [phone] Allergies No Known Allergies Results Component Value [...] mg daily next check 3 weeks at [facility] ideal INR 2-3 Glucose (In-House) Reviewed date:10/20/2024 10:45:54 AM Interpretation:107 Performing Lab: Notes/Report: 107 blood glucose 107 74 - 106 mg/dL Glycohemoglobin A1c (in hous e) Reviewed date:10/20/2024 10:45:54 AM Interpretation:7.2 Performing Lab: Notes/Report: 7.2 glycohemoglobin 7.2% 5 - 6.5 % P-Comprehensive Metabolic Pa codie ([facility]) Reviewed date:10/23/2024 12:47:55 PM Interpretation:gluc 118 Performing Lab: Notes/Report: Test performed by [facility] [address] [place] [address] , [address], [place] [address] Sterling Allen MD, Automobile Salesman CLIA: [id number] Sodium 139 135-145 mmol/L Potassium 4.4 3.5-5.3 [...] Interpretation:Normal Performing Lab: Notes/Report: Test performed by [facility] [address] [place] [address] , [address], [place] [address] Sterling Allen MD, Automobile Salesman CLIA: [id number] Cholesterol 119 <200 mg/dL Triglycerides 127 <150 [...] Interpretation:Normal Performing Lab: Notes/Report: Test performed by [facility], [address] , [address], [place] [address] Sterling Allen MD, Automobile Salesman CLIA: [id number] PSA 0.54 <4.00 ng/mL Please note this is an ultrasensitive PSA assay with a lower limit of detection of 0.014 ng/mL. This test is performed by the [facility] ECLIA methodology. Values obtained with different assay methods or kits cannot be directly compared. P-TSH reflex to FT4 Reviewed date:10/23/2024 12:47:55 PM Interpretation:Normal Performing Lab: Notes/Report: Test performed by [facility] [address] , [address], [place] [address] Sterling Allen MD, Automobile Salesman CLIA: [id number] TSH reflex to FT4 1.49 0.43-5.25 mU/L P-Microalbumin/Creatinine, R andom Urine Sample Reviewed date:10/23/2024 12:47:55 PM Interpretation:Normal Performing Lab: Notes/Report: Test performed by [facility] , [address], [place] [address] Sterling Allen MD, Automobile Salesman CLIA: [id number] Albumin/Creatinine Ratio, Urine <4.30 0-30 ug/mg Microalbumin, Urine, Random <0.3 Creatinine, Urine 69.7 P-Uric Acid Reviewed date:10/23/2024 12:47:55 PM Interpretation:Normal Performing Lab: Notes/Report: Test performed by [facility] [address] , [address], [place] [address] Sterling Allen MD, Automobile Salesman CLIA: [id number] Uric Acid 4.2 3.4-8.0 mg/dL P-Vitamin D 25-Hydroxy Reviewed date:10/23/2024 12:47:55 PM Interpretation:42.6 Performing Lab: Notes/Report: Test performed by [facility] [address] , [address], [place] [address] Sterling Allen MD, Automobile Salesman CLIA: [id number] Vitamin D 25-Hydroxy 42.6 30.0-100.0 ng/mL Interpretation of Vitamin D 25 [place]: < 20 ng/mL - Deficiency 20 - 29 ng/mL - Insufficiency 30 - 100 ng/mL - Sufficiency > 100 ng/mL - Super-therapeutic- toxicity may occur above this level. Clinical correlation required. 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 H-PT/INR Reviewed date:11/17/2024 11:29:48 AM Interpretation: Performing Lab: Notes/Report: PT 17.6 10.1-12.5 seconds INR 1.65 0.9-1.1 INDICATION INR RANGE Therapy for DVT, [...] Status Risk Notes Problem Vitamin D deficiency (63486981) Vitamin D deficiency (E55.9) Active confirmed Problem Essential hypertension (27753348) Essential hypertension (I10) Active confirmed Problem Hypertriglyceridemia (455468575) Hypertriglyceridemia (E78.1) Active confirmed Problem History of thromboembolism of vein (576612245) History of DVT of lower extremity (Z86.718) Active confirmed PT/INR order 12/17/20 to 12/17/21 Problem Long-term current us e of anticoagulant (011010607) termination clerk current use of anticoagulant (Z79.01) Active confirmed Problem Sebaceous cyst (229410698) Sebaceous cyst (L72.3) Active confirmed Problem Mixed hyperlipidemia (111817877) Mixed hyperlipidemia (E78.2) Active confirmed Problem Obesity (118836910) Non morbid o besity due to excess calories (E66.09) Active confirmed Problem Obstructive sleep apnea syndrome (51358159) Obstructive sleep apnea syndrome (G47.33) Active confirmed Problem Chronic gouty arthritis (39450716) Chronic gout without tophus, unspecified cause, unspecified site (M1A.9XX0) Active confirmed Problem Essential hypertension (95522365) Essential hypertension, hypertension with unspecified goal (I10) Active confirmed Problem Type II diabetes mellitus without complication (834689231) Type 2 diabetes mellitus without complication, without long-term current use of insulin (E11.9) Active confirmed Problem Obesity (600167186) Non morbid o besity (E66.9) Active confirmed Problem Type 2 diabetes mellitus with other specified complication, unspecified whether senior care insulin use (E11.69) Active confirmed Vital Signs Heart Rate 69 /min 10/20/2024 Blood pressure diastolic 80 mm Hg 10/20/2024 Height 73.50 in 10/20/2024 Blood pressure systolic 140 mm Hg 10/20/2024 Weight 278.2 lbs 10/20/2024 BMI 36.2 kg/m2 10/20/2024 Encounters Encounter Location Date Provider [facility] [address] [place] [id number] 04/21/2024 Drew Stout Type 2 diabetes mellitus without complication, without long-term current use of insulin E11.9 ; Essential hypertension I10 ; History of DVT of lower extremity Z86.718 ; [facility] current use of anticoagulant Z79.01 ; Colon cancer screening Z12.11 and Encounter for immunization Z23 [facility] [address] [place] [address] [place] [id number] 06/19/2024 Shae Dominguez Influenza A J10.[address] [place] [id number] 10/20/2024 Drewgeorges Stout Type 2 diabetes mellitus without complication, without long-term current use of insulin E11.9 ; Essential hypertension, hypertension with unspecified goal I10 ; Mixed hyperlipidemia E78.2 ; Hypertriglyceridemia E78.1 ; Chronic gout without tophus, unspecified cause, unspecified site M1A.9XX0 ; Vitamin D deficiency E55.9 ; Prostate cancer screening Z12.5 ; History of DVT of lower extremity Z86.718 ; [facility] current use of anticoagulant Z79.01 ; Non morbid obesity E66.9 and Type 2 diabetes mellitus with other specified complication, unspecified whether long distance billing operator insulin use E11.69 [facility] [address] [place] [id number] 12/31/2023 Drew Manila [facility] [address] [place], [place] [id number] 01/28/2024 Drew Manila [facility] [address] [place], [place] [id number] 03/15/2024 Drew Manila [facility] [address] [place], [place] [id number] 04/28/2024 Drew Manila Type 2 diabetes mellitus without complication, without long-term current use of insulin E11.9 ; Essential hypertension I10 and History of DVT of lower extremity Z86.718 [facility] [address] [place], [place] [id number] 04/28/2024 Drew Manila [facility] [address] [place], [place] [id number] 06/05/2024 Drew Manila [facility] [address] [place], [place] [id number] 07/07/2024 Drew Manila [facility] [address] [place], [place] [id number] 07/18/2024 Drew Manila [facility] [address] [place], [place] [id number] 07/21/2024 Drew Manila [facility] [address] [place], [place] [id number] 08/14/2024 Drew Manila [facility] [address] [place] [id number] 08/29/2024 Drew Manila [facility] [address] [place], [place] [id number] 09/27/2024 Drew Manila [facility] [address] [place], [place] [id number] 10/23/2024 Drew Manila [facility] [address] [place], [place] [id number] 11/16/2024 Drew Manila Assessments Encounter Date Diagnosis (ICD Code) Assessment [...] lo wer extremity (ICD-10 - Z86.718) 04/21/2024 [facility] current us e of anticoagulant (ICD-10 - Z79.01) 04/28/2024 History of DVT of lo wer extremity (ICD-10 - Z86.718) 10/20/2024 Hypertriglyceridemia (ICD-10 - E78.1) 04/21/2024 Colon cancer screeni ng (ICD-10 - Z12.11) 10/20/2024 Chronic gout without tophus, unspecified cause, unspecified site (ICD-10 - M1A.9XX0) 04/21/2024 Encounter for immunization (ICD-10 - Z23) 10/20/2024 Vitamin D deficiency (ICD-10 - E55.9) 10/20/2024 Prostate cancer screening (ICD-10 - Z12.5) 10/20/2024 History of DVT of lo wer extremity (ICD-10 - Z86.718) 10/20/2024 termination clerk current us e of anticoagulant (ICD-10 - Z79.01) 10/20/2024 Non morbid obesity (ICD-10 - E66.9) 10/20/2024 Type 2 diabetes andres itus with other specified complication, unspecified whether long distance billing operator insulin use (ICD-10 - E11.69) Plan Of Treatment Next Appt Details Provider Name:Drew Zuniga ry, 04/23/2025 10:00:00 AM, [address], [address], [place], [phone], Insurance Providers Payer Name Payer Address Payer Phone Subscriber Number Group Number Insured Name Patient Relationship to Insured Coverage Start Date Coverage End Date MEDICARE PART B [address] [address] [place] [address] [phone] [id number] Katlyn Staton Self - patient is the insured [employer] [place] [address] [address] [place] [id number] Katlyn Staton Self - patient is the insured Medical (General) History Medical History History ICD Code Type 2 Diabetes DVT, Protein S deficiency Hypertriglyceridemia Hyperuricemia Colon polyps, needs colonoscopy every 5 years Testosterone deficiency Vitamin D deficiency sleep apnea, Dx: 2016 RE positive July 2019 Eye Exam 01/2022 Surgical History Surgery Date(Month/Year) Colonoscopy 2008, 2013, 2018 Hospitalization History Reason Date(Month/Year) LT Leg Cellulitis- [facility] ER 09/14/2020 RT Leg DVT- [facility] 01/17-03/2007
[2024-11-29 12:26] LABS: INR 3.40 (0.9-1.1); Prothrombin Time 34.5 seconds (10.1-12.5)
== END 2024-11-29 23:59 | disposition home or self-care (01) ==
LOC: LAB 12:05
PROVIDERS: PCP Family Medicine; Visit Provider Family Medicine
DX: Z79.01 Long term (current) use of anticoagulants (principal)
CPT/HCPCS: 36415; 85610

== ENCOUNTER 2024-12-21 10:22 | Outpatient (CLI) | payer MEDICARE, OTHER, SELFPAY ==
--- OUTSIDE RECORDS SUMMARY | 2023-10-22 06:30 | XMS_ITS ---
Author Organization [facility] Address [address] [place] [id number] Care Team Providers Care Dye Tub Operator Name Role Phone Drew Stout Primary Care Provider [phone] Allergies No Known Allergies Results Component [...] Interpretation:satisfactory Performing Lab: Notes/Report: Test performed by [facility], [employer] [address] [place] [address] , [address], [place] [address] Sterling Allen MD, Parts Room Associate CLIA: [id number] Sodium 136 135-145 mmol/L Potassium 4.4 3.5-5.3 [...] Interpretation:Normal Performing Lab: Notes/Report: Test performed by [facility], [address] , [address] , [place] [address] Sterling Allen MD, Parts Room Associate CLIA: [id number] Cholesterol 128 <200 mg/dL Triglycerides 141 <150 [...] Interpretation:Normal Performing Lab: Notes/Report: Test performed by [facility] , [address], [place] [address] Sterling Allen MD, Parts Room Associate CLIA: [id number] PSA 0.45 <4.00 ng/mL Please note this is an ultrasensitive PSA assay with a lower limit of detection of 0.014 ng/mL. This test is performed by the [employer] ECLIA methodology. Values obtained with different assay methods or kits cannot be directly compared. P-TSH reflex to FT4 Reviewed date:10/25/2023 12:10:32 PM Interpretation:Normal Performing Lab: Notes/Report: Test performed by [facility] [employer] [facility] [address] , [address] [place] [id number] Sterling Allen MD, Parts Room Associate CLIA: [id number] TSH reflex to FT4 1.74 0.43-5.25 mU/L P-Microalbumin/Creatinine, R andom Urine Sample Reviewed date:10/25/2023 12:10:32 PM Interpretation:satisfactory Performing Lab: Notes/Report: Test performed by [facility] , [address], [place] [address] Sterling Allen MD, Parts Room Associate CLIA: [id number] Albumin/Creatinine Ratio, Urine See Comment 0-30 ug/mg Unable to calculate Urine Albumin/Creatinine Ratio when urine creatinine or urine albumin fall outside established reportable range. Microalbumin, Urine, Random <0.3 Creatinine, Urine 93.0 P-Uric Acid Reviewed date:10/25/2023 12:10:33 PM Interpretation:Normal Performing Lab: Notes/Report: Test performed by [facility] , [address], [place] [address] Sterling Allen MD, Parts Room Associate CLIA: [id number] Uric Acid 4.5 3.4-8.0 mg/dL P-Vitamin D 25-Hydroxy Reviewed date:10/25/2023 12:10:33 PM Interpretation:Normal Performing Lab: Notes/Report: Test performed by [facility] [address] [place] [address] , [address], [place] [address] Sterling Allen MD, Parts Room Associate CLIA: [id number] Vitamin D 25-Hydroxy 50.8 30.0-100.0 ng/mL Interpretation [...] times a day 10/19/2022 Active Vital Signs Weight 282.4 lbs 10/22/2023 Blood pressure systolic 140 mm Hg 10/22/19 24 Blood pressure diastolic 76 mm Hg 024 Heart Rate 64 /min 10/22/2023 Height 73.50 in 10/22/2023 BMI 36.75 kg/m2 10/22/2023 Encounters Encounter Location Date Provider Diagnosis [facility] [address] [place], [place] [phone] 10/22/2023 Drew Stout Type 2 diabetes andres [...] E66.9 ; Prostate cancer screening Z12.5 and residential current use of anticoagulant Z79.01 Assessments Encounter [...] Prostate cancer screening (ICD-10 - Z12.5) 10/22/2023 residential current us e of anticoagulant (ICD-10 - [...] [address], [place], [phone], Progress Notes * Katlyn STATONDOB:09/1960 (64 yo M)Acc No.[id number]:10/22/2023 Progress Notes Patient: Katlyn CARBAJAL Provider: Alexandre Stout M.D. :1960 A ge:63 Y S ex:Male Date:10/22/2023 Address:[place], [id number] Subjective: * Chief Complaints: * 1 . [...] Diagno stic Procedure: R T Leg DVT- [facility] 01/17-03/2007, LT Leg Cellulitis- [facility] ER 09/14/2020. * Family History: F ather: alive 91 yrs, CABG x4, colon CA. M other: alive 84 yrs, valve repair. P aternal Grand Father: , [place]. P aternal Grand Mother: , alzheimer. M [...] Acid 4.5 3.4-8.0 - mg/dL * Radha Buricagaira 10/25/2023 12:10:0 7 PM > Pt informed [...] 10/25/2023 12:10:0 7 PM > Pt informed 9.?residential current use of anticoagulant?LAB: PT/INR (in house) (Collection Date & Time - 10/22/2023)* Value Reference Range I NR 2.2 * c urrent dose 7.5mg Daily * i deal INR 2-3 * Melani Burciaag 10/22/2023 11:06:1 4 AM > , Provider reviewed results while patient in office. Melani Burciaga 10/25/2023 12:10:07 PM > Pt informed * Procedure Codes: G 2211 Complex e/[place], [address] GLUCOSE TEST, 72315 GLYCATED HEMOGLOBIN TEST, Modifiers: QW , 19271 PROTHROMBIN TIME, Modifiers: QW * Follow Up: 6 Months * Images: Billing Information: * Visit Code: 52740 Office Visit, Est Pt., Level 4. * Procedure Codes: G2211 Complex e/[place]. [address] GLUCOSE TEST. 24229 GLYCATED HEMOGLOBIN TEST. Modifiers: QW 84278 PROTHROMBIN TIME. Modifiers: QW * Electronic signature of Mora Stout MD on 12/21/2024 at 10:34 AM EDT Sign off status: Pending * Provider: Alexandre Stout M.D. Date: 0 10/22/2023 Generated for Andressa carter/Elías/Bradleyransmitting on: 0 12/21/2024 10:34 AM EDT History and Physical Notes * [...]
--- OUTSIDE RECORDS SUMMARY | 2024-04-21 05:15 | XMS_ITS ---
Author Organization [facility] Address [address] [place] [id number] Care Team Providers Care Limousine And Hearse Upholsterer Name Role Phone Drew Stout Primary Care [...] Immunizations Vaccine Route Administration Date Status Comme candelaria Prevnar (PCV20) IM Intramuscular 04/21/2024 Administered Vital Signs Weight 286.6 lbs 04/21/2024 Blood pressure systolic 142 mm Hg 04/21/19 25 Blood pressure diastolic 80 mm Hg 025 Heart Rate 70 /min 04/21/2024 Height 73.50 in 04/21/2024 BMI 37.30 kg/m2 04/21/2024 Encounters Encounter Location Date Provider Diagnosis [facility] [address] [phone] 04/21/2024 Drew Stout Type 2 diabetes andres itus without complication, without long-term current use of insulin E11.9 ; Essential hypertension I10 ; History of DVT of lower extremity Z86.718 ; 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 ; Colon cancer screening Z12.11 and Encounter for immunization Z23 Assessments Encounter Date Diagnosis (ICD Code) Assessment Notes Treatment Notes Treatment Clinical Notes Section Notes 04/21/2024 Type 2 diabetes mellitus without complication, without long-term current use of insulin (ICD-10 - E11.9) 04/21/2024 Essential hypertension (ICD-10 - I10) 04/21/2024 History of DVT of lower extremity (ICD-10 - Z86.718) 04/21/2024 prison current use of anticoagulant (ICD-10 - Z79.01) [...] [address], [place], [phone], Progress Notes * Katlyn STATONDOB:09/1960 (64 yo M)Acc No.[id number]:04/21/2024 Progress Notes Patient: Katlyn CARBAJAL Provider: Alexandre Stout M.D. :1960 A ge:63 Y S ex:Male Date:04/21/2024 Address:[address], [id number] Subjective: * Chief Complaints: * 1 . [...] Diagno stic Procedure: R T Leg DVT- [facility] 01/17-03/2007, LT Leg Cellulitis- [facility] ER 09/14/2020. * Family History: F ather: alive 92 yrs, CABG x4, colon CA. M other: alive 85 yrs, valve repair. P aternal Grand Father: , [place]. P aternal Grand Mother: , alzheimer. M [...] G 2211 Complex e/[place], [address] CAPILLARY BLOOD DRAW, 00361 GLUCOSE TEST, 68536 GLYCATED HEMOGLOBIN TEST, Modifiers: QW , 20495 PROTHROMBIN TIME, Modifiers: QW * Follow Up: 6 Months * Images: Billing Information: * Visit Code: 14598 Office Visit, Est Pt., Level 4. * Procedure Codes: G2211 Complex e/[place]. [address] CAPILLARY BLOOD DRAW. 41316 GLUCOSE TEST. 43737 GLYCATED HEMOGLOBIN TEST. Modifiers: QW 20781 PROTHROMBIN TIME. Modifiers: QW * Electronic signature of Mora Stout MD on 12/21/2024 at 10:33 AM EDT Sign off status: Pending * Provider: Alexandre Stout M.D. Date: 0 04/21/2024 Generated for Andressa carter/Elías/Bradleyransmitting on: 0 12/21/2024 10:33 AM EDT History and Physical Notes * [...]
--- OUTSIDE RECORDS SUMMARY | 2024-06-19 07:00 | XMS_ITS ---
Author Organization [facility] Address [address] [place] [phone] Care Team Providers Care Mirror Silverer Name Role Phone Drew Stout Primary Care Provider Shae Dominguez Unavailable [phone] Allergies No Known Allergies Results Component Value [...] SUPPLIES DIRECTED 02/10/2019 Act aaron Vital Signs Weight 281.2 lbs 06/19/2024 Blood pressure systolic 130 mm Hg 06/20/19 25 Blood pressure diastolic 70 mm Hg 025 Heart Rate 103 /min 06/19/2024 Height 73.50 in 06/19/2024 BMI 36.59 kg/m2 06/19/2024 Encounters Encounter Location Date Provider Diagnosis [facility] [address] [facility] 36 [facility] [address] [place], [place] [phone] 06/19/2024 Shae Dominguez Influenza A J10.1 Assessments [...] Provider Name:Drew mason, 04/23/2025 10:00:00 AM, [address] [facility] 36 [facility], [address], [place], [place], [phone], Progress Notes * Katlyn STATONDOB:09/1960 (64 yo M)Acc No.[id number]:06/19/2024 Progress Notes Patient: Eagle CARBAJALrachana Almaraz Provider: DOMONIQUE Means :1960 A ge:64 Y S ex:Male Date:06/19/2024 Address[address] [id number] Pcp:Drew Stout Subjective: * Chief Complaints: * [...] stic Procedure: R T Leg DVT- [facility] 01/17-03/2007, LT Leg Cellulitis- [facility] ER 09/14/2020. * Family History: F ather: alive 92 yrs, CABG x4, colon CA. M other: alive 85 yrs, valve repair. P aternal Grand Father: , [place]. P aternal Grand Mother: , alzheimer. M [...] G 2211 Complex e/[place], [address] [place], [address] Flu Test- Nasal Swab, Modifiers: QW , G8752 MOST RECENT SYSTOLIC BP < 140MM HG, G8754 MOST RECENT DIASTOLIC BP < 90MM HG * Follow Up: p rn * Images: Billing Information: * Visit Code: 59791 Office Visit, Est Pt., Level 3. * Procedure Codes: G2211 Complex e/[place]. [address] [place]. [address] Flu Test- Nasal Swab. Modifiers: QW G8752 MOST RECENT SYSTOLIC BP < 140MM HG. G8754 MOST RECENT DIASTOLIC BP < 90MM HG. * Electronic signature of Sharlene Dominguez APRN on 12/21/2024 at 10:34 AM EDT Sign off status: Pending * Provider: BARBARA MeansP Date: 0 06/19/2024 Generated for Ericksoni emma/Facherry/eTransmitting on: 0 12/21/2024 10:34 AM EDT History [...]
--- OUTSIDE RECORDS SUMMARY | 2024-10-20 05:00 | XMS_ITS ---
Author Organization [facility] Address [address] [place] [id number] Care Team Providers Care Staff Research Scientist Name Role Phone Drew Stout Primary Care Provider Allergies No Known Allergies Results Component Value Reference Range Notes PT/INR (in house) Reviewed date:10/20/2024 10:45:54 AM Interpretation: Performing Lab: Notes/Report: INR 4.1 current dose 10 mg Daily new dose 7.5 mg daily next check 3 weeks at [facility] ideal INR 2-3 Glucose (In-House) Reviewed date:10/20/2024 10:45:54 AM Interpretation:107 Performing Lab: Notes/Report: 107 blood glucose 107 74 - 106 mg/dL Glycohemoglobin A1c (in hous e) Reviewed date:10/20/2024 10:45:54 AM Interpretation:7.2 Performing Lab: Notes/Report: 7.2 glycohemoglobin 7.2% 5 - 6.5 % P-Comprehensive Metabolic Pa coide (CMP) Reviewed date:10/23/2024 12:47:55 PM Interpretation:gluc 118 Performing Lab: Notes/Report: Test performed by [facility], [employer] [address] [place] [address] , [address], [place] [address] Sterling Allen MD, Industrial Registered Nurse CLIA: [id number] Sodium 139 135-145 mmol/L Potassium 4.4 3.5-5.3 [...] Interpretation:Normal Performing Lab: Notes/Report: Test performed by [facility], [address] , [address], [place] [address] Sterling Allen MD, Industrial Registered Nurse CLIA: [id number] Cholesterol 119 <200 mg/dL Triglycerides 127 <150 [...] Interpretation:Normal Performing Lab: Notes/Report: Test performed by [facility] [address] [place] [address] , [place] [address] Sterling Allen MD, Industrial Registered Nurse CLIA: [id number] PSA 0.54 <4.00 ng/mL Please note this is an ultrasensitive PSA assay with a lower limit of detection of 0.014 ng/mL. This test is performed by the [employer] ECLIA methodology. Values obtained with different assay methods or kits cannot be directly compared. P-TSH reflex to FT4 Reviewed date:10/23/2024 12:47:55 PM Interpretation:Normal Performing Lab: Notes/Report: Test performed by [facility] [address] [place] [address] , [place] [address] Sterling Allen MD, Industrial Registered Nurse CLIA: [id number] TSH reflex to FT4 1.49 0.43-5.25 mU/L P-Microalbumin/Creatinine, R andom Urine Sample Reviewed date:10/23/2024 12:47:55 PM Interpretation:Normal Performing Lab: Notes/Report: Test performed by [facility] [address] [place] [address] , [address], [place] [address] Sterling Allen MD, Industrial Registered Nurse CLIA: [id number] Albumin/Creatinine Ratio, Urine <4.30 0-30 ug/mg Microalbumin, Urine, Random <0.3 Creatinine, Urine 69.7 P-Uric Acid Reviewed date:10/23/2024 12:47:55 PM Interpretation:Normal Performing Lab: Notes/Report: Test performed by [facility] [address] [place] [address] [address]any [address] , [place] [address] Sterling Allen MD, Industrial Registered Nurse CLIA: [id number] Uric Acid 4.2 3.4-8.0 mg/dL P-Vitamin D 25-Hydroxy Reviewed date:10/23/2024 12:47:55 PM Interpretation:42.6 Performing Lab: Notes/Report: Test performed by [facility] [address] [place] [address] [address] , [place] [address] Sterling Allen MD, Industrial Registered Nurse CLIA: [id number] Vitamin D 25-Hydroxy 42.6 30.0-100.0 ng/mL Interpretation [...] mellitus with other specified complication, unspecified whether retirement insulin use (E11.69) Active confirmed Vital Signs Weight 278.2 lbs 10/20/2024 Blood pressure systolic 140 mm Hg 10/21/19 25 Blood pressure diastolic 80 mm Hg 025 Heart Rate 69 /min 10/20/2024 Height 73.50 in 10/20/2024 BMI 36.2 kg/m2 10/20/2024 Encounters Encounter Location Date Provider Diagnosis [facility] [address] [facility] [address] [place], [place] [id number] 10/20/2024 Drew Stout Type 2 diabetes andres itus without complication, without long-term current use of insulin E11.9 ; Essential hypertension, hypertension with unspecified goal I10 ; Mixed hyperlipidemia E78.2 ; Hypertriglyceridemia E78.1 ; Chronic gout without tophus, unspecified cause, unspecified site M1A.[id number] ; Vitamin D deficiency E55.9 ; Prostate cancer screening Z12.5 ; History of DVT of lower extremity Z86.718 ; 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 ; Non morbid obesity E66.9 and Type 2 diabetes mellitus with other specified complication, unspecified whether vermin exterminator insulin use E11.69 Assessments Encounter Date Diagnosis [...] lo wer extremity (ICD-10 - Z86.718) 10/20/2024 supervisor intermediates current us e of anticoagulant (ICD-10 - Z79.01) 10/20/2024 Non morbid obesity (ICD-10 - E66.9) 10/20/2024 Type 2 diabetes andres itus with other specified complication, unspecified whether vermin exterminator insulin use (ICD-10 - E11.69) Plan Of Treatment Next Appt Details Follow Up: 6 Months, Reason: Provider Name:Drew Zuniga ry, 04/23/2025 10:00:00 AM, [address], [address], [place], [place], [id number], Progress Notes * Katlyn STATON SungDOB:09/1960 (64 yo M)Acc No.[id number]:10/20/2024 Progress Notes Patient: Katlyn CARBAJAL Provider: Alexandre Stout M.D. :1960 A ge:64 Y S ex:Male Date:10/20/2024 Address:[facility], [id number] Subjective: * Chief Complaints: * 1 . [...] Diagno stic Procedure: R T Leg DVT- [facility] 01/17-03/2007, LT Leg Cellulitis- [facility] ER 09/14/2020. * Family History: F ather: alive 92 yrs, CABG x4, colon CA. M other: alive 85 yrs, valve repair. P aternal Grand Father: , [place]. P aternal Grand Mother: , alzheimer. M [...] mellitus with other specified complication, unspecified whether retirement insulin use - E11.69 Plan: * Treatment: [...] * n ext check 3 weeks at [facility] * i deal INR 2-3 * Melani Burciaga 10/20/2024 09:31: 18 AM EDT > Provider reviewed results while patient in office. 8.?supervisor intermediates current use of anticoagulant?LAB: PT/INR (in house) (Collection Date & Time - 10/20/2024)* Value Reference Range I NR 4.1 * c urrent dose 10 mg Daily * n ew dose 7.5 mg daily * n ext check 3 weeks at [facility] * i deal INR 2-3 * Melani Burciaga 10/20/2024 09:31: 18 AM EDT > Provider reviewed results while patient in office. * Procedure Codes: G 2211 Complex e/[place], [address] GLUCOSE TEST, 29673 GLYCATED HEMOGLOBIN TEST, Modifiers: QW , 24780 PROTHROMBIN TIME, Modifiers: QW , 3051F HG A1C>EQUAL 7.0%<8.0%, 1036F TOBACCO NON-USER, G8950 PREHTN/HTN BP DOC INDCD F/U DOC, G8753 MOST RECENT SYSTOLIC BP >= 140MM HG, G8754 MOST RECENT DIASTOLIC BP < 90MM HG * Follow Up: 6 Months * Images: Billing Information: * Visit Code: 98967 Office Visit, Est Pt., Level 4. * Procedure Codes: G2211 Complex e/[place]. [address] GLUCOSE TEST. 27821 GLYCATED HEMOGLOBIN TEST. Modifiers: QW 63714 PROTHROMBIN TIME. Modifiers: QW 3051F HG A1C>EQUAL [...] 10/20/2024 Generated for Andressa carter/Elías/Geraitting on: 0 12/21/2024 10:34 AM EDT History [...]
--- OUTSIDE RECORDS SUMMARY | 2024-12-21 10:35 | XMS_ITS | Patient Health Record ---
Author Organization [facility] Address [address] [facility] [address] [place] [id number] Care Team Providers Care Client Professional Name Role Phone Drew Stout Primary Care Provider Shae Dominguez Unavailable [phone] Allergies No Known Allergies Results Component Value [...] mg daily next check 3 weeks at [facility] ideal INR 2-3 Glucose (In-House) Reviewed date:10/20/2024 10:45:54 AM Interpretation:107 Performing Lab: Notes/Report: 107 blood glucose 107 74 - 106 mg/dL Glycohemoglobin A1c (in hous e) Reviewed date:10/20/2024 10:45:54 AM Interpretation:7.2 Performing Lab: Notes/Report: 7.2 glycohemoglobin 7.2% 5 - 6.5 % P-Comprehensive Metabolic Pa codie ([facility]) Reviewed date:10/23/2024 12:47:55 PM Interpretation:gluc 118 Performing Lab: Notes/Report: Test performed by [facility] [address] [place] [address] , [address], [place] [address] Sterling Allen MD, Cnc Lathe Machine Operator CLIA: [id number] Sodium 139 135-145 mmol/L Potassium 4.4 3.5-5.3 [...] Interpretation:Normal Performing Lab: Notes/Report: Test performed by [facility] [address] [place] [address] , [address], [place] [address] Sterling Allen MD, Cnc Lathe Machine Operator CLIA: [id number] Cholesterol 119 <200 mg/dL Triglycerides 127 <150 [...] Interpretation:Normal Performing Lab: Notes/Report: Test performed by [email or web address], [address] , [address], [place] [address] Sterling Allen MD, Cnc Lathe Machine Operator CLIA: [id number] PSA 0.54 <4.00 ng/mL Please note this is an ultrasensitive PSA assay with a lower limit of detection of 0.014 ng/mL. This test is performed by the [employer] ECLIA methodology. Values obtained with different assay methods or kits cannot be directly compared. P-TSH reflex to FT4 Reviewed date:10/23/2024 12:47:55 PM Interpretation:Normal Performing Lab: Notes/Report: Test performed by [email or web address] [address] , [address], [place] [address] Sterling Allen MD, Cnc Lathe Machine Operator CLIA: [id number] TSH reflex to FT4 1.49 0.43-5.25 mU/L P-Microalbumin/Creatinine, R andom Urine Sample Reviewed date:10/23/2024 12:47:55 PM Interpretation:Normal Performing Lab: Notes/Report: Test performed by [email or web address] , [address], [place] [address] Sterling Allen MD, Cnc Lathe Machine Operator CLIA: [id number] Albumin/Creatinine Ratio, Urine <4.30 0-30 ug/mg Microalbumin, Urine, Random <0.3 Creatinine, Urine 69.7 P-Uric Acid Reviewed date:10/23/2024 12:47:55 PM Interpretation:Normal Performing Lab: Notes/Report: Test performed by [email or web address] [address] , [address], [place] [address] Sterling Allen MD, Cnc Lathe Machine Operator CLIA: [id number] Uric Acid 4.2 3.4-8.0 mg/dL P-Vitamin D 25-Hydroxy Reviewed date:10/23/2024 12:47:55 PM Interpretation:42.6 Performing Lab: Notes/Report: Test performed by [email or web address] [address] , [address], [place] [address] Sterling Allen MD, Cnc Lathe Machine Operator CLIA: [id number] Vitamin D 25-Hydroxy 42.6 30.0-100.0 ng/mL Interpretation of Vitamin D 25 OH: < 20 ng/mL - Deficiency 20 - 29 ng/mL - Insufficiency 30 - 100 ng/mL - Sufficiency > 100 ng/mL - Super-therapeutic- toxicity may occur above this level. Clinical correlation required. 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 H-PT/INR Reviewed date:11/30/2024 11:38:37 AM Interpretation: Performing Lab: Notes/Report: PT 34.5 10.1-12.5 seconds INR 3.40 0.9-1.1 INDICATION INR RANGE Therapy for DVT, [...] Date End Date Status Jantoven 5 MG 1 to 2 tablet Orally Once a day MD is aware, pt should continue medications. Active Triamterene-HCTZ 37.5-25 MG 1/2 tab(s) orally once a day; Duration: 90 days Active Vitamin D3 50 MCG (1999 UT) 2.5 cap(s) orally once a day Active CPAP SUPPLIES DIRECTED 02/10/2019 Act aaron Allopurinol 300 MG 1 tablet Orally Once a day; Duration: 90 days Active Jardiance 25 MG 1 tablet Orally Once a day; Duration: 90 days Active Warfarin Sodium 5 MG 1 tablet Orally 3 times a day; Duration: 90 days 12/12/2024 Active Rosuvastatin Calcium 20 MG 1 tablet Orally Once a day; Duration: 90 days Active metFORMIN HCl ER 500 MG 2 tablets orally twice a day; Duration: 90 days Active Enoxaparin Sodium 100 MG/ML 100 mg Injection every 12 hrs; Duration: 7 days 07/24/2024 Active Fenofibrate 150 MG 1 capsule with food Orally Once a day; Duration: 90 days Active Pioglitazone HCl 30 MG 1 tablet Orally Once a day; Duration: 90 days Active Immunizations Vaccine Route Administration Date Status [...] Status Risk Notes Problem Vitamin D deficiency (40280081) Vitamin D deficiency (E55.9) Active confirmed Problem Essential hypertension (80285772) Essential hypertension (I10) Active confirmed Problem Hypertriglyceridemia (935409919) Hypertriglyceridemia (E78.1) Active confirmed Problem History of thromboembolism of vein (827051140) History of DVT of lower extremity (Z86.718) Active confirmed PT/INR order 12/17/20 to 12/17/21 Problem Long-term current us e of anticoagulant (566176879) [facility] current use of anticoagulant (Z79.01) Active confirmed Problem Sebaceous cyst (815292079) Sebaceous cyst (L72.3) Active confirmed Problem Mixed hyperlipidemia (052421265) Mixed hyperlipidemia (E78.2) Active confirmed Problem Obesity (719783183) Non morbid o besity due to excess calories (E66.09) Active confirmed Problem Obstructive sleep apnea syndrome (41629867) Obstructive sleep apnea syndrome (G47.33) Active confirmed Problem Chronic gouty arthritis (43242411) Chronic gout without tophus, unspecified cause, unspecified site (M1A.9XX0) Active confirmed Problem Essential hypertension (03187999) Essential hypertension, hypertension with unspecified goal (I10) Active confirmed Problem Type II diabetes mellitus without complication (950613100) Type 2 diabetes mellitus without complication, without long-term current use of insulin (E11.9) Active confirmed Problem Obesity (486216099) Non morbid o besity (E66.9) Active confirmed Problem Type 2 diabetes mellitus with other specified complication, unspecified whether vermin exterminator insulin use (E11.69) Active confirmed Vital Signs Heart Rate 69 /min 10/20/2024 Blood pressure diastolic 80 mm Hg 10/20/2024 Height 73.50 in 10/20/2024 Blood pressure systolic 140 mm Hg 10/20/2024 Weight 278.2 lbs 10/20/2024 BMI 36.2 kg/m2 10/20/2024 Encounters Encounter Location Date Provider [facility] [address] [id number] 04/21/2024 Drew Stout Type 2 diabetes mellitus without complication, without long-term current use of insulin E11.9 ; Essential hypertension I10 ; History of DVT of lower extremity Z86.718 ; [facility] current use of anticoagulant Z79.01 ; Colon cancer screening Z12.11 and Encounter for immunization Z23 [facility] [address] [place] [id number] 06/19/2024 Shae Dominguez Influenza A J10.1 [facility] [address] [facility] [address] [id number] 10/20/2024 Drew Stout Type 2 diabetes mellitus without complication, without long-term current use of insulin E11.9 ; Essential hypertension, hypertension with unspecified goal I10 ; Mixed hyperlipidemia E78.2 ; Hypertriglyceridemia E78.1 ; Chronic gout without tophus, unspecified cause, unspecified site M1A.9XX0 ; Vitamin D deficiency E55.9 ; Prostate cancer screening Z12.5 ; History of DVT of lower extremity Z86.718 ; vermin exterminator current use of anticoagulant Z79.01 ; Non morbid obesity E66.9 and Type 2 diabetes mellitus with other specified complication, unspecified whether vermin exterminator insulin use E11.69 [facility] [address] [place], [place] [id number] 12/31/2023 Drew Salisbury [facility] [address] [place], [place] [id number] 01/28/2024 Drew Salisbury [facility] [address] [place], [place] [id number] 03/15/2024 Drew Salisbury [facility] [address] [place] [id number] 04/28/2024 Drew Salisbury Type 2 diabetes mellitus without complication, without long-term current use of insulin E11.9 ; Essential hypertension I10 and History of DVT of lower extremity Z86.718 [facility] [address] [place] [id number] 04/28/2024 Drew Salisbury [facility] [address] [place] [id number] 06/05/2024 Drew Salisbury [facility] [address] [place] [id number] 07/07/2024 Drew Salisbury [facility] [address] [place] [id number] 07/18/2024 Drew Salisbury [facility] [address] [place] [id number] 07/21/2024 Drew Salisbury [facility] [address] [place] [id number] 08/14/2024 Drew Salisbury [facility] [address] [place] [id number] 08/29/2024 Drew Salisbury [facility] [address] [place], [place] [id number] 09/27/2024 Drew Salisbury [facility] [address] [place], [place] [id number] 10/23/2024 Drew Salisbury [facility] [address] [place] [id number] 11/16/2024 Drew Salisbury [facility] [address] [place] [id number] 11/29/2024 Derw Salisbury [facility] [address] [place] [id number] 12/04/2024 Drew Salisbury Type 2 diabetes mellitus without complication, without long-term current use of insulin E11.9 ; History of DVT of lower extremity Z86.718 and Essential hypertension I10 [facility] [address] [place], [place] [id number] 12/08/2024 Drew Salisbury [facility] [address] [place], [place] [id number] 12/12/2024 Drew Salisbury Assessments Encounter Date Diagnosis (ICD Code) Assessment [...] current use of insulin (ICD-10 - E11.9) 12/04/2024 Type 2 diabetes andres itus without complication, without long-term current use of insulin (ICD-10 - E11.9) 12/04/2024 History of DVT of lo wer extremity (ICD-10 - Z86.718) 10/20/2024 Mixed hyperlipidemia (ICD-10 - E78.2) 04/28/2024 Essential hypertensi on (ICD-10 - I10) 04/21/2024 History of DVT of lo wer extremity (ICD-10 - Z86.718) 04/21/2024 vermin exterminator current us e of anticoagulant (ICD-10 - Z79.01) 04/28/2024 History of DVT of lo wer extremity (ICD-10 - Z86.718) 10/20/2024 Hypertriglyceridemia (ICD-10 - E78.1) 12/04/2024 Essential hypertensi on (ICD-10 - I10) 04/21/2024 Colon cancer screeni ng (ICD-10 - Z12.11) 10/20/2024 Chronic gout without tophus, unspecified cause, unspecified site (ICD-10 - M1A.9XX0) 04/21/2024 Encounter for immunization (ICD-10 - Z23) 10/20/2024 Vitamin D deficiency (ICD-10 - E55.9) 10/20/2024 Prostate cancer screening (ICD-10 - Z12.5) 10/20/2024 History of DVT of lo wer extremity (ICD-10 - Z86.718) 10/20/2024 vermin exterminator current us e of anticoagulant (ICD-10 - Z79.01) 10/20/2024 Non morbid obesity (ICD-10 - E66.9) 10/20/2024 Type 2 diabetes andres itus with other specified complication, unspecified whether residential insulin use (ICD-10 - E11.69) Plan Of Treatment Next Appt Details Provider Name:Drew mason, 04/23/2025 10:00:00 AM, [address], [address], [place], [id number], Insurance Providers Payer Name Payer Address Payer Phone Subscriber Number Group Number Insured Name Patient Relationship to Insured Coverage Start Date Coverage End Date MEDICARE PART B [address] [address] [place] [address] [phone] [id number] Katlyn Staton Self - patient is the insured [employer] [address] [address] [place] [id number] Katlyn Staton Self - patient is the insured Medical (General) History Medical History History ICD Code Type 2 Diabetes DVT, Protein S deficiency Hypertriglyceridemia Hyperuricemia Colon polyps, needs colonoscopy every 5 years Testosterone deficiency Vitamin D deficiency sleep apnea, Dx: 2015 RE positive July 2019 Eye Exam 01/2022 Surgical History Surgery Date(Month/Year) Colonoscopy 2008, 2013, 2018 Hospitalization History Reason Date(Month/Year) LT Leg Cellulitis- [facility] ER 09/14/2020 RT Leg DVT- [facility] 01/17-03/2007
[2024-12-21 10:50] LABS: INR 3.75 (0.9-1.1); Prothrombin Time 37.7 seconds (10.1-12.5)
== END 2024-12-21 23:59 | disposition home or self-care (01) ==
LOC: LAB 10:23
PROVIDERS: PCP Family Medicine; Visit Provider Family Medicine
DX: Z79.01 Long term (current) use of anticoagulants (principal)
CPT/HCPCS: 36415; 85610

== ENCOUNTER 2025-01-01 10:19 | Outpatient (CLI) | payer MEDICARE, OTHER, SELFPAY ==
[2025-01-01 11:21] LABS: Albumin Level 4.3 g/dl (3.5-5.0); Chloride 103 mmol/L (98-107); Potassium 4.5 mmoL/L (3.5-5.1); Sodium 141 mmol/L (136-145)
[2025-01-01 11:24] LABS: Alanine Aminotransferase 37 U/L (12-78); Albumin/Globulin Ratio 1.5 (1.1-1.8); Alkaline Phosphatase 54 U/L (38-126); Aspartate Amino Transferase 32 U/L (17-59); Bilirubin,Total 0.6 mg/dl (0.2-1.3); Blood Urea Nitrogen 19 mg/dl (9-20); Calcium 9.5 mg/dl (8.4-10.2); Creatinine,Serum 1.00 mg/dl (0.66-1.25); Estimated Glomerular Filt Rate 75 ml/min (>60); GFR (African American) 90 ML/MIN (>60); Globulin 2.9 g/dL (1.3-3.2); Glucose 126 mg/dl (74-100); Total Protein,Serum 7.2 g/dl (6.3-8.2)
[2025-01-01 12:27] LABS: Anion Gap 15.5 mEq/L (5-15); Carbon Dioxide 27 mmol/L (22.0-30.0)
== END 2025-01-01 23:59 | disposition home or self-care (01) ==
LOC: LAB 10:20
PROVIDERS: PCP Family Medicine; Visit Provider Nurse Practitioner Family
DX: K76.0 Fatty (change of) liver, not elsewhere classified (principal)
CPT/HCPCS: 36415; 80053

== ENCOUNTER 2025-02-08 10:42 | Outpatient (CLI) | payer MEDICARE, OTHER, SELFPAY ==
--- OUTSIDE RECORDS SUMMARY | 2023-10-22 06:30 | XMS_ITS ---
Author Organization [facility] Address [address] [place] [id number] Care Team Providers Care Racing Manager Name Role Phone Drew Stout Primary Care Provider [phone] Allergies No Known Allergies Results Component Value Reference Range Notes PT/INR (in house) Reviewed date:10/25/2023 12:10:33 PM Interpretation: Performing Lab: Notes/Report: INR 2.2 current dose 7.5mg Daily ideal INR 2-3 Glucose (In-House) Reviewed date:10/22/2023 11:48:11 AM Interpretation: Performing Lab: Notes/Report: blood glucose 157 74 - 106 mg/dL Glycohemoglobin A1c (in hous e) Reviewed date:10/22/2023 11:48:02 AM Interpretation: Performing Lab: Notes/Report: glycohemoglobin 7.1% 5 - 6.5 % P-Comprehensive Metabolic Pa codie (CMP) Reviewed date:10/25/2023 12:10:32 PM Interpretation:satisfactory Performing Lab: Notes/Report: Test performed by [facility], [facility] [address] [place] [address] , [address], [place] [address] Sterling Allen MD, Compressor Operator Portable CLIA: [id number] Sodium 136 135-145 mmol/L Potassium 4.4 3.5-5.3 mmol/L Chloride 102 97-108 mmol/L CO2 22 22-32 mmol/L Glucose 113 65-99 mg/dL BUN 18 8-23 mg/dL Creatinine 1.18 0.70-1.30 mg/dL Calcium 9.4 8.6-10.4 mg/dL eGFR by Creatinine 68 >59 mL/min/1.73m2 Protein 7.0 6.0-8.3 g/dL Albumin 4.4 3.5-5.3 g/dL Alkaline Phosphatase 54 40-129 IU/L ALT (SGPT) 19 <5-55 IU/L AST (SGOT) 17 <5-46 IU/L Bilirubin, Total 0.6 <0.2-1.2 mg/dL A/G Ratio 1.7 1.1-2.5 mg/dL P-Lipid Panel Reviewed date:10/25/2023 12:10:32 PM Interpretation:Normal Performing Lab: Notes/Report: Test performed by [facility], [address] , [address] , [place] [address] Sterling Allen MD, Compressor Operator Portable CLIA: [id number] Cholesterol 128 <200 mg/dL Triglycerides 141 <150 mg/dL HDL Cholesterol 41 >39 mg/dL Cholesterol / HDL Ratio 3.12 0.00-4.99 Ratio Non-HDL Cholesterol 87 <130 mg/dL LDL Cholesterol (Calculation) 59 <130 mg/dL LDL Cholesterol Levels* Less than 100 mg/dL Optimal 100 to 129 mg/dL Near Optimal/ Above Optimal 130 to 159 mg/dL Borderline High 160 to 189 mg/dL High 190 mg/dL and above Very High * Categories as recommended by the 2004 ATPIII guidelines LDL/HDL Ratio 1.4 <3.3 Ratio LDL Cholesterol Patient History Test Date: 10/22/2023 LDL Results: 59 Units: mg/dL % Change: - P-PSA Reviewed date:10/25/2023 12:10:32 PM Interpretation:Normal Performing Lab: Notes/Report: Test performed by [facility] , [address], [place] [address] Sterling Allen MD, Compressor Operator Portable CLIA: [id number] PSA 0.45 <4.00 ng/mL Please note this is an ultrasensitive PSA assay with a lower limit of detection of 0.014 ng/mL. This test is performed by the [employer] ECLIA methodology. Values obtained with different assay methods or kits cannot be directly compared. P-TSH reflex to FT4 Reviewed date:10/25/2023 12:10:32 PM Interpretation:Normal Performing Lab: Notes/Report: Test performed by [facility] [address] , [place] [id number] Sterling Allen MD, Compressor Operator Portable CLIA: [id number] TSH reflex to FT4 1.74 0.43-5.25 mU/L P-Microalbumin/Creatinine, R andom Urine Sample Reviewed date:10/25/2023 12:10:32 PM Interpretation:satisfactory Performing Lab: Notes/Report: Test performed by [facility] , [address], [place] [address] Sterling Allen MD, Compressor Operator Portable CLIA: [id number] Albumin/Creatinine Ratio, Urine See Comment 0-30 ug/mg Unable to calculate Urine Albumin/Creatinine Ratio when urine creatinine or urine albumin fall outside established reportable range. Microalbumin, Urine, Random <0.3 Creatinine, Urine 93.0 P-Uric Acid Reviewed date:10/25/2023 12:10:33 PM Interpretation:Normal Performing Lab: Notes/Report: Test performed by [facility] , [address], [place] [address] Sterling Allen MD, Compressor Operator Portable CLIA: [id number] Uric Acid 4.5 3.4-8.0 mg/dL P-Vitamin D 25-Hydroxy Reviewed date:10/25/2023 12:10:33 PM Interpretation:Normal Performing Lab: Notes/Report: Test performed by [facility] [address] [place] [address] , [address], [place] [address] Sterling Allen MD, Compressor Operator Portable CLIA: [id number] Vitamin D 25-Hydroxy 50.8 30.0-100.0 ng/mL Interpretation of Vitamin D 25 OH: < 20 ng/mL - Deficiency 20 - 29 ng/mL - Insufficiency 30 - 100 ng/mL - Sufficiency > 100 ng/mL - Super-therapeutic- toxicity may occur above this level. Clinical correlation required. REASON FOR VISIT 6 month check up Medications Medication SIG (Take, Route, Frequency, Duration) Notes Start Date End Date Status Rosuvastatin Calcium 20 MG 1 tab(s) oral ly once a day Active Vitamin D3 50 MCG (1999) 2.5 cap(s) o rally once a day Active Lipofen 150 MG 1 cap(s) orally once a day Active Triamterene-HCTZ 37.5-25 MG 1/2 tab(s) o rally once a day Active Allopurinol 300 MG 1 tab(s) orally once a day Active Pioglitazone HCl 30 MG 1 tablet Orally O nce a day 10/19/2022 Active CPAP SUPPLIES DIRECTED 02/10/2019 Act aaron Jardiance 25 MG TAKE 1 TABLET EVERY MORNING Active Jantoven 5 MG TAKE 1 TO 2 TABLETS ONCE DAILY; Duration: 90 days Active metFORMIN HCl ER 500 MG 2 tabs Orally Tw o times a day 10/19/2022 Active Vital Signs Blood pressure systolic 140 mm Hg 10/22/19 24 Blood pressure diastolic 76 mm Hg 024 Heart Rate 64 /min 10/22/2023 Height 73.50 in 10/22/2023 Weight 282.4 lbs 10/22/2023 BMI 36.75 kg/m2 10/22/2023 Encounters Encounter Location Date Provider Diagnosis [facility] [address] [place], [place] [id number] 10/22/2023 Drew Stout Type 2 diabetes andres itus without complication, without long-term current use of insulin E11.9 ; Essential hypertension, hypertension with unspecified goal I10 ; Mixed hyperlipidemia E78.2 ; Hypertriglyceridemia E78.1 ; Chronic gout without tophus, unspecified cause, unspecified site M1A.9XX0 ; Vitamin D deficiency E55.9 ; Obstructive sleep apnea syndrome G47.33 ; Non morbid obesity E66.9 ; Prostate cancer screening Z12.5 and snf current use of anticoagulant Z79.01 Assessments Encounter Date Diagnosis (ICD Code) Assessment Notes Treatment Notes Treatment Clinical Notes Section Notes 10/22/2023 Type 2 diabetes andres itus without complication, without long-term current use of insulin (ICD-10 - E11.9) 10/22/2023 Essential hypertensi on, hypertension with unspecified goal (ICD-10 - I10) 10/22/2023 Mixed hyperlipidemia (ICD-10 - E78.2) 10/22/2023 Hypertriglyceridemia (ICD-10 - E78.1) 10/22/2023 Chronic gout without tophus, unspecified cause, unspecified site (ICD-10 - M1A.9XX0) 10/22/2023 Vitamin D deficiency (ICD-10 - E55.9) 10/22/2023 Obstructive sleep ap marco a syndrome (ICD-10 - G47.33) 10/22/2023 Non morbid obesity (ICD-10 - E66.9) 10/22/2023 Prostate cancer screening (ICD-10 - Z12.5) 10/22/2023 snf current us e of anticoagulant (ICD-10 - Z79.01) Plan Of Treatment Medication Medication Name Sig Start Date Stop Date Notes Rosuvastatin Calcium 20 MG 1 tab(s) orally once a day Vitamin D3 50 MCG (1999 UT) 2.5 cap(s) orally once a day Lipofen 150 MG 1 cap(s) orally once a day Triamterene-HCTZ 37.5-25 MG 1/2 tab(s) orally once a day Allopurinol 300 MG 1 tab(s) orally once a day Pioglitazone HCl 30 MG 1 tablet Orally Once a day 10/20/19 23 CPAP SUPPLIES DIRECTED 02/10/2019 Jardiance 25 MG TAKE 1 TABLET EVERY MORNING metFORMIN HCl ER 500 MG 2 tabs Orally Two times a day 10/10 Next Appt Details Follow Up: 6 Months, Reason: Provider Name:Drew Zuniga ry, 04/23/2025 10:00:00 AM, [address], [address], [place], [phone], Progress Notes * Katlyn STATONDOB:09/1960 (64 yo M)Acc No.[id number]:10/22/2023 Progress Notes Patient: Katlyn CARBAJAL Provider: Alexandre Stout M.D. :1960 A ge:63 Y S ex:Male Date:10/22/2023 Address:[place], [id number] Subjective: * Chief Complaints: * 1 . 6 month check up. * HPI: C ardiology: 63 year old male presents with c/o Blood Pressure Elevated P t here for 6 mo f/u on hypertension, states he is doing well and does not have any concerns. c/o Hyperlipidemia P t is fasting today. E ndocrinology: c/o Recent Blood Sugars P t here to f/u on DM 2, states he does not check blood sugar at home. Pt states he is doing well and does not have any concerns. E NT/respiratory: Sleep Study: P t sts that he is using his CPAP. * ROS: D ERMATOLOGY: no R bobby. n o H kirby. G ASTROENTEROLOGY: no N ausea. n o V omiting. U ROLOGY: no D ifficulty urinating. n o B lood in urine. * Medical History: T ype 2 Diabetes, DVT, Protein S deficiency, Hypertriglyceridemia, Hyperuricemia, Colon polyps, needs colonoscopy every 5 years, Testosterone deficiency, Vitamin D deficiency, sleep apnea, Dx: 2016, RE positive July 2019, Eye Exam 01/2022. * Surgical History: C olonoscopy 2008, 2013, 2018. * Hospitalization/Major Diagno stic Procedure: R T Leg DVT- [facility] 01/17-03/2007, LT Leg Cellulitis- [facility] ER 09/14/2020. * Family History: F ather: alive 91 yrs, CABG x4, colon CA. M other: alive 84 yrs, valve repair. P aternal Grand Father: , [place]. P aternal Grand Mother: , alzheimer. M aternal Grand Father: , prostate CA. M aternal Grand Mother: alive, alzheimer. S iblings: sister age 8 of brain tumor. 1 sister(s) . 2 son(s) - healthy. . * Social History: C URRENT TOBACCO USE S moking Status: Patient does NOT smoke. C affeine: yes, frequency:. Exercise: no. Home smoke detector use: no. Marital Status: . New since last visit: none. Past smoking status: no. Occup. exposure: none. Recreational drug use: no. Alcohol: no. Sexually active: yes. Travel ouside [place]: no. * Medications: T aking Vitamin D3 50 MCG (1999 UT) Capsule 2.5 cap(s) orally once a day , Taking CPAP SUPPLIES DIRECTED , Taking Pioglitazone HCl 30 MG Tablet 1 tablet Orally Once a day , Taking metFORMIN HCl ER 500 MG Tablet Extended Release 24 Hour 2 tabs Orally Two times a day , Taking Jardiance 25 MG Tablet TAKE 1 TABLET EVERY MORNING , Taking Allopurinol 300 MG Tablet 1 tab(s) orally once a day , Taking Lipofen 150 MG Capsule 1 cap(s) orally once a day , Taking Rosuvastatin Calcium 20 MG Tablet 1 tab(s) orally once a day , Taking Jantoven 5 MG Tablet TAKE 1 TO 2 TABLETS ONCE DAILY , Taking Triamterene-HCTZ 37.5-25 MG Tablet 1/2 tab(s) orally once a day , Medication List reviewed and reconciled with the patient * Allergies: N .K.D.A. Objective: * Vitals: W t:282.4, Temp:97.8, BP:140/76, HR:64, Nurse:vicki, Ht: 73.50, BMI:36.75. * Examination: C ardiology: General Appearance: p leasant, NAD. H EENT: u nremarkable. H eart sounds: R RR, normal S1, S2. L ungs: c lear, no rales or wheezes.?Extremities: t race right leg edema, no left leg edema. P eripheral pulses: 2 plus bilateral. Assessment: * Assessment: 1. T ype 2 diabetes mellitus without complication, without long-term current use of insulin - E11.9 (Primary) 2 . E ssential hypertension, hypertension with unspecified goal - I10 3 . M ixed hyperlipidemia - E78.2 4 . H ypertriglyceridemia - E78.1 5 . C hronic gout without tophus, unspecified cause, unspecified site - M1A.9XX0 6 . V itamin D deficiency - E55.9 7 . O bstructive sleep apnea syndrome - G47.33 8 . N on morbid obesity - E66.9 9. P rostate cancer screening - Z12.5 1 0. L anibal term current use of anticoagulant - Z79.01 Plan: * Treatment: Value Reference Range A /G Ratio 1.7 1.1-2.5 - mg/dL * A lbumin 4.4 3.5-5.3 - g/dL * A lkaline Phosphatase 54 40-129 - IU/L * A LT (SGPT) 19 <5-55 - IU/L * A ST (SGOT) 17 <5-46 - IU/L * B ilirubin, Total 0.6 <0.2-1.2 - mg/dL * B UN 18 8-23 - mg/dL * C alcium 9.4 8.6-10.4 - mg/dL * C hloride 102 97-108 - mmol/L * C O2 22 22-32 - mmol/L * C reatinine 1.18 0.70-1.30 - mg/dL * G lucose 113 H 65-99 - mg/dL * P otassium 4.4 3.5-5.3 - mmol/L * S odium 136 135-145 - mmol/L * P rotein 7.0 6.0-8.3 - g/dL * e GFR by Creatinine 68 >59 - mL/min/1.73m2 * Melani Burciaga 10/25/2023 12:10:0 7 PM > Pt informed ?LAB: P-TSH reflex to FT4 (Collection Date & Time - 10/22/2023 09:52 AM)? Normal* Value Reference Range T SH reflex to FT4 1.74 0.43-5.25 - mU/L * Melani Burciaga 10/25/2023 12:10:0 7 PM > Pt informed ?LAB: P-Microalbumin/Creatinine, Random Urine Sample (Collection Date & Time - 10/22/2023 09:52 AM)?satisfactory* Value Reference Range A lbumin/Creatinine Ratio, Urine See Comment L 0-30 - ug /mg * C reatinine, Urine 93.0 - mg/dL * M icroalbumin, Urine, Random <0.3 - mg/dL * Melani Burciaga 10/25/2023 12:10:0 7 PM > Pt informed ?LAB: Glucose (In-House) (Collection Date & Time - 10/22/2023)* Value Reference Range b lood glucose 157 74 - 106 mg/dL * Melani Burciaga 10/22/2023 11:06:3 2 AM > , Provider reviewed results while patient in office. ?LAB: Glycohemoglobin A1c (in house) (Collection Date & Time - 10/22/2023)* Value Reference Range g lycohemoglobin 7.1% 5 - 6.5 % * Melani Burciaga 10/22/2023 11:06:5 6 AM > , Provider reviewed results while patient in office. 2.?Essential hypertension, hypertension with unspecified goal? Continue Triamterene-HCTZ Tablet, 37.5-25 MG, 1/2 tab(s), orally, once a day.?LAB: P-Comprehensive Metabolic Panel (CMP) (Collection Date & Time - 10/22/2023 09:52 AM)?satisfactory* Value Reference Range A /G Ratio 1.7 1.1-2.5 - mg/dL * A lbumin 4.4 3.5-5.3 - g/dL * A lkaline Phosphatase 54 40-129 - IU/L * A LT (SGPT) 19 <5-55 - IU/L * A ST (SGOT) 17 <5-46 - IU/L * B ilirubin, Total 0.6 <0.2-1.2 - mg/dL * B UN 18 8-23 - mg/dL * C alcium 9.4 8.6-10.4 - mg/dL * C hloride 102 97-108 - mmol/L * C O2 22 22-32 - mmol/L * C reatinine 1.18 0.70-1.30 - mg/dL * G lucose 113 H 65-99 - mg/dL * P otassium 4.4 3.5-5.3 - mmol/L * S odium 136 135-145 - mmol/L * P rotein 7.0 6.0-8.3 - g/dL * e GFR by Creatinine 68 >59 - mL/min/1.73m2 * Melani Burciaga 10/25/2023 12:10:0 7 PM > Pt informed 3.?Mixed hyperlipidemia? Continue Rosuvastatin Calcium Tablet, 20 MG, 1 tab(s), orally, once a day.?LAB: P-Comprehensive Metabolic Panel (CMP) (Collection Date & Time - 10/22/2023 09:52 AM)?satisfactory* Value Reference Range A /G Ratio 1.7 1.1-2.5 - mg/dL * A lbumin 4.4 3.5-5.3 - g/dL * A lkaline Phosphatase 54 40-129 - IU/L * A LT (SGPT) 19 <5-55 - IU/L * A ST (SGOT) 17 <5-46 - IU/L * B ilirubin, Total 0.6 <0.2-1.2 - mg/dL * B UN 18 8-23 - mg/dL * C alcium 9.4 8.6-10.4 - mg/dL * C hloride 102 97-108 - mmol/L * C O2 22 22-32 - mmol/L * C reatinine 1.18 0.70-1.30 - mg/dL * G lucose 113 H 65-99 - mg/dL * P otassium 4.4 3.5-5.3 - mmol/L * S odium 136 135-145 - mmol/L * P rotein 7.0 6.0-8.3 - g/dL * e GFR by Creatinine 68 >59 - mL/min/1.73m2 * Melani Burciaga 10/25/2023 12:10:0 7 PM > Pt informed ?LAB: P-Lipid Panel (Collection Date & Time - 10/22/2023 09:52 AM)?Normal* Value Reference Range C holesterol / HDL Ratio 3.12 0.00-4.99 - Ratio * C holesterol 128 <200 - mg/dL * H DL Cholesterol 41 >39 - mg/dL * L DL Cholesterol (Calculation) 59 <130 - mg/d L * L DL/HDL Ratio 1.4 <3.3 - Ratio * N on-HDL Cholesterol 87 <130 - mg/dL * T riglycerides 141 <150 - mg/dL * Melani Burciaga 10/25/2023 12:10:0 7 PM > Pt informed 4.?Hypertriglyceridemia? Continue Lipofen Capsule, 150 MG, 1 cap(s), orally, once a day.??5.?Chronic gout without tophus, unspecified cause, unspecified site? Continue Allopurinol Tablet, 300 MG, 1 tab(s), orally, once a day.?LAB: P-Uric Acid (Collection Date & Time - 10/22/2023 09:52 AM)?Normal* Value Reference Range U igor Acid 4.5 3.4-8.0 - mg/dL * Radha Burciagaira 10/25/2023 12:10:0 7 PM > Pt informed 6.?Vitamin D deficiency? Continue Vitamin D3 Capsule, 50 MCG (1999 UT), 2.5 cap(s), orally, once a day.?LAB: P-Vitamin D 25-Hydroxy (Collection Date & Time - 10/22/2023 09:52 AM)? Normal* Value Reference Range V itamin D 25-Hydroxy 50.8 30.0-100.0 - ng/mL * Radha Burciagaira 10/25/2023 12:10:0 7 PM > Pt informed 7.?Obstructive sleep apnea syndrome? Refill CPAP SUPPLIES, DIRECTED, 1, Refills 0.??8.?Prostate cancer screening?LAB: P-PSA (Collection Date & Time - 10/22/2023 09:52 AM)?Normal* Value Reference Range P SA 0.45 <4.00 - ng/mL * Melani Burciaga 10/25/2023 12:10:0 7 PM > Pt informed 9.?intermediate designer current use of anticoagulant?LAB: PT/INR (in house) (Collection Date & Time - 10/22/2023)* Value Reference Range I NR 2.2 * c urrent dose 7.5mg Daily * i deal INR 2-3 * Melani Burciaga 10/22/2023 11:06:1 4 AM > , Provider reviewed results while patient in office. Melani Burciaga 10/25/2023 12:10:07 PM > Pt informed * Procedure Codes: G 2211 Complex e/[place], [address] GLUCOSE TEST, 14150 GLYCATED HEMOGLOBIN TEST, Modifiers: QW , 31630 PROTHROMBIN TIME, Modifiers: QW * Follow Up: 6 Months * Images: Billing Information: * Visit Code: 42578 Office Visit, Est Pt., Level 4. * Procedure Codes: G2211 Complex e/[place]. [address] GLUCOSE TEST. 96858 GLYCATED HEMOGLOBIN TEST. Modifiers: QW 03822 PROTHROMBIN TIME. Modifiers: QW * Electronic signature of Mora Stout MD on 02/08/2025 at 11:03 AM EDT Sign off status: Pending * Provider: Alexandre Stout M.D. Date: 0 10/22/2023 Generated for Andressa crater/Elías/Bradleyransmitting on: 1 11:03 AM EDT History and Physical Notes * HPI (History of Present Illness) Category Sub-Category Detail Notes Category Not es ENT/respiratory Sleep Study: Pt sts that he i s using his CPAP Endocrinology Recent Blood Sugars Pt here to f /u on DM 2, states he does not check blood sugar at home. Pt states he is doing well and does not have any concerns Cardiology Blood Pressure Elevated Pt here for 6 mo f/u on hypertension, states he is doing well and does not have any concerns Hyperlipidemia Pt is fasting today Examination Category Sub-Category Detail Notes Category Not es Cardiology Lungs: clear, no rales or wheezes HEENT: unremarkable Heart sounds: RRR, normal S1, S2 Extremities: trace right leg melissa a, no left leg edema Peripheral pulses: 2 plus bilateral General Appearance: pleasant, NAD
--- OUTSIDE RECORDS SUMMARY | 2024-04-21 05:15 | XMS_ITS ---
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 ; Colon cancer screening Z12.11 and Encounter for immunization Z23 Assessments Encounter Date Diagnosis (ICD Code) Assessment Notes Treatment Notes Treatment Clinical Notes Section Notes 04/21/2024 Type 2 diabetes mellitus without complication, without long-term current use of insulin (ICD-10 - E11.9) 04/21/2024 Essential hypertension (ICD-10 - I10) 04/21/2024 History of DVT of lower extremity (ICD-10 - Z86.718) 04/21/2024 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 :1960 A ge:63 Y S ex:Male Date:04/21/2024 Address:[address], [id number] Subjective: * Chief Complaints: * 1 . [...] Diagno stic Procedure: R T Leg DVT- [facility] 01/17-03/2007, LT Leg Cellulitis- [facility] ER 09/14/2020. * Family History: F ather: alive 92 yrs, CABG x4, colon CA. M other: alive 85 yrs, valve repair. P aternal Grand Father: , [place]. P aternal Grand Mother: , alzheimer. M [...] G 2211 Complex e/[place], [address] CAPILLARY BLOOD DRAW, 94017 GLUCOSE TEST, 56749 GLYCATED HEMOGLOBIN TEST, Modifiers: QW , 38092 PROTHROMBIN TIME, Modifiers: QW * Follow Up: 6 Months * Images: Billing Information: * Visit Code: 22187 Office Visit, Est Pt., Level 4. * Procedure Codes: G2211 Complex e/[place]. [address] CAPILLARY BLOOD DRAW. 15319 GLUCOSE TEST. 13148 GLYCATED HEMOGLOBIN TEST. Modifiers: QW 83680 PROTHROMBIN TIME. Modifiers: QW * Electronic signature of Mora Stout MD on 02/08/2025 at 11:03 AM EDT Sign off status: Pending * Provider: Alexandre Stout M.D. Date: 0 04/21/2024 Generated for Andressa carter/Elías/Bradleyransmitting on: 11:03 AM EDT History and Physical Notes [...]
--- OUTSIDE RECORDS SUMMARY | 2024-06-19 07:00 | XMS_ITS ---
Author Organization [facility] Address [address] [place] [phone] Care Team Providers Care Tissue Packer Name Role Phone Drew Stout Primary Care Provider Shae Dominguez Unavailable [phone] Allergies No Known Allergies Results Component Value [...] 06/19/2024 Encounters Encounter Location Date Provider Diagnosis [facility] [address] [facility] 36 [facility] [address] [place], [place] [phone] 06/19/2024 Shae Dominguez Influenza A J10.1 Assessments [...] Provider Name:Drew mason, 04/23/2025 10:00:00 AM, [address] [facility] 36 [facility], [address], [place], [place], [phone], Progress Notes * Katlyn STATONDOB:09/1960 (64 yo M)Acc No.[id number]:06/19/2024 Progress Notes Patient: Eagle CARBAJALrachana Almaraz Provider: DOMONIQUE Means :1960 A ge:64 Y S ex:Male Date:06/19/2024 Address:[address] [id number] Pcp:Drew Stout Subjective: * Chief Complaints: * [...] Procedure: R T Leg DVT- [facility] 01/17-03/2007, LT Leg Cellulitis- [facility] ER 09/14/2020. * Family History: F ather: alive 92 yrs, CABG x4, colon CA. M other: alive 85 yrs, valve repair. P aternal Grand Father: , [place]. P aternal Grand Mother: , alzheimer. M [...] G 2211 Complex e/[place], [address] [place], [address] Flu Test- Nasal Swab, Modifiers: QW , G8752 MOST RECENT SYSTOLIC BP < 140MM HG, G8754 MOST RECENT DIASTOLIC BP < 90MM HG * Follow Up: p rn * Images: Billing Information: * Visit Code: 04781 Office Visit, Est Pt., Level 3. * Procedure Codes: G2211 Complex e/[place]. [address] [place]. [address] Flu Test- Nasal Swab. Modifiers: QW G8752 MOST RECENT SYSTOLIC BP < 140MM HG. G8754 MOST RECENT DIASTOLIC BP < 90MM HG. * Electronic signature of Sharlene Dominguez APRN on 02/08/2025 at 11:03 AM EDT Sign off status: Pending * Provider: DOMONIQUE Means Date: 0 06/19/2024 Generated for Andressa carter/Elías/eTransmitting on: 1 11:03 AM EDT History and [...]
--- OUTSIDE RECORDS SUMMARY | 2024-10-20 05:00 | XMS_ITS ---
Author Organization [facility] Address [address] [place] [id number] Care Team Providers Care Sergeant Missile Crewman Name Role Phone Drew Stout Primary Care Provider [phone] Allergies No Known Allergies Results Component Value Reference Range Notes PT/INR (in house) Reviewed date:10/20/2024 10:45:54 AM Interpretation: Performing Lab: Notes/Report: INR 4.1 current dose 10 mg Daily new dose 7.5 mg daily next check 3 weeks at [facility] ideal INR 2-3 Glucose (In-House) Reviewed date:10/20/2024 10:45:54 AM Interpretation:107 Performing Lab: Notes/Report: 107 blood glucose 107 74 - 106 mg/dL Glycohemoglobin A1c (in hous e) Reviewed date:10/20/2024 10:45:54 AM Interpretation:7.2 Performing Lab: Notes/Report: 7.2 glycohemoglobin 7.2% 5 - 6.5 % P-Comprehensive Metabolic Pa codie (CMP) Reviewed date:10/23/2024 12:47:55 PM Interpretation:gluc 118 Performing Lab: Notes/Report: Test performed by [facility], [facility] [address] [place] [address] , [address], [place] [address] Sterling Allen MD, Dump Motor Operator CLIA: [id number] Sodium 139 135-145 mmol/L Potassium 4.4 3.5-5.3 [...] Interpretation:Normal Performing Lab: Notes/Report: Test performed by [facility], [address] , [address], [place] [address] Sterling Allen MD, Dump Motor Operator CLIA: [id number] Cholesterol 119 <200 mg/dL Triglycerides 127 <150 [...] Interpretation:Normal Performing Lab: Notes/Report: Test performed by [facility] [address] [place] [address] , [place] [address] Sterling Allen MD, Dump Motor Operator CLIA: [id number] PSA 0.54 <4.00 ng/mL Please note this is an ultrasensitive PSA assay with a lower limit of detection of 0.014 ng/mL. This test is performed by the [employer] ECLIA methodology. Values obtained with different assay methods or kits cannot be directly compared. P-TSH reflex to FT4 Reviewed date:10/23/2024 12:47:55 PM Interpretation:Normal Performing Lab: Notes/Report: Test performed by [facility] [address] [place] [address] , [place] [address] Sterling Allen MD, Dump Motor Operator CLIA: [id number] TSH reflex to FT4 1.49 0.43-5.25 mU/L P-Microalbumin/Creatinine, R andom Urine Sample Reviewed date:10/23/2024 12:47:55 PM Interpretation:Normal Performing Lab: Notes/Report: Test performed by [facility] [address] [place] [address] , [address], [place] [address] Sterling Allen MD, Dump Motor Operator CLIA: [id number] Albumin/Creatinine Ratio, Urine <4.30 0-30 ug/mg Microalbumin, Urine, Random <0.3 Creatinine, Urine 69.7 P-Uric Acid Reviewed date:10/23/2024 12:47:55 PM Interpretation:Normal Performing Lab: Notes/Report: Test performed by [facility] [address] [place] [address] [address]any [address] , [place] [address] Sterling Allen MD, Dump Motor Operator CLIA: [id number] Uric Acid 4.2 3.4-8.0 mg/dL P-Vitamin D 25-Hydroxy Reviewed date:10/23/2024 12:47:55 PM Interpretation:42.6 Performing Lab: Notes/Report: Test performed by [facility] [address] [place] [address] [address] , [place] [address] Sterling Allen MD, Dump Motor Operator CLIA: [id number] Vitamin D 25-Hydroxy 42.6 30.0-100.0 ng/mL Interpretation [...] mellitus with other specified complication, unspecified whether skilled nursing insulin use (E11.69) Active confirmed Vital Signs Blood pressure systolic 140 mm Hg 10/21/19 25 Blood pressure diastolic 80 mm Hg 025 Heart Rate 69 /min 10/20/2024 Height 73.50 in 10/20/2024 Weight 278.2 lbs 10/20/2024 BMI 36.2 kg/m2 10/20/2024 Encounters Encounter Location Date Provider Diagnosis [facility] [address] [facility] [address] [place], [place] [phone] 10/20/2024 Derw Stout Type 2 diabetes andres itus without complication, without long-term current use of insulin E11.9 ; Essential hypertension, hypertension with unspecified goal I10 ; Mixed hyperlipidemia E78.2 ; Hypertriglyceridemia E78.1 ; Chronic gout without tophus, unspecified cause, unspecified site M1A.9XX0 ; Vitamin D deficiency E55.9 ; Prostate cancer screening Z12.5 ; History of DVT of lower extremity Z86.718 ; 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 ; Non morbid obesity E66.9 and Type 2 diabetes mellitus with other specified complication, unspecified whether skilled nursing insulin use E11.69 Assessments Encounter Date Diagnosis [...] lo wer extremity (ICD-10 - Z86.718) 10/20/2024 superintendent container terminal current us e of anticoagulant (ICD-10 - Z79.01) 10/20/2024 Non morbid obesity (ICD-10 - E66.9) 10/20/2024 Type 2 diabetes andres itus with other specified complication, unspecified whether skilled nursing insulin use (ICD-10 - E11.69) Plan Of Treatment Next Appt Details Follow Up: 6 Months, Reason: Provider Name:Drew Zuniga ry, 04/23/2025 10:00:00 AM, [address], [address], [place], [place], [phone], Progress Notes * Katlyn STATON SungDOB:09/1960 (64 yo M)Acc No.[id number]:10/20/2024 Progress Notes Patient: Katlyn CARBAJAL Provider: Alexandre Stout M.D. :1960 A ge:64 Y S ex:Male Date:10/20/2024 Address:[facility], [id number] Subjective: * Chief Complaints: * 1 . [...] Diagno stic Procedure: R T Leg DVT- [facility] 01/17-03/2007, LT Leg Cellulitis- [facility] ER 09/14/2020. * Family History: F ather: alive 92 yrs, CABG x4, colon CA. M other: alive 85 yrs, valve repair. P aternal Grand Father: , [place]. P aternal Grand Mother: , alzheimer. M [...] mellitus with other specified complication, unspecified whether skilled nursing insulin use - E11.69 Plan: * Treatment: [...] * n ext check 3 weeks at [facility] * i deal INR 2-3 * Melani Burciaga 10/20/2024 09:31: 18 AM EDT > Provider reviewed results while patient in office. 8.?care home current use of anticoagulant?LAB: PT/INR (in house) (Collection Date & Time - 10/20/2024)* Value Reference Range I NR 4.1 * c urrent dose 10 mg Daily * n ew dose 7.5 mg daily * n ext check 3 weeks at [facility] * i deal INR 2-3 * Melani Burciaga 10/20/2024 09:31: 18 AM EDT > Provider reviewed results while patient in office. * Procedure Codes: G 2211 Complex e/[place], [address] GLUCOSE TEST, 86912 GLYCATED HEMOGLOBIN TEST, Modifiers: QW , 97739 PROTHROMBIN TIME, Modifiers: QW , 3051F HG A1C>EQUAL 7.0%<8.0%, 1036F TOBACCO NON-USER, G8950 PREHTN/HTN BP DOC INDCD F/U DOC, G8753 MOST RECENT SYSTOLIC BP >= 140MM HG, G8754 MOST RECENT DIASTOLIC BP < 90MM HG * Follow Up: 6 Months * Images: Billing Information: * Visit Code: 74388 Office Visit, Est Pt., Level 4. * Procedure Codes: G2211 Complex e/[place]. [address] GLUCOSE TEST. 60640 GLYCATED HEMOGLOBIN TEST. Modifiers: QW 93120 PROTHROMBIN TIME. Modifiers: QW 3051F HG A1C>EQUAL [...] 0 10/20/2024 Generated for Andressa carter/Elías/Geraitting on: 1 11:03 AM EDT History and [...]
--- OUTSIDE RECORDS SUMMARY | 2025-02-08 11:04 | XMS_ITS | Patient Health Record ---
[facility] Address [address] [facility] [address] [place] [id number] Care Team Providers Care Sales Order Coordinator Name Role Phone Drew Stout Primary Care Provider [phone] Shae Dominguez Unavailable [phone] Allergies No Known Allergies Results Component Value [...] mg daily next check 3 weeks at [facility] ideal INR 2-3 Glucose (In-House) Reviewed date:10/20/2024 10:45:54 AM Interpretation:107 Performing Lab: Notes/Report: 107 blood glucose 107 74 - 106 mg/dL Glycohemoglobin A1c (in hous e) Reviewed date:10/20/2024 10:45:54 AM Interpretation:7.2 Performing Lab: Notes/Report: 7.2 glycohemoglobin 7.2% 5 - 6.5 % P-Comprehensive Metabolic Pa codie ([facility]) Reviewed date:10/23/2024 12:47:55 PM Interpretation:gluc 118 Performing Lab: Notes/Report: Test performed by [facility] [address] [place] [address] , [address], [place] [address] Sterling Allen MD, Administrative Support Coordinator CLIA: [id number] Sodium 139 135-145 mmol/L Potassium 4.4 3.5-5.3 [...] Interpretation:Normal Performing Lab: Notes/Report: Test performed by [facility] [address] [place] [address] , [address], [place] [address] Sterling Allen MD, Administrative Support Coordinator CLIA: [id number] Cholesterol 119 <200 mg/dL Triglycerides 127 <150 [...] Interpretation:Normal Performing Lab: Notes/Report: Test performed by [facility], [address] , [address], [place] [address] Sterling Allen MD, Administrative Support Coordinator CLIA: [id number] PSA 0.54 <4.00 ng/mL Please note this is an ultrasensitive PSA assay with a lower limit of detection of 0.014 ng/mL. This test is performed by the [employer] ECLIA methodology. Values obtained with different assay methods or kits cannot be directly compared. P-TSH reflex to FT4 Reviewed date:10/23/2024 12:47:55 PM Interpretation:Normal Performing Lab: Notes/Report: Test performed by [facility] [address] , [address], [place] [address] Sterling Allen MD, Administrative Support Coordinator CLIA: [id number] TSH reflex to FT4 1.49 0.43-5.25 mU/L P-Microalbumin/Creatinine, R andom Urine Sample Reviewed date:10/23/2024 12:47:55 PM Interpretation:Normal Performing Lab: Notes/Report: Test performed by [facility] , [address], [place] [address] Sterling Allen MD, Administrative Support Coordinator CLIA: [id number] Albumin/Creatinine Ratio, Urine <4.30 0-30 ug/mg Microalbumin, Urine, Random <0.3 Creatinine, Urine 69.7 P-Uric Acid Reviewed date:10/23/2024 12:47:55 PM Interpretation:Normal Performing Lab: Notes/Report: Test performed by [facility] [address] , [address], [place] [address] Sterling Allen MD, Administrative Support Coordinator CLIA: [id number] Uric Acid 4.2 3.4-8.0 mg/dL P-Vitamin D 25-Hydroxy Reviewed date:10/23/2024 12:47:55 PM Interpretation:42.6 Performing Lab: Notes/Report: Test performed by [facility] [address] , [address], [place] [address] Sterling Allen MD, Administrative Support Coordinator CLIA: [id number] Vitamin D 25-Hydroxy 42.6 30.0-100.0 ng/mL Interpretation of Vitamin D 25 OH: < 20 ng/mL - Deficiency 20 - 29 ng/mL - Insufficiency 30 - 100 ng/mL - Sufficiency > 100 ng/mL - Super-therapeutic- toxicity may occur above this level. Clinical correlation required. 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 H-PT/INR Reviewed date:12/21/2024 01:54:16 PM Interpretation: Performing Lab: Notes/Report: PT 37.7 10.1-12.5 seconds INR 3.75 0.9-1.1 INDICATION INR RANGE Therapy for DVT, [...] Vaccine Route Administration Date Status Comme nts COVID 19 Darcie Unknown 09/05/2020 Administered Fluzone Quad (6months&older) IM Intramuscular 01/31/2018 Administered Given by MP Fluzone Quad (6months&older) IM Intramuscular 02/06/2019 Administered Prevnar (PCV20) IM Intramuscular 04/21/2024 Administered Tetanus Tdap-Adacel (over 7yrs) IM Intramuscular 10/18/2006 Administered Tetanus Tdap-Adacel (over 7yrs) IM Intramuscular 04/20/2022 Administered Problems Problem Type SNOMED Code ICD Code Onset Dates Problem Status W/U Status Risk Notes Problem Vitamin D deficiency (36593158) Vitamin D deficiency (E55.9) Active confirmed Problem Essential hypertension (95586524) Essential hypertension (I10) Active confirmed Problem Hypertriglyceridemia (071987252) Hypertriglyceridemia (E78.1) Active confirmed Problem History of thromboembolism of vein (021457854) History of DVT of lower extremity (Z86.718) Active confirmed PT/INR order 12/17/20 to 12/17/21 Problem Long-term current us e of anticoagulant (325752385) 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) Active confirmed Problem Sebaceous cyst (631126364) Sebaceous cyst (L72.3) Active confirmed Problem Mixed hyperlipidemia (832967916) Mixed hyperlipidemia (E78.2) Active confirmed Problem Obesity (203190263) Non morbid o besity due to excess calories (E66.09) Active confirmed Problem Obstructive sleep apnea syndrome (36815871) Obstructive sleep apnea syndrome (G47.33) Active confirmed Problem Chronic gouty arthritis (02694455) Chronic gout without tophus, unspecified cause, unspecified site (M1A.9XX0) Active confirmed Problem Essential hypertension (89007132) Essential hypertension, hypertension with unspecified goal (I10) Active confirmed Problem Type II diabetes mellitus without complication (137181660) Type 2 diabetes mellitus without complication, without long-term current use of insulin (E11.9) Active confirmed Problem Obesity (898496714) Non morbid o besity (E66.9) Active confirmed Problem Type 2 diabetes mellitus with other specified complication, unspecified whether rodent exterminator insulin use (E11.69) Active confirmed Vital Signs Heart Rate 69 /min 10/20/2024 Blood pressure diastolic 80 mm Hg 10/20/2024 Height 73.50 in 10/20/2024 Blood pressure systolic 140 mm Hg 10/20/2024 Weight 278.2 lbs 10/20/2024 BMI 36.2 kg/m2 10/20/2024 Encounters Encounter Location Date [facility] [address] [place] [id number] 04/21/2024 Drew Haverhill Type 2 diabetes mellitus without complication, without long-term current use of insulin E11.9 ; Essential hypertension I10 ; History of DVT of lower extremity Z86.718 ; 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 [address] [id number] 06/19/2024 Shae Dominguez Influenza A J10.1 [facility] [place] [address] [place] [id number] 10/20/2024 Drewgeorges Stout Type 2 diabetes mellitus without complication, without long-term current use of insulin E11.9 ; Essential hypertension, hypertension with unspecified goal I10 ; Mixed hyperlipidemia E78.2 ; Hypertriglyceridemia E78.1 ; Chronic gout without tophus, unspecified cause, unspecified site M1A.9XX0 ; Vitamin D deficiency E55.9 ; Prostate cancer screening Z12.5 ; History of DVT of lower extremity Z86.718 ; petroleum terminal plant operator current use of anticoagulant Z79.01 ; Non morbid obesity E66.9 and Type 2 diabetes mellitus with other specified complication, unspecified whether rodent exterminator insulin use E11.69 [facility] [address] [place], [place] [id number] 03/15/2024 Drew Haverhill [facility] [address] [place], [place] [id number] 04/28/2024 Drew Haverhill Type 2 diabetes mellitus without complication, without long-term current use of insulin E11.9 ; Essential hypertension I10 and History of DVT of lower extremity Z86.718 [facility] [address] [place], [place] [id number] 04/28/2024 Drew Haverhill [facility] [address] [place], [place] [id number] 06/05/2024 Drew Haverhill [facility] [address] [place], [place] [id number] 07/07/2024 Drew Haverhill [facility] [address] [place], [place] [id number] 07/18/2024 Drew Haverhill [facility] [address] [place], [place] [id number] 07/21/2024 Drew Haverhill [facility] [address] [place], [place] [id number] 08/14/2024 Drew Haverhill [facility] [address] [place], [place] [id number] 08/29/2024 Drew Haverhill [facility] [address] [place], [place] [id number] 09/27/2024 Drew Haverhill [facility] [address] [place], [place] [id number] 10/23/2024 Drew Haverhill [facility] [address] [place], [place] [id number] 11/16/2024 Drew Haverhill [facility] [address] [place] [id number] 11/29/2024 Drew Haverhill [facility] [address] [place], [place] [id number] 12/04/2024 Drew Haverhill Type 2 diabetes mellitus without complication, without long-term current use of insulin E11.9 ; History of DVT of lower extremity Z86.718 and Essential hypertension I10 [facility] [address] [place] [id number] 12/08/2024 Drew Haverhill [facility] [address] [place] [id number] 12/12/2024 Drew Haverhill [facility] [address] [place], [place] [id number] 12/21/2024 Drew Haverhill Assessments Encounter Date Diagnosis (ICD Code) Assessment [...] fluids, rest, supportive measures for fever/symptom relief 10/20/2024 Essential hypertensi on, hypertension with unspecified [...] lo wer extremity (ICD-10 - Z86.718) 04/21/2024 [facility] current us e of anticoagulant (ICD-10 - Z79.01) 04/28/2024 History of DVT of lo wer extremity (ICD-10 - Z86.718) 10/20/2024 Hypertriglyceridemia (ICD-10 - E78.1) 12/04/2024 Essential hypertensi on (ICD-10 - I10) 10/20/2024 Chronic gout without tophus, unspecified cause, unspecified site (ICD-10 - M1A.9XX0) 04/21/2024 Colon cancer screeni ng (ICD-10 - Z12.11) 10/20/2024 Vitamin D deficiency (ICD-10 - E55.9) 04/21/2024 Encounter for immunization (ICD-10 - Z23) 10/20/2024 Prostate cancer screening (ICD-10 - Z12.5) 10/20/2024 History of DVT of lo wer extremity (ICD-10 - Z86.718) 10/20/2024 petroleum terminal plant operator current us e of anticoagulant (ICD-10 - Z79.01) 10/20/2024 Non morbid obesity (ICD-10 - E66.9) 10/20/2024 Type 2 diabetes andres itus with other specified complication, unspecified whether usp insulin use (ICD-10 - E11.69) Plan Of Treatment Next Appt Details Provider Name:Drew Zuniga ry, 04/23/2025 10:00:00 AM, [address], [place], [place], [id number], Insurance Providers Payer Name Payer Address Payer Phone Subscriber Number Group Number Insured Name Patient Relationship to Insured Coverage Start Date Coverage End Date MEDICARE PART B [address] [address] [place] [address] [phone] [id number] Katlyn Staton Self - patient is the insured [employer] [address] [address] [place] [address] [id number] Katlyn Staton Self - patient is the insured Medical (General) History Medical History History ICD Code Type 2 Diabetes DVT, Protein S deficiency Hypertriglyceridemia Hyperuricemia Colon polyps, needs colonoscopy every 5 years Testosterone deficiency Vitamin D deficiency sleep apnea, Dx: 2016 RE positive July 2019 Eye Exam 01/2022 Surgical History Surgery Date(Month/Year) Colonoscopy 2008, 2013, 2018 Hospitalization History Reason Date(Month/Year) LT Leg Cellulitis- [facility] ER 09/14/2020 RT Leg DVT- [facility] 01/17-03/2007
[2025-02-08 11:58] LABS: INR 2.61 (0.9-1.1); Prothrombin Time 27.0 seconds (10.1-12.5)
== END 2025-02-08 23:59 | disposition home or self-care (01) ==
LOC: LAB 10:43
PROVIDERS: PCP Family Medicine; Visit Provider Family Medicine
DX: Z79.01 Long term (current) use of anticoagulants (principal)
CPT/HCPCS: 36415; 85610

== ENCOUNTER 2025-03-19 11:54 | Outpatient (CLI) | payer MEDICARE, OTHER, SELFPAY ==
[2025-03-19 12:33] LABS: INR 3.64 (0.9-1.1); Prothrombin Time 36.7 seconds (10.1-12.5)
== END 2025-03-19 23:59 | disposition home or self-care (01) ==
LOC: LAB 11:55
PROVIDERS: PCP Family Medicine; Visit Provider Family Medicine
DX: Z02.89 Encounter for other administrative examinations (principal); Z79.01 Long term (current) use of anticoagulants
CPT/HCPCS: 36415; 85610